=== PATIENT | male | born 1945 | race Caucasian/White ===

== ENCOUNTER → 2016-08-17 | Outpatient (CLI) | payer MEDICARE, OTHER ==
[2016-08-17 09:41] LABS: FREE T3 3.61 pg/mL (2.77-5.27)
[2016-08-17 09:55] LABS: THYROID STIMULATING HORMONE 2.39 uIU/mL (0.47-4.68)
[2016-08-17 10:34] LABS: FOLATE > 20.00 ng/mL (>2.76)
== END ==
LOC: OD 08:04
PROVIDERS: ATTEND Specialist
DX: G31.84 Mild cognitive impairment of uncertain or unknown etiology (principal); G47.33 Obstructive sleep apnea (adult) (pediatric)
CPT/HCPCS: 36415; 82607; 82746; 84439; 84443; 84481

== ENCOUNTER → 2016-12-13 | Outpatient (CLI) | payer MEDICARE, OTHER ==
[2016-12-13 08:12] LABS: ABSOLUTE EOSINOPHILS # (AUTO) 0.2 10^3/uL (0.0-0.6); ABSOLUTE LYMPHOCYTES (AUTO) 1.4 10^3/uL (0.5-4.7); ABSOLUTE MONOCYTES (AUTO) 0.5 10^3/uL (0.1-1.4); ABSOLUTE NEUT (AUTO) 3.9 10^3/uL (1.7-8.2); BASOPHILS % (AUTO) 0.8 % (0-2); EOSINOPHILS % (AUTO) 3.8 % (0-6); HEMATOCRIT 41.6 % (37.9-51.0); HGB HCT DIFFERENCE 0.4; LYMPHOCYTES % (AUTO) 22.5 % (13-45); MEAN CORPUSCULAR HEMOGLOBIN 30.7 pg (27.0-33.4); MEAN CORPUSCULAR HGB CONC 33.6 g/dL (32.0-36.0); MEAN CORPUSCULAR VOLUME 91 fl (80-97); MONOCYTES % (AUTO) 8.5 % (3-13); RED BLOOD COUNT 4.56 10^6/uL (4.35-5.55); SEGMENTED NEUTROPHILS % (AUTO) 64.4 % (42-78); WHITE BLOOD COUNT 6.1 10^3/uL (4.0-10.5)
--- NOTE | 2016-12-13 08:31 | RADIOLOGY REPORT (SQ) ---
EXAM DESCRIPTION: CHEST PA/LATERAL COMPLETED DATE/TIME: 12/13/2016 8:05 am REASON FOR STUDY: PRE-OP COMPARISON: 09/24/2015 EXAM PARAMETERS: NUMBER OF VIEWS: two views TECHNIQUE: Digital Frontal and Lateral radiographic views of the chest acquired. RADIATION DOSE: NA LIMITATIONS: none FINDINGS: LUNGS AND PLEURA: No opacities, masses or pneumothorax. No pleural effusion. MEDIASTINUM AND HILAR STRUCTURES: No masses or contour abnormalities. HEART AND VASCULAR STRUCTURES: Heart normal size. No evidence for failure. BONES: No acute findings. HARDWARE: None in the chest. OTHER: No other significant finding. IMPRESSION: NO SIGNIFICANT RADIOGRAPHIC FINDING IN THE CHEST. TECHNICAL DOCUMENTATION: JOB ID: [id number] [employer]- All Rights Reserved
[2016-12-13 08:32] LABS: APPEARANCE,URINE CLEAR; BILIRUBIN,URINE NEGATIVE (NEGATIVE); GLUCOSE, URINE NEGATIVE (NEGATIVE); KETONES,URINE NEGATIVE (NEGATIVE); LEUKOCYTE ESTERASE,URINE NEGATIVE (NEGATIVE); NITRITE,URINE NEGATIVE (NEGATIVE); PROTEIN,URINE 30 mg/dL (NEGATIVE); URINE SPECIFIC GRAVITY 1.019; UROBILINOGEN,URINE NEGATIVE mg/dL (<2.0)
[2016-12-13 08:42] LABS: ANION GAP 9 (5-19); BLOOD UREA NITROGEN 17 mg/dL (7-20); CALCIUM 9.7 mg/dL (8.4-10.2); CARBON DIOXIDE 29 mmol/L (22-30); CHLORIDE 102 mmol/L (98-107); CREATININE RESULT 0.82 mg/dL (0.52-1.25); GLUCOSE 106 mg/dL (75-110); SODIUM 139.8 mmol/L (137-145)
[2016-12-13 08:43] LABS: C-REACTIVE PROTEIN < 5.0 mg/L (<10.0)
--- NOTE | 2016-12-13 08:45 | EKG REPORT ---
SEVERITY:- ABNORMAL ECG - SINUS RHYTHM WITH BLOCKED APC SUPRAVENTRICULAR BIGEMINY PROBABLE LEFT ATRIAL ABNORMALITY RIGHT BUNDLE BRANCH BLOCK : Confirmed by: Meredith Wallace 13-Dec-2016 08:44:44
[2016-12-13 08:52] LABS: ERYTHROCYTE SEDIMENTATION RATE 35 mm/hr (0-20)
== END ==
LOC: OD 07:17
PROVIDERS: ATTEND Orthopaedic Surgery
DX: Z01.818 Encounter for other preprocedural examination (principal)
CPT/HCPCS: 36415; 71020; 80048; 81001; 83036; 85025; 85652; 86140; 93005; 93010

== ENCOUNTER 2017-01-10 05:20 | Inpatient (IN) | payer MEDICARE, OTHER ==
[~2017-01-10 05:20] MED LIST: BUPIVACAINE INJ/PF LIPOSOME/PF 266 MG/20 ML SDV INJ PRN; CEFAZOLIN INJ 1 GM VIAL IV PRN; IBUPROFEN 800 MG in NORMAL SALINE 250 ML IV PRN; RINGERS SOLUTION,LACTATED 1,000 ML IV PRN
[2017-01-10] MEDS: VANCOMYCIN HCL 1,000 MG in DEXTROSE 5%-WATER 250 ML IV PRN ×2 (06:22→11:16)
[2017-01-10] MEDS: OXYCODONE HCL SR 10 MG TABLET PO PRN ×2 (06:30→11:16)
[2017-01-10] MEDS: LANSOPRAZOLE 15 MG TAB.RAP.DR PO PRN ×2 (06:30→11:16)
[2017-01-10] MEDS ORDERED: THROMBIN (BOVINE) TOPICAL 20000 UNIT VIAL ONE (06:53)
[2017-01-10] MEDS ORDERED: THROMBIN (BOVINE) 5000 UNIT EPITAXIS KIT ONE (06:53)
[2017-01-10] MEDS ORDERED: BUPIVACAINE INJ/PF LIPOSOME/PF 266 MG/20 ML SDV ONE (06:53)
[2017-01-10] MEDS ORDERED: MIDAZOLAM 2 MG/2 ML INJ ONE (07:10)
[2017-01-10] MEDS ORDERED: TRANEXAMIC ACID INJ/PF 1,000 MG/10 ML SDV IV ONE (07:10)
[2017-01-10] MEDS ORDERED: PROPOFOL INJ 200 MG/20 ML VIAL IV ONE (07:10)
[2017-01-10] MEDS ORDERED: FENTANYL CITRATE INJ/PF 100 MCG/2 ML AMPUL ONE (07:10)
[2017-01-10] MEDS ORDERED: EPHEDRINE SULFATE INJ 50 MG/1 ML AMPULE ONE (07:11)
--- NOTE | 2017-01-10 07:14 | EKG REPORT ---
SEVERITY:- ABNORMAL ECG - SINUS RHYTHM SUPRAVENTRICULAR BIGEMINY RIGHT BUNDLE BRANCH BLOCK : Confirmed by: Reji Coelho MD 10-Jan-2017 07:14:02
[2017-01-10] MEDS ORDERED: MEPERIDINE HCL/PF INJ 25 MG/1 ML DISP.SYRIN IV PRN (08:27)
[2017-01-10] MEDS ORDERED: OXYCODONE-ACETAMINOPHEN 5-325 MG TABLET PO PRN ×2 (08:27)
[2017-01-10] MEDS ORDERED: MORPHINE SULFATE 10 MG/ML INJ IV PRN ×4 (08:27→08:49)
[2017-01-10] MEDS ORDERED: PROMETHAZINE HCL INJ 25 MG/1 ML VIAL IV PRN ×2 (08:27)
[2017-01-10] MEDS ORDERED: DIPHENHYDRAMINE HCL 50 MG/ML VIAL IV PRN ×2 (08:27→08:49)
[2017-01-10] MEDS ORDERED: FENTANYL CITRATE INJ/PF 100 MCG/2 ML AMPUL IV PRN ×3 (08:27)
--- NOTE | 2017-01-10 08:35 | Operative Report ---
Operative Report DATE OF SURGERY: 01/10/17 PREOPERATIVE DIAGNOSIS: Mechanical complication left total hip OPERATION: Left hip revision arthroplasty. Sciatic neuro lysis SURGEON: TARAH MOHR 1ST HELPER METAL HANGING: LEN AC ANESTHESIA: Spinal TISSUE REMOVED OR ALTERED: Cultures to microbiology. Implants to central sterile ESTIMATED BLOOD LOSS: 100 PROCEDURE: With the patient in a right lateral decubitus position on the operating table the left lower extremity hunker prepped and draped in sterile fashion. Curvilinear densities made over the greater trochanter in line with previous surgical approach. The sciatic nerve is identified in the sciatic notch and traced distally to the gluteal sling. Is protected throughout its length for the remainder of the case. Upon entering the capsule cultures were taken and sent for culture and sensitivity. The hip is dislocated. The existing ceramic head is disimpacted. Attention is now turned to the acetabulum. Soft tissues cleared off the room and the acetabulum and the existing polyethylene is removed using an osteotome. Subsequently a Biomet 36 mm cross-link polyethylene liner was impacted into position. Trial reductions in outperformed 36 mm heads and increasing neck length extension. We settle on a +6. Subsequent 36 mm chrome cobalt head with a 6 mm neck extension is impacted onto the trunnion. The hip was reduced. The wound is kamini with pulse lavage. The soft tissues closed with interrupted Vicryl and the skin with dionisio. A sterile compressive dressing was applied and the patient returned to PACU satisfactory condition.
[2017-01-10] MEDS ORDERED: MORPHINE SULFATE 10 MG/ML INJ IM PRN (08:49)
[2017-01-10] MEDS ORDERED: OXYCODONE HCL IR 5 MG TABLET PO PRN (08:49)
[2017-01-10] MEDS ORDERED: RINGERS SOLUTION,LACTATED 1,000 ML IV PRN (08:49)
[2017-01-10] MEDS ORDERED: ONDANSETRON 4 MG TAB.RAPDIS PO PRN ×2 (08:49→13:00)
[2017-01-10] MEDS ORDERED: DEXTROSE 40% GEL 15 GM TUBE PO PRN (09:34)
[2017-01-10] MEDS ORDERED: INSULIN LISPRO 100 UNIT/ML 3 ML VIAL SUBCUT PRN (09:34)
[2017-01-10] MEDS ORDERED: DEXTROSE 50%-WATER SYRINGE 12.5 GM/25 ML DOSE IV PRN (09:34)
[2017-01-10] MEDS ORDERED: DEXTROSE 50%-WATER SYRINGE 25 GM/50 ML DOSE IV PRN (09:34)
[2017-01-10] MEDS ORDERED: DEXTROSE 40% GEL 15 GM TUBE X 2 PO PRN (09:34)
[2017-01-10] MEDS ORDERED: GLUCAGON,HUMAN RECOMB 1 MG INJ IM PRN (09:34)
[2017-01-10] MEDS ORDERED: ONDANSETRON HCL INJ/PF 4 MG/2 ML SDV ONE ×2 (09:37→13:15)
[2017-01-10] MEDS ORDERED: [UNRECOGNIZED DRUG - REMARK] PO SCH (10:00)
[2017-01-10] MEDS ORDERED: LISINOPRIL PO SCH (10:00)
[2017-01-10] MEDS ORDERED: (PENDING PHARMACY ID) (Sitagliptin Phos/Metformin Hcl [Janumet 50-1,000 Mg Tablet] 1 TAB) PO SCH (10:00)
[2017-01-10] MEDS ORDERED: THIAMINE HCL PO SCH (10:00)
[2017-01-10] MEDS ORDERED: OXYCODONE HCL SR 10 MG TABLET PO SCH (10:00)
[2017-01-10] MEDS ORDERED: METFORMIN HCL 500 MG TABLET PO SCH (10:00)
--- NOTE | 2017-01-10 10:05 | RADIOLOGY REPORT (SQ) ---
EXAM DESCRIPTION: HIP LEFT AP/LATERAL COMPLETED DATE/TIME: 01/10/2017 9:38 am REASON FOR STUDY: Post Op Long Cassette in PACU T84.031A MECH LOOSENING OF INTERNAL LEFT HIP PROST HETIC JOIN COMPARISON: 08/25/2014 NUMBER OF VIEWS: Two views. TECHNIQUE: AP and frog-leg view of the left hip. LIMITATIONS: None. FINDINGS: MINERALIZATION: There is osteopenia. LEFT HIP: There has been bone resorption around the proximal aspect of the prosthesis. No acute frac ture or dislocation. OPPOSITE HIP: There are degenerative changes in the right hip. SOFT TISSUES: No findings. OTHER: No other significant finding. IMPRESSION: There is been bone resorption along the medial aspect of the femoral shaft when compared to prior study. There has been a slight increase in heterotopic bone superior and laterally. TECHNICAL DOCUMENTATION: JOB ID: [id number] [employer]- All Rights Reserved
[2017-01-10] MEDS ORDERED: TRANEXAMIC ACID INJ/PF 1,000 MG/10 ML SDV IV PRN (10:30)
[2017-01-10] MEDS: PREGABALIN 75 MG CAPSULE PO SCH ×2 (11:44→17:31)
[2017-01-10] MEDS ORDERED: LISINOPRIL 10 MG TABLET PO ONE (12:00)
[2017-01-10] MEDS ORDERED: THIAMINE HCL 100 MG TABLET PO ONE (12:00)
[2017-01-10] MEDS ORDERED: CETIRIZINE 10 MG TABLET PO ONE (12:00)
[2017-01-10] MEDS ORDERED: ACETAMINOPHEN 100 ML IV ONE (14:50)
[2017-01-10] MEDS: IBUPROFEN 800 MG in NORMAL SALINE 250 ML IV SCH (17:31)
[2017-01-10] MEDS: SITAGLIPTIN PHOSPHATE 50 MG TABLET PO SCH (17:31)
[2017-01-10] MEDS: METFORMIN HCL 500 MG TABLET PO SCH (17:31)
[2017-01-10] MEDS ORDERED: VANCOMYCIN HCL 1,000 MG in DEXTROSE 5%-WATER 250 ML IV ONE (21:00)
[2017-01-10] MEDS: OXYCODONE HCL SR 10 MG TABLET PO SCH (22:06)
[2017-01-10] MEDS: CYCLOBENZAPRINE HCL 10 MG TABLET PO SCH (22:07)
[2017-01-10] MEDS: RIVAROXABAN 10 MG TABLET PO SCH (22:08)
[2017-01-11] MEDS: IBUPROFEN 800 MG in NORMAL SALINE 250 ML IV SCH ×3 (02:50→17:22)
[2017-01-11] MEDS: LANSOPRAZOLE 30 MG TAB.RAP.DR PO SCH (05:02)
[2017-01-11 05:29] LABS: ANION GAP 10 (5-19); BLOOD UREA NITROGEN 10 mg/dL (7-20); CALCIUM 8.9 mg/dL (8.4-10.2); CARBON DIOXIDE 29 mmol/L (22-30); CHLORIDE 100 mmol/L (98-107); CREATININE RESULT 0.72 mg/dL (0.52-1.25); GLUCOSE 114 mg/dL (75-110); POTASSIUM 4.4 mmol/L (3.6-5.0); SODIUM 139.1 mmol/L (137-145)
[2017-01-11 05:30] LABS: HEMATOCRIT 35.3 % (37.9-51.0); HEMOGLOBIN 12.1 g/dL (13.5-17.0); MEAN CORPUSCULAR HGB CONC 34.3 g/dL (32.0-36.0); MEAN CORPUSCULAR VOLUME 91 fl (80-97); RED CELL DISTRIBUTION WIDTH 13.9 % (11.5-14.0); WHITE BLOOD COUNT 6.8 10^3/uL (4.0-10.5)
--- NOTE | 2017-01-11 06:47 | PDOC PROGRESS REPORT ---
Subjective Progress Note for:: 01/11/17 Subjective:: Patient complaining about right hip pain Physical Exam Vital Signs: Temp Pulse Resp BP Pulse Ox 36.4 C 80 20 154/79 H 95 01/10/17 23:24 01/11/17 02:00 01/10/17 23:24 01/10/17 23:24 01/10/17 23:24 Intake & Output 01/09/17 01/10/17 01/11/17 06:59 06:59 06:59 Intake Total 4910 Output Total 2375 Balance 2535 General appearance: PRESENT: mild distress Head exam: PRESENT: normocephalic Eye exam: PRESENT: EOMI Respiratory exam: PRESENT: unlabored Cardiovascular exam: PRESENT: RRR Pulses: PRESENT: +1 pedal pulses bilateral Vascular exam: PRESENT: normal capillary refill GI/Abdominal exam: PRESENT: soft Rectal exam: PRESENT: deferred Extremities exam: PRESENT: other - Left hip dressing clean dry and intact. Leg lengths are equal. Distal neurovascular examination is intact. Neurological exam: PRESENT: alert, awake, oriented to person, oriented to place , oriented to time, oriented to situation. ABSENT: motor sensory deficit Psychiatric exam: PRESENT: appropriate affect, normal mood. ABSENT: homicidal ideation, suicidal ideation Skin exam: PRESENT: dry, intact, warm. ABSENT: cyanosis, rash Results Laboratory Results: 01/11/17 05:00 01/11/17 05:00 01/11/17 01/11/17 05:00 05:00 WBC 6.8 RBC 3.90 L Hgb 12.1 L Hct 35.3 L MCV 91 MCH 31.0 MCHC 34.3 RDW 13.9 Plt Count 189 Sodium 139.1 Potassium 4.4 Chloride 100 Carbon Dioxide 29 Anion Gap 10 BUN 10 Creatinine 0.72 Est GFR ( Amer) > 60 Est GFR (Non-Af Amer) > 60 Glucose 114 H Calcium 8.9 Impressions: Hip X-Ray 01/10/17 08:54 IMPRESSION: There is been bone resorption along the medial aspect of the femoral shaft when compared to prior study. There has been a slight increase in heterotopic bone superior and laterally. Status: Imported from PACS Assessment & Plan - Diagnosis (1) Other mechanical complication of internal left hip prosthesis Is this a current diagnosis for this admission?: Yes Plan: 71-year-old white male postop day 1 from left hip revision arthroplasty. Patient is not complaining of left lower extremity pain. Wound is clean dry and intact. He is working with physical therapy and ambulation and was able to ambulate 80 feet yesterday. Hematocrit remains above 35%. Blood glucose was controlled between 132 and 140. Anticipate discharge home tomorrow with home health nursing, home health physical therapy, wheeled walker, bedside commode. - Time Time Spent with patient: 15-24 minutes Anticipated discharge: Home with Homehealth Within: within 24 hours
[2017-01-11] MEDS: PREGABALIN 75 MG CAPSULE PO SCH ×2 (09:31→17:24)
[2017-01-11] MEDS: FOLIC ACID 1 MG TABLET PO SCH (09:32)
[2017-01-11] MEDS: CETIRIZINE 10 MG TABLET PO SCH (09:32)
[2017-01-11] MEDS: METFORMIN HCL 500 MG TABLET PO SCH ×2 (09:32→17:24)
[2017-01-11] MEDS: THIAMINE HCL 100 MG TABLET PO SCH (09:32)
[2017-01-11] MEDS: SITAGLIPTIN PHOSPHATE 50 MG TABLET PO SCH ×2 (09:33→17:24)
[2017-01-11] MEDS: GABAPENTIN 300 MG CAPSULE PO SCH (09:33)
[2017-01-11] MEDS: HYDROCHLOROTHIAZIDE 12.5 MG CAPSULE PO SCH (09:33)
[2017-01-11] MEDS: METOPROLOL SUCCINATE 50 MG TAB.SR.24H PO SCH (09:34)
[2017-01-11] MEDS: OXYCODONE HCL SR 10 MG TABLET PO SCH ×2 (09:34→21:59)
[2017-01-11] MEDS: LISINOPRIL 10 MG TABLET PO SCH (09:35)
[2017-01-11] MEDS ORDERED: LISINOPRIL 10 MG TABLET PO SCH (10:00)
[2017-01-11] MEDS: CYCLOBENZAPRINE HCL 10 MG TABLET PO SCH (21:56)
[2017-01-11] MEDS: ATORVASTATIN CALCIUM 20 MG TABLET PO SCH (21:56)
[2017-01-11] MEDS: RIVAROXABAN 10 MG TABLET PO SCH (21:57)
[2017-01-12] MEDS ORDERED: ACETAMINOPHEN 325 MG TABLET PO PRN (01:03)
[2017-01-12] MEDS: IBUPROFEN 800 MG in NORMAL SALINE 250 ML IV SCH ×2 (01:10→10:54)
[2017-01-12 01:33] LABS: APPEARANCE,URINE SLIGHTLY-CLOUDY; BILIRUBIN,URINE NEGATIVE (NEGATIVE); GLUCOSE, URINE NEGATIVE (NEGATIVE); KETONES,URINE NEGATIVE (NEGATIVE); LEUKOCYTE ESTERASE,URINE NEGATIVE (NEGATIVE); NITRITE,URINE NEGATIVE (NEGATIVE); PROTEIN,URINE NEGATIVE (NEGATIVE); URINE SPECIFIC GRAVITY 1.014; UROBILINOGEN,URINE NEGATIVE mg/dL (<2.0)
[2017-01-12 05:14] LABS: HEMATOCRIT 31.9 % (37.9-51.0); HGB HCT DIFFERENCE 1.1; MEAN CORPUSCULAR HEMOGLOBIN 31.3 pg (27.0-33.4); MEAN CORPUSCULAR HGB CONC 34.4 g/dL (32.0-36.0); MEAN CORPUSCULAR VOLUME 91 fl (80-97); RED BLOOD COUNT 3.51 10^6/uL (4.35-5.55); WHITE BLOOD COUNT 8.7 10^3/uL (4.0-10.5)
[2017-01-12] MEDS: LANSOPRAZOLE 30 MG TAB.RAP.DR PO SCH (05:24)
--- NOTE | 2017-01-12 07:09 | PDOC PROGRESS REPORT ---
Subjective Progress Note for:: 01/12/17 Subjective:: "I have to get up and pee". Patient with mental status changes. Self discontinued both telemetry as well as his IV Physical Exam Vital Signs: Temp Pulse Resp BP Pulse Ox 38.3 C H 77 20 113/50 L 90 L 01/12/17 00:00 01/12/17 02:00 01/12/17 00:00 01/12/17 00:00 01/12/17 00:00 Intake & Output 01/11/17 01/12/17 01/13/17 06:59 06:59 06:59 Intake Total 5210 950 Output Total 3875 1150 Balance 1335 -200 Weight 117.9 kg General appearance: PRESENT: no acute distress Head exam: PRESENT: normocephalic Respiratory exam: PRESENT: unlabored Cardiovascular exam: PRESENT: RRR Pulses: PRESENT: +1 pedal pulses bilateral Vascular exam: PRESENT: normal capillary refill GI/Abdominal exam: PRESENT: soft Rectal exam: PRESENT: deferred Musculoskeletal exam: PRESENT: other - Left hip dressing is clean dry and intact. Leg lengths are equal. Distal neurovascular examination is intact. Neurological exam: PRESENT: alert, awake, oriented to person, oriented to place , other - Patient exhibiting mental status changes Psychiatric exam: PRESENT: agitated Skin exam: PRESENT: dry, intact, warm. ABSENT: cyanosis, rash Results Laboratory Results: 01/12/17 05:04 01/11/17 05:00 01/12/17 01/12/17 00:50 05:04 WBC 8.7 RBC 3.51 L Hgb 11.0 L Hct 31.9 L MCV 91 MCH 31.3 MCHC 34.4 RDW 14.0 Plt Count 174 Urine Color YELLOW Urine Appearance SLIGHTLY-CLOUDY Urine pH 5.0 Ur Specific [place] 1.014 Urine Protein NEGATIVE Urine Glucose (UA) NEGATIVE Urine Ketones NEGATIVE Urine Blood NEGATIVE Urine Nitrite NEGATIVE Ur Leukocyte Esterase NEGATIVE Urine WBC (Auto) 2 Urine RBC (Auto) 1 Impressions: Hip X-Ray 01/10/17 08:54 IMPRESSION: There is been bone resorption along the medial aspect of the femoral shaft when compared to prior study. There has been a slight increase in heterotopic bone superior and laterally. Status: Imported from PACS Assessment & Plan - Diagnosis (1) Other mechanical complication of internal left hip prosthesis Is this a current diagnosis for this admission?: Yes Plan: Patient with excellent progress with physical therapy is to ambulate 200 feet. However the patient was febrile last night to 38.3C. He was pancultured. Results are pending. White count has increased 8.7. He is exhibiting mental status changes and this is likely secondary to pharmacy. OxyContin, oxycodone, and Ambien are discontinued. Patient will continue on with physical therapy stay and observation. Hopefully the mental status changes will reverse and the patient can be discharged home. - Time Time Spent with patient: 15-24 minutes Anticipated discharge: Home with Homehealth Within: within 24 hours
[2017-01-12] MEDS: HYDROCHLOROTHIAZIDE 12.5 MG CAPSULE PO SCH (10:51)
[2017-01-12] MEDS: METOPROLOL SUCCINATE 50 MG TAB.SR.24H PO SCH (10:51)
[2017-01-12] MEDS: THIAMINE HCL 100 MG TABLET PO SCH (10:52)
[2017-01-12] MEDS: LISINOPRIL 10 MG TABLET PO SCH (10:52)
[2017-01-12] MEDS: SITAGLIPTIN PHOSPHATE 50 MG TABLET PO SCH ×2 (10:52→18:24)
[2017-01-12] MEDS: CETIRIZINE 10 MG TABLET PO SCH (10:53)
[2017-01-12] MEDS: GABAPENTIN 300 MG CAPSULE PO SCH (10:53)
[2017-01-12] MEDS: METFORMIN HCL 500 MG TABLET PO SCH ×2 (10:53→18:25)
[2017-01-12] MEDS: PREGABALIN 75 MG CAPSULE PO SCH ×2 (10:53→18:24)
[2017-01-12] MEDS: FOLIC ACID 1 MG TABLET PO SCH (10:54)
[2017-01-12] MEDS: RIVAROXABAN 10 MG TABLET PO SCH (21:56)
[2017-01-12] MEDS: CYCLOBENZAPRINE HCL 10 MG TABLET PO SCH (21:56)
[2017-01-12] MEDS: ATORVASTATIN CALCIUM 20 MG TABLET PO SCH (21:56)
[2017-01-13] MEDS: LANSOPRAZOLE 30 MG TAB.RAP.DR PO SCH (04:28)
[2017-01-13 06:40] LABS: HEMATOCRIT 31.4 % (37.9-51.0); HEMOGLOBIN 10.7 g/dL (13.5-17.0); HGB HCT DIFFERENCE 0.7; MEAN CORPUSCULAR VOLUME 91 fl (80-97); RED BLOOD COUNT 3.46 10^6/uL (4.35-5.55); RED CELL DISTRIBUTION WIDTH 13.9 % (11.5-14.0); WHITE BLOOD COUNT 9.2 10^3/uL (4.0-10.5)
--- NOTE | 2017-01-13 06:56 | PDOC DISCHARGE SUMMARY ---
General - Admit/Disc Date/PCP Admission Date/Primary Care Provider: 01/10/17 05:20 Discharge Date: 01/13/17 - Discharge Diagnosis (1) Other mechanical complication of internal left hip prosthesis Is this a current diagnosis for this admission?: Yes - Additional Information Resuscitation Status: Full Code Discharge Diet: As Tolerated, Regular Discharge Activity: Balance Activity w/Rest, No Driving, No tub bath Home Medications: Aspirin [Ecotrin 81 mg EC Tablet] 81 mg PO DAILY 01/10/17 Atorvastatin Calcium [Lipitor 20 mg Tablet] 20 mg PO QHS 01/10/17 Celecoxib [Celebrex 200 mg Capsule] 200 mg PO DAILY 01/10/17 Cetirizine HCl [Zyrtec 10 mg Chewable Tab] 10 mg PO DAILY 01/10/17 Folic Acid [Folvite 1 mg Tablet] 1 mg PO DAILY 01/10/17 Gabapentin [Neurontin 300 mg Capsule] 300 mg PO Q8 01/10/17 Hydrochlorothiazide [Hydrodiuril 12.5 mg Capsule] 12.5 mg PO DAILY 01/10/17 Lisinopril [Prinivil 40 mg Tablet] 40 mg PO DAILY 01/10/17 Metoprolol Succinate [Toprol Xl 50 mg Tab.sr] 50 mg PO DAILY 01/10/17 Sitagliptin Phos/Metformin HCl [Janumet 50-1,000 mg Tablet] 1 tab PO BID Thiamine HCl [Vitamin B-1] 100 mg PO DAILY 01/10/17 Rivaroxaban [Xarelto 10 mg Tablet] 10 mg PO QHS tablet 01/13/17 History of Present Illness History of Present Illness: DAVID SANTANA is a 71 year old male status post left hip arthroplasty in the distant past with polyethylene wear. Patient is also having progressive ostial lysis along the calcar. Patient is admitted for elective left hip revision arthroplasty. Hospital Course Hospital Course: Patient is admitted through the operating where he undergoes an uncomplicated left hip arthroplasty. Is returned to the floor in satisfactory condition. He makes excellent progress with physical therapy. Initially has some mental status changes then I attribute to medication. Medications stop and his mental status improves. He continues to make excellent progress with physical therapy. Physical Exam Vital Signs: Temp Pulse Resp BP Pulse Ox 36.6 C 87 20 143/61 H 92 01/13/17 03:57 01/13/17 03:57 01/13/17 03:57 01/13/17 03:57 01/13/17 03:57 Intake & Output 01/11/17 01/12/17 01/13/17 06:59 06:59 06:59 Intake Total 5210 1070 1550 Output Total 3875 1370 850 Balance 1335 -300 700 Weight 117.9 kg General appearance: PRESENT: no acute distress Head exam: PRESENT: normocephalic Eye exam: PRESENT: EOMI Respiratory exam: PRESENT: unlabored Cardiovascular exam: PRESENT: RRR Pulses: PRESENT: +1 pedal pulses bilateral Vascular exam: PRESENT: normal capillary refill GI/Abdominal exam: PRESENT: soft Rectal exam: PRESENT: deferred Extremities exam: PRESENT: other - Left hip dressing clean dry and intact. Leg lengths are equal. Distal neurovascular examination is intact. Neurological exam: PRESENT: alert, awake, oriented to person, oriented to place , oriented to time, oriented to situation. ABSENT: motor sensory deficit Psychiatric exam: PRESENT: appropriate affect, normal mood. ABSENT: homicidal ideation, suicidal ideation Skin exam: PRESENT: dry, intact, warm. ABSENT: cyanosis, rash Results Laboratory Results: 01/13/17 06:13 01/11/17 05:00 01/13/17 06:13 WBC 9.2 RBC 3.46 L Hgb 10.7 L Hct 31.4 L MCV 91 MCH 31.0 MCHC 34.0 RDW 13.9 Plt Count 180 Impressions: Hip X-Ray 01/10/17 08:54 IMPRESSION: There is been bone resorption along the medial aspect of the femoral shaft when compared to prior study. There has been a slight increase in heterotopic bone superior and laterally. Status: Imported from PACS Plan Discharge Plan: Patient to be discharged home with home health nursing, home health physical therapy, wheeled walker, bedside commode. Visiting nurse service can change left hip dressing as needed. Follow-up will be with Dr. Ulloa and [facility] for surgery in 2 weeks for staple removal.
[2017-01-13] MEDS: THIAMINE HCL 100 MG TABLET PO SCH (09:55)
[2017-01-13] MEDS: CETIRIZINE 10 MG TABLET PO SCH (09:55)
[2017-01-13] MEDS: HYDROCHLOROTHIAZIDE 12.5 MG CAPSULE PO SCH (09:55)
[2017-01-13] MEDS: GABAPENTIN 300 MG CAPSULE PO SCH (09:56)
[2017-01-13] MEDS: FOLIC ACID 1 MG TABLET PO SCH (09:56)
[2017-01-13] MEDS: METOPROLOL SUCCINATE 50 MG TAB.SR.24H PO SCH (09:56)
[2017-01-13] MEDS: SITAGLIPTIN PHOSPHATE 50 MG TABLET PO SCH (09:56)
[2017-01-13] MEDS: PREGABALIN 75 MG CAPSULE PO SCH (09:56)
[2017-01-13] MEDS: METFORMIN HCL 500 MG TABLET PO SCH (09:57)
[2017-01-13] MEDS: LISINOPRIL 10 MG TABLET PO SCH (09:57)
[2017-01-13 11:36] VITALS: BP 148/64
== END 2017-01-13 12:10 | disposition home health service (06) | DRG 468 ==
LOC: INOR 05:20 → 4S 10:25
PROVIDERS: ADMIT Orthopaedic Surgery; ATTEND Orthopaedic Surgery
PROC: 0SUE09Z Supplement Left Hip Joint, Acetabular Surface with Liner, Open Approach (ICD-10-PCS; 2017-01-10)
PROC: 0SRB02A Replacement of Left Hip Joint with Metal on Polyethylene Synthetic Substitute, Uncemented, Open Approach (ICD-10-PCS; 2017-01-10)
PROC: 0SPB0JZ Removal of Synthetic Substitute from Left Hip Joint, Open Approach (ICD-10-PCS; 2017-01-10)
PROC: 0SPB09Z Removal of Liner from Left Hip Joint, Open Approach (ICD-10-PCS; principal; 2017-01-10 07:30)
DX: T84.031A Mechanical loosening of internal left hip prosthetic joint, initial encounter (principal); M25.552 Pain in left hip; I10 Essential (primary) hypertension; E78.5 Hyperlipidemia, unspecified; E11.9 Type 2 diabetes mellitus without complications; R41.82 Altered mental status, unspecified; T40.2X5A Adverse effect of other opioids, initial encounter; T42.6X5A Adverse effect of other antiepileptic and sedative-hypnotic drugs, initial encounter; Y92.230 Patient room in hospital as the place of occurrence of the external cause; Z96.642 Presence of left artificial hip joint; Z79.82 Long term (current) use of aspirin; Z79.84 Long term (current) use of oral hypoglycemic drugs; Z79.899 Other long term (current) drug therapy
CPT/HCPCS: 01215; 36415; 80048; 81001; 82962; 84132; 85027; 86850; 86900; 86901; 87040; 87070; 87075; 87205; 93005; 93010; 94799; C2620; C9290; G8978-GP; G8979-GP; G8987-GO; G8988-GO; J0131; J0690; J1741; J2250; J2405; J2704; J3010; J3370; J3490; J7050; J7060; S0119

== ENCOUNTER 2017-01-30 12:12 | Emergency (ER) | payer MEDICARE, OTHER ==
[2017-01-30] MEDS ORDERED: HYDROMORPHONE HCL INJ/PF 2 MG/ML AMPULE IV ONE (12:22)
--- NOTE | 2017-01-30 12:51 | RADIOLOGY REPORT (SQ) ---
EXAM DESCRIPTION: HIP LEFT AP/LATERAL COMPLETED DATE/TIME: 01/30/2017 12:43 pm REASON FOR STUDY: bed 17 left hip ?dislocation COMPARISON: None. NUMBER OF VIEWS: Two views. TECHNIQUE: AP pelvis and additional frog-leg view of the left hip. LIMITATIONS: None. FINDINGS: MINERALIZATION: Normal. LEFT HIP: Superior dislocation prosthetic femoral head from prosthetic acetabulum. RIGHT HIP: Osteoarthritis. No fracture or dislocation. No worrisome bone lesions. PUBIS AND ISCHIUM: No fracture. PELVIS: No fracture. SACRUM: No fracture or dislocation. No worrisome bone lesions. LOWER LUMBAR SPINE: No fracture or dislocation. No worrisome bone lesions. No significant disc disea se. SOFT TISSUES: No findings. OTHER: No other significant finding. IMPRESSION: DISLOCATION PROSTHETIC LEFT HIP ABOVE. NO FRACTURE. TECHNICAL DOCUMENTATION: JOB ID: [id number] [employer]- All Rights Reserved
[2017-01-30] MEDS ORDERED: KETAMINE HCL INJ 500 MG/10 ML VIAL IV ONE (12:58)
[2017-01-30] MEDS ORDERED: MIDAZOLAM 2 MG/2 ML INJ IV ONE (12:58)
--- NOTE | 2017-01-30 14:15 | RADIOLOGY REPORT (SQ) ---
EXAM DESCRIPTION: HIP UNILATERAL-1 VIEW COMPLETED DATE/TIME: 01/30/2017 2:04 pm REASON FOR STUDY: Replacement of dislocation COMPARISON: 01/30/2017 NUMBER OF VIEWS: One view. TECHNIQUE: AP view of the left hip. LIMITATIONS: None. FINDINGS: MINERALIZATION: Normal. LEFT HIP: Interval relocation prosthetic left hip. No new abnormality identified. SOFT TISSUES: No findings. OTHER: No other significant finding. IMPRESSION: INTERVAL RELOCATION PROSTHETIC LEFT HIP. TECHNICAL DOCUMENTATION: JOB ID: [id number] [employer]- All Rights Reserved
--- NOTE | 2017-01-30 14:23 | ER Document Report ---
ED General - General Chief Complaint: Hip Injury Stated Complaint: HIP PAIN Time Seen by Provider: 01/30/17 12:22 TRAVEL OUTSIDE OF THE [place] IN LAST 30 DAYS: No - HPI Patient complains to provider of: Hip dislocation Notes: Patient coming in for evaluation of hip pain. Patient has obvious deformity to the left hip. Patient states he was in the shower when he was sitting down in a chair extended his left leg out and he felt the hip dislocated. Patient states last meal was approximately 30 this morning. Patient otherwise denies any other medical issues. Recent revision approximately January 05 by local orthopedic surgeon Dr. Mohr. Patient states no complications states no history of chronic hip dislocation. States past medical history is positive for hypertension and diabetes - Related Data Allergies/Adverse Reactions: No Known Allergies Allergy (Verified 12/29/16 12:36) Past Medical History - Social History Smoking Status: Unknown if Ever Smoked Family History: Other - Patient states he does not know his family history he left home when he was 19 did not know it before then and never went back home now they're both he is an only child.. denies: CAD - Past Medical History Cardiac Medical History: Reports: Hx Hypercholesterolemia, Hx Hypertension Denies: Hx Atrial Fibrillation, Hx Congestive Heart Failure, Hx Coronary Artery Disease, Hx DVT, Hx Heart Attack, Hx Peripheral Vascular Disease, Hx Heart Murmur Endocrine Medical History: Reports: Hx Diabetes Mellitus Type 2. Denies: Hx Graves' Disease, Hx Hyperthyroidism, Hx Hypothyroidism Malignancy Medical History: Denies Hx Leukemia Musculoskeltal Medical History: Reports Hx Arthritis, Denies Hx Fibromyalgia, Denies Hx Muscular Dystrophy Traumatic Medical History: Denies: Hx Fractures Infectious Medical History: Denies: Hx HIV Past Surgical History: Reports: Hx Appendectomy, Hx Orthopedic Surgery - left hip replacement, Hx Tonsillectomy. Denies: Hx Bowel Surgery, Hx Cholecystectomy , Hx Coronary Artery Bypass Graft, Hx Gastric Bypass Surgery, Hx Herniorrhaphy, Hx Pacemaker - Immunizations Hx Diphtheria, Pertussis, Tetanus Vaccination: Yes Hx Pneumococcal Vaccination: 04/25/14 Review of Systems - Review of Systems Constitutional: Other - Hip dislocation EENT: No symptoms reported Cardiovascular: No symptoms reported Respiratory: No symptoms reported Gastrointestinal: No symptoms reported Genitourinary: No symptoms reported Male Genitourinary: No symptoms reported Musculoskeletal: No symptoms reported Skin: No symptoms reported Hematologic/Lymphatic: No symptoms reported Neurological/Psychological: No symptoms reported Physical Exam - Vital signs Vitals: Temp Pulse Resp BP Pulse Ox 97.9 F 77 18 153/100 H 94 01/30/17 12:22 01/30/17 12:22 01/30/17 12:22 01/30/17 12:22 01/30/17 12:22 Interpretation: Normal - General General appearance: Appears well, Alert - HEENT Head: Normocephalic, Atraumatic Eyes: Normal Pupils: PERRL - Respiratory Respiratory status: No respiratory distress Chest status: Nontender Breath sounds: Normal Chest palpation: Normal - Cardiovascular Rhythm: Regular Heart sounds: Normal auscultation Murmur: No - Abdominal Inspection: Normal Distension: No distension Bowel sounds: Normal Tenderness: Nontender Organomegaly: No organomegaly - Back Back: Normal, Nontender - Extremities General upper extremity: Normal inspection, Nontender, Normal color, Normal ROM , Normal temperature General lower extremity: Tender. No: Normal inspection - Obvious deformity to the left hip - Neurological Neuro grossly intact: Yes Cognition: Normal Orientation: AAOx4 [place] Coma Scale Eye Opening: Spontaneous [place] Coma Scale Verbal: Oriented [place] Coma Scale Motor: Obeys Commands [place] Coma Scale Total: 15 Speech: Normal Motor strength normal: LUE, RUE, LLE, RLE Sensory: Normal - Psychological Associated symptoms: Normal affect, Normal mood - Skin Skin Temperature: Warm Skin Moisture: Dry Skin Color: Normal Course - Re-evaluation Re-evalutation: 01/30/17 15:02 Dislocation of the left hip was confirmed on x-ray. Patient underwent conscious sedation without difficulty brief period of apnea was back for approximately 45 seconds with relocation achieved. Discussed with covering orthopedic Dr. Alas agrees with outpatient follow-up use of abductor pillow at home. - Vital Signs Vital signs: Temp Pulse Resp BP Pulse Ox 97.9 F 65 13 173/75 H 95 01/30/17 12:22 01/30/17 14:20 01/30/17 14:20 01/30/17 14:16 01/30/17 14:20 Procedures - Conscious Sedation Conscious sedation Time started: 13:27 Time completed: 13:41 Consent obtained: Yes Indication: Hip dislocation Last meal: 830am Prior complications: Procedural sedation Pt with a mild systemic disease.: P2. - ASA Classification. Airway Evaluation: Normal anatomy Mallampati Classification: Class 2 Used during procedure: Suction available, IV access obtained, Pulse ox on pt., monitor technician on pt. Medications administered: Versed, Ketamine Reversal agents: None I personally performed/intraservice time: Sedation, Procedure, 30 min or less Complications: No Notes: Brief period of apnea patient was bagged for approximately 45 seconds. - Joint Reduction/Fracture Care Left Hip Consent obtained: Yes Conscious sedation: Yes Pre-procedure NV exam: Yes Manipulation comment: Gentle traction Post-reduction x-ray: Joint reduced Reduction attempts: 1 Complications: No Discharge - Discharge Clinical Impression: Hip dislocation, left Qualifiers: Encounter type: initial encounter Qualified Code(s): S73.005A - Unspecified dislocation of left hip, initial encounter Condition: Good Disposition: HOME, SELF-CARE Instructions: Dislocated Artificial Hip ([facility]), Post Sedation Instructions ([facility]) Additional Instructions: Please follow-up with orthopedic doctor within the next 5 days. Please read discharge instructions carefully. Please use the abductor pillow when resting Referrals: RIAZ SIEGEL FNP [Primary Care Provider] - Follow up as needed TARAH MOHR MD [ACTIVE STAFF] - Follow up in 3-5 days
[2017-01-30 16:13] VITALS: BP 176/78
--- NOTE | 2017-01-30 17:02 | EKG REPORT ---
SEVERITY:- ABNORMAL ECG - SINUS RHYTHM RIGHT BUNDLE BRANCH BLOCK : Confirmed by: Cathy Anand MD 30-Jan-2017 17:02:16
--- NOTE | 2017-01-31 06:24 | EKG REPORT ---
SEVERITY:- ABNORMAL ECG - SINUS RHYTHM REPOL ABNRM SUGGESTS ISCHEMIA, LATERAL LEADS : Confirmed by: Cathy Anand MD 31-Jan-2017 06:23:16
== END 2017-01-30 16:55 | disposition home or self-care (01) ==
LOC: ER 12:12
PROC: 0SSBXZZ Reposition Left Hip Joint, External Approach (ICD-10-PCS; principal; 2017-01-30)
DX: T84.021A Dislocation of internal left hip prosthesis, initial encounter (principal); X58.XXXA Exposure to other specified factors, initial encounter; E78.00 Pure hypercholesterolemia, unspecified; I10 Essential (primary) hypertension; E11.9 Type 2 diabetes mellitus without complications; Z96.642 Presence of left artificial hip joint
CPT/HCPCS: 27265; 93005; 99284; 99153; 99152; 96374; 82962; 73501; 73502; 93010; J2250; J3490; J1170

== ENCOUNTER 2017-06-25 08:59 | Emergency (ER) | payer MEDICARE, OTHER ==
[2017-06-25] MEDS ORDERED: PROPOFOL INJ 200 MG/20 ML VIAL IV ONE ×2 (09:39→10:18)
--- NOTE | 2017-06-25 09:39 | ER Document Report ---
ED General - General Chief Complaint: Fall Injury Stated Complaint: HIP INJURY Time Seen by Provider: 06/25/17 09:08 Mode of Arrival: Medic Information source: Patient, Emergency Med Personnel Notes: 71-year-old male history of hip replacement on the left by Dr. Mohr who has had 2 previous dislocations presents with complaints of another dislocation. Patient notes that he was bending over and felt a pop out. He denies any weakness numbness or any other concerns TRAVEL OUTSIDE OF THE [place] IN LAST 30 DAYS: No - HPI Onset: Just prior to arrival Onset/Duration: Sudden Quality of pain: Achy Severity: Mild Pain Level: 1 Associated symptoms: Body/muscle aches Exacerbated by: Movement Relieved by: Denies Similar symptoms previously: Yes Recently seen / treated by doctor: Yes - Related Data Allergies/Adverse Reactions: No Known Allergies Allergy (Verified 06/25/17 09:14) Past Medical History - Social History Smoking Status: Never Smoker Cigarette use (# per day): No Chew tobacco use (# tins/day): No Smoking Education Provided: No Frequency of alcohol use: Social Drug Abuse: None Family History: Other - Patient states he does not know his family history he left home when he was 19 did not know it before then and never went back home now they're both he is an only child.. denies: CAD Patient has suicidal ideation: No Patient has homicidal ideation: No - Past Medical History Cardiac Medical History: Reports: Hx Hypercholesterolemia, Hx Hypertension Denies: Hx Atrial Fibrillation, Hx Congestive Heart Failure, Hx Coronary Artery Disease, Hx DVT, Hx Heart Attack, Hx Peripheral Vascular Disease, Hx Heart Murmur Endocrine Medical History: Reports: Hx Diabetes Mellitus Type 2. Denies: Hx Graves' Disease, Hx Hyperthyroidism, Hx Hypothyroidism Renal/ Medical History: Denies: Hx Peritoneal Dialysis Malignancy Medical History: Denies Hx Leukemia Musculoskeltal Medical History: Reports Hx Arthritis, Denies Hx Fibromyalgia, Denies Hx Muscular Dystrophy Traumatic Medical History: Denies: Hx Fractures Infectious Medical History: Denies: Hx HIV Past Surgical History: Reports: Hx Appendectomy, Hx Orthopedic Surgery - left hip replacement, Hx Tonsillectomy. Denies: Hx Bowel Surgery, Hx Cholecystectomy , Hx Coronary Artery Bypass Graft, Hx Gastric Bypass Surgery, Hx Herniorrhaphy, Hx Pacemaker - Immunizations Hx Diphtheria, Pertussis, Tetanus Vaccination: Yes Hx Pneumococcal Vaccination: 04/25/14 Review of Systems - Review of Systems Notes: REVIEW OF SYSTEMS: CONSTITUTIONAL : Denies fever, chills, or sweats. Denies recent illness. EENT: Denies eye, ear, throat, or mouth pain or symptoms. Denies nasal or sinus congestion or discharge. Denies throat, tongue, or mouth swelling or difficulty swallowing. CARDIOVASCULAR: Denies chest pain. Denies palpitations or racing or irregular heart beat. Denies ankle edema. RESPIRATORY: Denies cough, cold, or chest congestion. Denies shortness of breath, difficulty breathing, or wheezing. GASTROINTESTINAL: Denies abdominal pain or distention. Denies nausea, vomiting , or diarrhea. Denies blood in vomitus, stools, or per rectum. Denies black, tarry stools. Denies constipation. GENITOURINARY: Denies difficulty urinating, painful urination, burning, frequency, blood in urine, or discharge. MUSCULOSKELETAL: Left hip pain SKIN: Denies rash, lesions or sores. HEMATOLOGIC : Denies easy bruising or bleeding. LYMPHATIC: Denies swollen, enlarged glands. NEUROLOGICAL: Denies confusion or altered mental status. Denies passing out or loss of consciousness. Denies dizziness or lightheadedness. Denies headache. Denies weakness or paralysis or loss of use of either side. Denies problems with gait or speech. Denies sensory loss, numbness, or tingling. Denies seizures. PSYCHIATRIC: Denies anxiety or stress. Denies depression, suicidal ideation, or homicidal ideation. ALL OTHER SYSTEMS REVIEWED AND NEGATIVE. Dictation was performed using [employer] voice recognition software PHYSICAL EXAMINATION: GENERAL: Well-appearing, well-nourished and in no acute distress. HEAD: Atraumatic, normocephalic. EYES: Pupils equal round and reactive to light, extraocular movements intact, sclera anicteric, conjunctiva are normal. ENT: Nares patent, oropharynx clear without exudates. Moist mucous membranes. NECK: Normal range of motion, supple without lymphadenopathy LUNGS: Breath sounds clear to auscultation bilaterally and equal. No wheezes rales or rhonchi. HEART: Regular rate and rhythm without murmurs ABDOMEN: Soft, nontender, nondistended abdomen. No guarding, no rebound. No masses appreciated. Musculoskeletal: Left knee is bent laterally rotated NEUROLOGICAL: Cranial nerves grossly intact. Normal speech, normal gait. Normal sensory, motor exams PSYCH: Normal mood, normal affect. SKIN: Warm, Dry, normal turgor, no rashes or lesions noted. Physical Exam - Vital signs Vitals: Temp Pulse Resp BP Pulse Ox 97.4 F 71 18 202/128 H 95 06/25/17 09:00 06/25/17 09:00 06/25/17 09:00 06/25/17 09:00 06/25/17 09:00 Course - Re-evaluation Re-evalutation: 06/25/17 11:40 Patient was noted on upon arrival to have a hip dislocation, he was given propofol and after consent was obtained it was reduced with no difficulty Patient will be given follow-up with his own orthopedic physician After performing a Medical Screening Examination, I estimate there is LOW risk for INTRACRANIAL HEMORRHAGE, UNSTABLE SPINE FRACTURE, CENTRAL CORD SYNDROME, CAUDA EQUINA, THORACIC AORTIC DISSECTION, PNEUMOTHORAX, PERFORATED BOWEL, RUPTURED ABDOMINAL AORTIC ANEURYSM, ACUTE TENDON RUPTURE, COMPARTMENT SYNDROME, or OPEN FRACTURE, thus I consider the discharge disposition reasonable. Also, there is no evidence or peritonitis, sepsis, or toxicity. I have reevaluated this patient multiple times and no significant life threatening changes are noted. The patient and I have discussed the diagnosis and risks, and we agree with discharging home to follow-up with their primary doctor with the understanding that symptoms and presentations can change. We also discussed returning to the Emergency Department immediately if new or worsening symptoms occur. We have discussed the symptoms which are most concerning (e.g., bloody stool, fever, changing or worsening pain, vomiting) that necessitate immediate return. - Vital Signs Vital signs: Temp Pulse Resp BP Pulse Ox 97.4 F 64 15 163/72 H 92 06/25/17 09:00 06/25/17 10:35 06/25/17 10:47 06/25/17 10:47 06/25/17 10:47 - Diagnostic Test Radiology reviewed: Image reviewed, Reports reviewed Procedures - Conscious Sedation Conscious sedation Time started: 10:30 Time completed: 10:45 Consent obtained: Yes Indication: hip dislocation Prior complications: Procedural sedation ASA Classification: Choose one classification Pt with a mild systemic disease.: P2. - ASA Classification. Airway Evaluation: Normal anatomy Mallampati Classification: Class 2 Used during procedure: Suction available, IV access obtained, Pulse ox on pt., phlebotomy technician on pt. Medications administered: Diprivan Reversal agents: None I personally performed/intraservice time: Sedation, Procedure, 30 min or less Complications: No - Joint Reduction/Fracture Care Left Hip Time completed: 10:35 Consent obtained: Yes Conscious sedation: Yes Pre-procedure NV exam: Yes Fracture: Closed Post-procedure NV exam: Yes Post-reduction x-ray: Joint reduced, No fracture seen Reduction attempts: 1 Complications: No Discharge - Discharge Clinical Impression: Hip dislocation, left Qualifiers: Encounter type: initial encounter Qualified Code(s): S73.005A - Unspecified dislocation of left hip, initial encounter Condition: Stable Disposition: HOME, SELF-CARE Instructions: Dislocated Artificial Hip ([facility]) Prescriptions: Cyclobenzaprine HCl [Flexeril 10 mg Tablet] 10 mg PO TIDP PRN #15 tab PRN Reason: Referrals: RIAZ SIEGEL FNP [Primary Care Provider] - Follow up as needed TARAH MOHR MD [ACTIVE STAFF] - Follow up tomorrow
--- NOTE | 2017-06-25 09:40 | RADIOLOGY REPORT (SQ) ---
EXAM DESCRIPTION: HIP LEFT AP/LATERAL COMPLETED DATE/TIME: 06/25/2017 9:22 am REASON FOR STUDY: fall COMPARISON: None. NUMBER OF VIEWS: Two views. TECHNIQUE: AP pelvis and additional frog-leg view of the left hip. LIMITATIONS: Patient motion. FINDINGS: Anterior dislocation of left hip prosthesis. No fractures identified. IMPRESSION: Dislocated left hip prosthesis. TECHNICAL DOCUMENTATION: JOB ID: [id number] [employer]- All Rights Reserved Reading location - IP/workstation name: [email or web address]
--- NOTE | 2017-06-25 11:07 | RADIOLOGY REPORT (SQ) ---
EXAM DESCRIPTION: HIP LEFT AP/LATERAL COMPLETED DATE/TIME: 06/25/2017 10:53 am REASON FOR STUDY: hip dislocation/ er 7 COMPARISON: Earlier the same day. NUMBER OF VIEWS: Two views. TECHNIQUE: AP and frog-leg view of the left hip. LIMITATIONS: None. FINDINGS: Intact left hip arthroplasty. No fracture identified. IMPRESSION: Successful closed reduction. TECHNICAL DOCUMENTATION: JOB ID: [id number] [employer]- All Rights Reserved Reading location - IP/workstation name: [email or web address]
[2017-06-25] MEDS ORDERED: CYCLOBENZAPRINE HCL 10 MG TABLET PO ONE (11:23)
[2017-06-25 11:56] VITALS: BP 197/50
== END 2017-06-25 11:30 | disposition home or self-care (01) ==
LOC: ER 08:59
DX: M24.452 Recurrent dislocation, left hip (principal); Z96.642 Presence of left artificial hip joint; I10 Essential (primary) hypertension; E11.9 Type 2 diabetes mellitus without complications
CPT/HCPCS: 99284; 99152; 73502; 27265; A9270

== ENCOUNTER 2017-07-13 13:53 | Emergency (ER) | payer MEDICARE, OTHER ==
[2017-07-13] MEDS ORDERED: HYDROMORPHONE HCL INJ/PF 2 MG/ML AMPULE IV ONE ×2 (14:24→16:12)
[2017-07-13] MEDS ORDERED: ONDANSETRON HCL INJ/PF 4 MG/2 ML SDV IV ONE (14:24)
--- NOTE | 2017-07-13 14:52 | ER Document Report ---
ED Hip Pain/Injury <JOI PABLO - Last Filed: 07/13/17 21:07> - General Mode of Arrival: Medic Information source: Patient TRAVEL OUTSIDE OF THE [place] IN LAST 30 DAYS: No - HPI Patient complains to provider of: Hip Occurred: Just prior to arrival Where: Home Onset/Duration: Sudden Quality of pain: Dull Severity: Moderate Context: Other - WAS AMBULATING, TURNED & FELT A "POP" AND PAIN BEGAN Skin Color: Normal Skin Temperature: Warm Rotation of extremity: Inward Use of anticoagulant: No: Lovenox, Plavix, Pradexa, Warfarin Associated Symptoms: None <MADONNA BURCH - Last Filed: 07/14/17 00:25> - General Chief Complaint: Hip Pain Stated Complaint: LEFT HIP PAIN Time Seen by Provider: 07/13/17 14:51 - Related Data Allergies/Adverse Reactions: No Known Allergies Allergy (Verified 06/25/17 09:14) Past Medical History - General Information source: Patient - Social History Smoking Status: Unknown if Ever Smoked Cigarette use (# per day): No Chew tobacco use (# tins/day): No Frequency of alcohol use: None Drug Abuse: None Lives with: Alone Family History: None, Other - Patient states he does not know his family history he left home when he was 19 did not know it before then and never went back home now they're both he is an only child.. denies: CAD Patient has suicidal ideation: No Patient has homicidal ideation: No - Past Medical History Cardiac Medical History: Reports: Hx Hypercholesterolemia, Hx Hypertension Denies: Hx Atrial Fibrillation, Hx Congestive Heart Failure, Hx Coronary Artery Disease, Hx DVT, Hx Heart Attack, Hx Peripheral Vascular Disease, Hx Heart Murmur Pulmonary Medical History: Reports: None Neurological Medical History: Reports: None Endocrine Medical History: Reports: Hx Diabetes Mellitus Type 2. Denies: Hx Graves' Disease, Hx Hyperthyroidism, Hx Hypothyroidism Renal/ Medical History: Denies: Hx Peritoneal Dialysis Malignancy Medical History: Denies Hx Leukemia Musculoskeltal Medical History: Reports Hx Arthritis, Denies Hx Fibromyalgia, Denies Hx Muscular Dystrophy Traumatic Medical History: Denies: Hx Fractures Infectious Medical History: Denies: Hx HIV Past Surgical History: Reports: Hx Appendectomy, Hx Orthopedic Surgery - left hip replacement, Hx Tonsillectomy. Denies: Hx Bowel Surgery, Hx Cholecystectomy , Hx Coronary Artery Bypass Graft, Hx Gastric Bypass Surgery, Hx Herniorrhaphy, Hx Pacemaker - Immunizations Hx Diphtheria, Pertussis, Tetanus Vaccination: Yes Hx Pneumococcal Vaccination: 04/25/14 <MADONNA BURCH - Last Filed: 07/14/17 00:25> Review of Systems - Review of Systems Constitutional: No symptoms reported EENT: No symptoms reported Cardiovascular: No symptoms reported Respiratory: No symptoms reported Gastrointestinal: No symptoms reported Genitourinary: No symptoms reported Musculoskeletal: See HPI Skin: No symptoms reported Neurological/Psychological: No symptoms reported <MADONNA BURCH - Last Filed: 07/14/17 00:25> Physical Exam - Vital signs Interpretation: Hypertensive. No: Tachycardic, Tachypneic - General General appearance: Appears well, Alert In distress: None - HEENT Head: Normocephalic Eyes: Normal Conjunctiva: Normal Ears: Normal Nasal: Normal Mouth/Lips: Normal Mucous membranes: Normal - Respiratory Respiratory status: No respiratory distress Breath sounds: Normal - Cardiovascular Rhythm: Regular Heart sounds: Normal auscultation Murmur: No - Abdominal Inspection: Normal Distension: No distension - Extremities General upper extremity: Normal inspection General lower extremity: No: Normal inspection - L. L. E. SHORTENED, INT. ROTATED - Neurological Neuro grossly intact: Yes Cognition: Normal Orientation: AAOx4 - Psychological Associated symptoms: Normal affect, Normal mood - Skin Skin Temperature: Warm Skin Moisture: Dry Skin Color: Normal Skin Turgor: Elastic <MADONNA BURCH - Last Filed: 07/14/17 00:25> - Vital signs Vitals: Temp Pulse Resp BP Pulse Ox 97.7 F 98 20 178/86 H 98 07/13/17 14:05 07/13/17 14:05 07/13/17 14:05 07/13/17 14:05 07/13/17 14:05 - Vital Signs Vital signs: Temp Pulse Resp BP Pulse Ox 97.7 F 93 15 139/83 H 97 07/13/17 14:05 07/13/17 19:20 07/13/17 20:17 07/13/17 20:17 07/13/17 20:17 Procedures - Joint Reduction/Fracture Care Left Hip Time completed: 18:45 Consent obtained: Yes - Dr Burch Conscious sedation: Yes - dr Burch Pre-procedure NV exam: Yes Fracture: Closed Manipulation comment: [facility] Lift maneuver, Skoff maneuver Post-procedure NV exam: No Post-reduction x-ray: Joint reduced Reduction attempts: 2 Complications: No <JOI PABLO - Last Filed: 07/13/17 21:07> - Conscious Sedation Conscious sedation Time started: 18:43 Time completed: 18:55 Consent obtained: Yes Indication: REDUCTION OF DISLOCATED PROSTHETIC L. HIP Last meal: BEFORE NOON Prior complications: Procedural sedation Normal healthy pt.: P1. - ASA Classification Airway Evaluation: Normal anatomy Mallampati Classification: Class 2 Used during procedure: Suction available, IV access obtained, Pulse ox on pt., monitor technician on pt. Medications administered: Ketamine, Diprivan Reversal agents: None I personally performed/intraservice time: Sedation, Procedure, 30 min or less Complications: No <ALVAHUDSONMADONNA - Last Filed: 07/14/17 00:25> Discharge <SAMYJOI - Last Filed: 07/13/17 21:07> <ALVASABINECLAUDIOMADONNA - Last Filed: 07/14/17 00:25> - Discharge Clinical Impression: Dislocated hip Qualifiers: Encounter type: initial encounter Laterality: left Qualified Code(s): S73.005A - Unspecified dislocation of left hip, initial encounter Condition: Stable Disposition: HOME, SELF-CARE Additional Instructions: MINIMIZE MOVEMENT OF LEFT HIP. DO NOT FLEX HIP MORE THAN 90 DEGREES AT ANY TIME. DO NOT CROSS YOUR LEGS. CONTINUE YOUR USUAL MEDICATIONS. FOLLOW UP WITH DR. MOHR SCHEDULED, CALL OFFICE FOR EARLIER APPOINTMENT IF PROBLEMS. Referrals: TARAH MOHR MD [ACTIVE STAFF] - 07/28/17
--- NOTE | 2017-07-13 14:58 | RADIOLOGY REPORT (SQ) ---
EXAM DESCRIPTION: HIP LEFT AP/LATERAL COMPLETED DATE/TIME: 07/13/2017 2:47 pm REASON FOR STUDY: injury COMPARISON: None. NUMBER OF VIEWS: Two views. TECHNIQUE: AP and frog-leg view of the left hip. LIMITATIONS: None. FINDINGS: MINERALIZATION: Normal. LEFT HIP: There is dislocation of the left hip prosthesis. No definite associated fracture is identi fied. OPPOSITE HIP: No fracture or dislocation. No worrisome bone lesions. SOFT TISSUES: No findings. OTHER: No other significant finding. IMPRESSION: Dislocation of the left hip prosthesis. TECHNICAL DOCUMENTATION: JOB ID: [id number] [employer]- All Rights Reserved Reading location - IP/workstation name: [email or web address]
[2017-07-13] MEDS ORDERED: PROPOFOL INJ 200 MG/20 ML VIAL IV ONE (18:30)
[2017-07-13] MEDS ORDERED: KETAMINE HCL INJ 500 MG/10 ML VIAL IV ONE (18:30)
--- NOTE | 2017-07-13 19:48 | RADIOLOGY REPORT (SQ) ---
EXAM DESCRIPTION: PELVIS AP COMPLETED DATE/TIME: 07/13/2017 7:07 pm REASON FOR STUDY: POST-REDUCTION L. HIP COMPARISON: 07/13/2017 NUMBER OF VIEWS: One view TECHNIQUE: AP Pelvis LIMITATIONS: None. FINDINGS: MINERALIZATION: Normal. HIPS: The dislocation of the left prosthesis has been reduced. The alignment appears satisfactory. PELVIS AND SACRUM: No acute fracture or dislocation. No worrisome bone lesions. PUBIS AND ISCHIUM: No acute fracture. LOWER LUMBAR SPINE: No significant findings as visualized. SOFT TISSUES: No findings. OTHER: No other significant finding. IMPRESSION: Successful reduction of the left hip. TECHNICAL DOCUMENTATION: JOB ID: [id number] [employer]- All Rights Reserved Reading location - IP/workstation name: [email or web address]
[2017-07-13 20:46] VITALS: BP 139/83
== END 2017-07-13 20:44 | disposition home or self-care (01) ==
LOC: ER 13:53
DX: T84.021A Dislocation of internal left hip prosthesis, initial encounter (principal); Y79.2 Prosthetic and other implants, materials and accessory orthopedic devices associated with adverse incidents; Y92.009 Unspecified place in unspecified non-institutional (private) residence as the place of occurrence of the external cause; I10 Essential (primary) hypertension; E11.9 Type 2 diabetes mellitus without complications
CPT/HCPCS: 96376; 99284; 99152; 96374; 96375; 73502; 72170; 27265; J3490; J1170; J2405; J2704

== ENCOUNTER → 2017-08-01 | Outpatient (CLI) | payer MEDICARE, OTHER ==
--- NOTE | 2017-08-01 09:28 | RADIOLOGY REPORT (SQ) ---
EXAM DESCRIPTION: CHEST PA/LATERAL COMPLETED DATE/TIME: 08/01/2017 9:16 am REASON FOR STUDY: PRE OP COMPARISON: 12/13/2016, 09/24/2015 chest films EXAM PARAMETERS: NUMBER OF VIEWS: two views TECHNIQUE: Digital Frontal and Lateral radiographic views of the chest acquired. RADIATION DOSE: NA LIMITATIONS: none FINDINGS: LUNGS AND PLEURA: No opacities, masses or pneumothorax. No pleural effusion. MEDIASTINUM AND HILAR STRUCTURES: No masses or contour abnormalities. HEART AND VASCULAR STRUCTURES: Heart normal size. No evidence for failure. BONES: Diffuse thoracic bridging osteophytes. HARDWARE: None in the chest. OTHER: No other significant finding. IMPRESSION: NO SIGNIFICANT RADIOGRAPHIC FINDING IN THE CHEST. TECHNICAL DOCUMENTATION: JOB ID: [id number] [employer]- All Rights Reserved Reading location - IP/workstation name: [email or web address]
[2017-08-01 09:52] LABS: ABSOLUTE BASOPHILS # (AUTO) 0.1 10^3/uL (0.0-0.2); ABSOLUTE EOSINOPHILS # (AUTO) 0.3 10^3/uL (0.0-0.6); ABSOLUTE LYMPHOCYTES (AUTO) 1.2 10^3/uL (0.5-4.7); ABSOLUTE MONOCYTES (AUTO) 0.5 10^3/uL (0.1-1.4); BASOPHILS % (AUTO) 0.9 % (0-2); EOSINOPHILS % (AUTO) 4.3 % (0-6); HEMATOCRIT 42.3 % (37.9-51.0); HEMOGLOBIN 14.2 g/dL (13.5-17.0); LYMPHOCYTES % (AUTO) 20.1 % (13-45); MEAN CORPUSCULAR HEMOGLOBIN 30.2 pg (27.0-33.4); MEAN CORPUSCULAR HGB CONC 33.7 g/dL (32.0-36.0); MEAN CORPUSCULAR VOLUME 90 fl (80-97); MONOCYTES % (AUTO) 8.4 % (3-13); PLATELET COUNT 246 10^3/uL (150-450); RED BLOOD COUNT 4.72 10^6/uL (4.35-5.55); RED CELL DISTRIBUTION WIDTH 15.2 % (11.5-14.0); SEGMENTED NEUTROPHILS % (AUTO) 66.3 % (42-78); TOTAL CELLS COUNTED % (AUTO) 100 %
[2017-08-01 10:12] LABS: ANION GAP 11 (5-19); BLOOD UREA NITROGEN 15 mg/dL (7-20); CARBON DIOXIDE 31 mmol/L (22-30); CHLORIDE 100 mmol/L (98-107); GLUCOSE 117 mg/dL (75-110); SODIUM 142.1 mmol/L (137-145)
[2017-08-01 10:13] LABS: APPEARANCE,URINE SLIGHTLY-CLOUDY; BILIRUBIN,URINE NEGATIVE (NEGATIVE); COLOR,URINE YELLOW; GLUCOSE, URINE NEGATIVE (NEGATIVE); KETONES,URINE NEGATIVE (NEGATIVE); LEUKOCYTE ESTERASE,URINE NEGATIVE (NEGATIVE); NITRITE,URINE NEGATIVE (NEGATIVE); PROTEIN,URINE 30 mg/dL (NEGATIVE); URINE SPECIFIC GRAVITY 1.016; UROBILINOGEN,URINE NEGATIVE mg/dL (<2.0)
--- NOTE | 2017-08-01 13:35 | EKG REPORT ---
SEVERITY:- ABNORMAL ECG - SINUS RHYTHM MULTIPLE PREMATURE COMPLEXES, VENT . RIGHT BUNDLE BRANCH BLOCK : Confirmed by: Reji Coelho MD 01-Aug-2017 13:35:00
== END ==
LOC: OD 08:31
PROVIDERS: ATTEND Orthopaedic Surgery
DX: Z01.810 Encounter for preprocedural cardiovascular examination (principal); Z01.812 Encounter for preprocedural laboratory examination; Z01.818 Encounter for other preprocedural examination
CPT/HCPCS: 36415; 71046; 80048; 81001; 85025; 93005; 93010

== ENCOUNTER 2017-08-29 06:26 | Inpatient (IN) | payer MEDICARE, OTHER ==
[~2017-08-29 06:26] MED LIST changes: +BUPIVACAINE INJ/PF LIPOSOME/PF 266 MG/20 ML SDV IJ PRN; -BUPIVACAINE INJ/PF LIPOSOME/PF 266 MG/20 ML SDV INJ PRN; +DEXAMETHASONE SOD PHOSPHATE INJ 4 MG/1 ML VIAL ONE; +FENTANYL CITRATE INJ/PF 100 MCG/2 ML AMPUL ONE; -IBUPROFEN 800 MG in NORMAL SALINE 250 ML IV PRN; +IBUPROFEN 800 MG/NS 250 ML IV PRN; +LACTATED RINGERS 1000 ML IV PRN; +LANSOPRAZOLE 15 MG TAB.RAP.DR PO PRN; +LIDOCAINE 0.5% INJ-PF (5 MG/ML) 50 ML SDV SUBCUT PRN; +LIDOCAINE 2% INJ-PF (20 MG/ML) 10 ML AMPUL ONE; +MIDAZOLAM 2 MG/2 ML INJ ONE; +ONDANSETRON HCL INJ/PF 4 MG/2 ML SDV ONE; +OXYCODONE HCL SR 10 MG TABLET PO PRN; +PROPOFOL INJ 200 MG/20 ML VIAL IV ONE; -RINGERS SOLUTION,LACTATED 1,000 ML IV PRN; +TETRACAINE HCL/PF 20MG/2ML AMPULE (SPINAL) ONE; +VANCOMYCIN HCL 1,000 MG in DEXTROSE 5%-WATER 250 ML IV PRN
[2017-08-29] MEDS ORDERED: KETAMINE HCL INJ 500 MG/10 ML VIAL ONE (06:36)
[2017-08-29] MEDS ORDERED: LIDOCAINE 2% INJ-PF (20 MG/ML) 10 ML AMPUL ONE (06:44)
[2017-08-29] MEDS ORDERED: METOPROLOL SUCCINATE 50 MG TAB.SR.24H PO PRN ×2 (06:56→07:07)
[2017-08-29] MEDS ORDERED: THROMBIN (BOVINE) TOPICAL 20000 UNIT VIAL ONE (07:13)
[2017-08-29] MEDS ORDERED: BUPIVACAINE INJ/PF LIPOSOME/PF 266 MG/20 ML SDV ONE (07:13)
[2017-08-29] MEDS ORDERED: THROMBIN (BOVINE) 5000 UNIT EPITAXIS KIT ONE (07:13)
[2017-08-29 07:35] LABS: POTASSIUM 4.1 mmol/L (3.6-5.0)
--- NOTE | 2017-08-29 07:37 | EKG REPORT ---
SEVERITY:- ABNORMAL ECG - SINUS RHYTHM PAC, NON-CONDUCTED,THEN ATRIAL ESCAPE BEAT. PROBABLE LEFT ATRIAL ABNORMALITY RIGHT BUNDLE BRANCH BLOCK : Confirmed by: Reji Coelho MD 29-Aug-2017 07:36:34
[2017-08-29] MEDS ORDERED: EPHEDRINE SULFATE INJ 50 MG/1 ML AMPULE ONE (08:29)
[2017-08-29] MEDS ORDERED: MEPERIDINE HCL/PF INJ 25 MG/1 ML DISP.SYRIN IV PRN (09:26)
[2017-08-29] MEDS ORDERED: ONDANSETRON HCL INJ/PF 4 MG/2 ML SDV IV PRN ×3 (09:26→13:30)
[2017-08-29] MEDS ORDERED: DIPHENHYDRAMINE HCL 50 MG/ML VIAL IV PRN ×2 (09:26→09:52)
[2017-08-29] MEDS ORDERED: FENTANYL CITRATE INJ/PF 100 MCG/2 ML AMPUL IV PRN ×3 (09:26)
[2017-08-29] MEDS ORDERED: PROMETHAZINE HCL INJ 25 MG/1 ML VIAL IV PRN ×2 (09:26)
[2017-08-29] MEDS ORDERED: MORPHINE SULFATE 10 MG/ML INJ IV PRN ×4 (09:26→09:52)
[2017-08-29] MEDS ORDERED: MORPHINE SULFATE 10 MG/ML INJ IM PRN (09:52)
[2017-08-29] MEDS ORDERED: MAG HYDROX/AL HYDROX/SIMETH SUSP 30 ML UDCUP PO PRN (09:52)
[2017-08-29] MEDS ORDERED: ONDANSETRON 4 MG TAB.RAPDIS PO PRN ×2 (09:52→13:30)
[2017-08-29] MEDS ORDERED: RINGERS SOLUTION,LACTATED 1,000 ML IV PRN (09:52)
[2017-08-29] MEDS ORDERED: ZOLPIDEM TARTRATE 5 MG TABLET PO PRN (09:52)
[2017-08-29] MEDS ORDERED: (PENDING PHARMACY ID) (Sitagliptin Phos/Metformin Hcl [Janumet 50-1,000 Mg Tablet] 1 TAB) PO SCH (10:00)
[2017-08-29] MEDS ORDERED: CETIRIZINE HCL PO SCH (10:00)
--- NOTE | 2017-08-29 10:01 | Operative Report ---
Operative Report DATE OF SURGERY: 08/29/17 PREOPERATIVE DIAGNOSIS: Unstable left hip arthroplasty OPERATION: Revision left hip arthroplasty. Sciatic neural lysis SURGEON: TARAH MOHR ANESTHESIA: Spinal TISSUE REMOVED OR ALTERED: Cultures 2 to microbiology. Implants to CSS ESTIMATED BLOOD LOSS: 100 PROCEDURE: With the patient in a right lateral decubitus position on the operating table the left lower extremities manipulated to determine the position of instability. I was able to flex the hip to 90 abducted to approximately 45 and internally rotated to 80 and still unable to dislocate the hip. Likewise the lower extremity was flexed externally rotated and abducted and there was no anterior instability. Pictures are taken of the leg in both positions to document stability. The decision was made to proceed with a revision hip arthroplasty presumably for posterior instability. The leg is prepped and draped in a sterile fashion. A curvilinear incision made over the greater trochanter in line with the previous surgical approach. Upon transecting the iliotibial band it is clear that the soft tissue defect around the implant is straight posterior suggesting that that was the direction of instability in the past. Patient has had 3 documented dislocations. Cultures are taken. Sciatic nerve was then identified coming out of the sciatic notch and traced distally to the gluteal sling. Is protected throughout the case. The hip was then dislocated and the femoral head disimpacted. The underlying acetabular liner was removed leaving the locking ring in place. The wound is irrigated. The existing hip replacement is a [employer] product. The plan is to proceed with a head and liner exchange to increase stability both by increasing head size and by increasing offset and by adding a posterior high wall. A 40 mm size 24 with a 3 mm offset and a high wall is impacted with the elevated portion of the rim beginning at approximately 11:00 and extending posteriorly to about 5:00. It is impacted in position and is stable. Subsequently a 40 mm chrome cobalt head +6 neck extension is impacted onto the trunnion and hip is reduced. Stability is in again assessed. Pictures are taken of the leg abducted flexed and internally rotated with no evidence of any instability. The wound is kamini irrigated and closed in layers with interrupted Vicryl followed by dionisio. Sterile compressive dressing and hip abduction pillow were applied and patient's return to the PACU in satisfactory condition.
[2017-08-29] MEDS ORDERED: DEXTROSE 40% GEL 15 GM TUBE PO PRN (10:54)
[2017-08-29] MEDS ORDERED: DEXTROSE 40% GEL 15 GM TUBE X 2 PO PRN (10:54)
[2017-08-29] MEDS ORDERED: DEXTROSE 50%-WATER SYRINGE 25 GM/50 ML DOSE IV PRN (10:54)
[2017-08-29] MEDS ORDERED: DEXTROSE 50%-WATER SYRINGE 12.5 GM/25 ML DOSE IV PRN (10:54)
[2017-08-29] MEDS ORDERED: GLUCAGON,HUMAN RECOMB 1 MG INJ IM PRN (10:54)
[2017-08-29] MEDS ORDERED: INSULIN LISPRO 100 UNIT/ML 3 ML VIAL SUBCUT PRN (10:54)
[2017-08-29] MEDS ORDERED: CETIRIZINE 10 MG TABLET PO ONE (12:00)
[2017-08-29] MEDS ORDERED: TRANEXAMIC ACID INJ/PF 1,000 MG/10 ML SDV IV ONE (12:00)
[2017-08-29] MEDS ORDERED: LISINOPRIL 10 MG TABLET PO ONE (12:00)
[2017-08-29] MEDS: THIAMINE HCL 100 MG TABLET PO SCH (12:35)
[2017-08-29] MEDS: OXYCODONE HCL SR 10 MG TABLET PO SCH ×2 (12:35→22:50)
[2017-08-29] MEDS: METOPROLOL SUCCINATE 50 MG TAB.SR.24H PO SCH (12:36)
[2017-08-29] MEDS: ASPIRIN 81 MG TABLET, ENT COATED PO SCH (12:36)
[2017-08-29] MEDS: SENNOSIDES/DOCUSATE 8.6-50 MG 1 EACH TABLET PO SCH ×2 (12:37→18:06)
[2017-08-29] MEDS: PRENATAL VITAMIN W DHA CAPSULE PO SCH (12:37)
[2017-08-29] MEDS: HYDROCHLOROTHIAZIDE 12.5 MG CAPSULE PO SCH (12:37)
[2017-08-29] MEDS: FOLIC ACID 1 MG TABLET PO SCH (12:37)
[2017-08-29] MEDS ORDERED: PHENYLEPHRINE HCL INJ/PF 10 MG/1 ML SDV ONE (12:37)
[2017-08-29] MEDS: GABAPENTIN 300 MG CAPSULE PO SCH ×2 (14:58→22:50)
[2017-08-29] MEDS: IBUPROFEN 800 MG in NORMAL SALINE 250 ML IV SCH (18:04)
[2017-08-29] MEDS: METFORMIN HCL 500 MG TABLET PO SCH (18:05)
[2017-08-29] MEDS: SITAGLIPTIN PHOSPHATE 50 MG TABLET PO SCH (18:06)
[2017-08-29] MEDS ORDERED: VANCOMYCIN HCL 1,000 MG in DEXTROSE 5%-WATER 250 ML IV ONE (22:00)
[2017-08-29] MEDS: ATORVASTATIN CALCIUM 20 MG TABLET PO SCH (22:50)
[2017-08-30] MEDS: IBUPROFEN 800 MG in NORMAL SALINE 250 ML IV SCH ×3 (01:49→18:23)
[2017-08-30] MEDS: LANSOPRAZOLE 30 MG TAB.RAP.DR PO SCH (06:02)
[2017-08-30] MEDS: GABAPENTIN 300 MG CAPSULE PO SCH ×3 (06:06→22:22)
[2017-08-30 06:21] LABS: HEMATOCRIT 33.9 % (37.9-51.0); HEMOGLOBIN 11.4 g/dL (13.5-17.0); MEAN CORPUSCULAR HEMOGLOBIN 30.1 pg (27.0-33.4); MEAN CORPUSCULAR HGB CONC 33.5 g/dL (32.0-36.0); MEAN CORPUSCULAR VOLUME 90 fl (80-97); PLATELET COUNT 244 10^3/uL (150-450); RED BLOOD COUNT 3.77 10^6/uL (4.35-5.55); WHITE BLOOD COUNT 10.5 10^3/uL (4.0-10.5)
[2017-08-30 06:40] LABS: ANION GAP 10 (5-19); BLOOD UREA NITROGEN 13 mg/dL (7-20); CARBON DIOXIDE 28 mmol/L (22-30); CHLORIDE 101 mmol/L (98-107); GLUCOSE 101 mg/dL (75-110); POTASSIUM 4.2 mmol/L (3.6-5.0)
--- NOTE | 2017-08-30 06:51 | PDOC PROGRESS REPORT ---
Subjective Progress Note for:: 08/30/17 Reason For Visit: UNSTABLE RIGHT HIP ARTHROPLASTY 71-year-old white now with left prosthetic hip instability. Patient admitted for elective revision arthroplasty. Physical Exam Vital Signs: Temp Pulse Resp BP Pulse Ox 36.9 C 71 20 130/69 H 99 08/29/17 23:17 08/29/17 23:17 08/29/17 23:17 08/29/17 23:17 08/30/17 00:18 Intake & Output 08/28/17 08/29/17 08/30/17 06:59 06:59 06:59 Intake Total 3790 Output Total 3740 Balance 50 Weight 113.6 kg General appearance: PRESENT: no acute distress, obese Respiratory exam: PRESENT: unlabored Cardiovascular exam: PRESENT: RRR Pulses: PRESENT: +1 pedal pulses bilateral Vascular exam: PRESENT: normal capillary refill GI/Abdominal exam: PRESENT: soft Rectal exam: PRESENT: deferred Extremities exam: PRESENT: other - Left hip dressing clean dry and intact. Leg lengths are equal. Distal neurovascular examination is intact. Neurological exam: PRESENT: alert, awake, oriented to person, oriented to place , oriented to time, oriented to situation. ABSENT: motor sensory deficit Psychiatric exam: PRESENT: other - Questionable confused Skin exam: PRESENT: dry, intact, warm. ABSENT: cyanosis, rash Results Laboratory Results: 08/30/17 05:17 08/30/17 05:17 08/29/17 08/29/17 08/30/17 07:03 07:03 05:17 WBC 10.5 RBC 3.77 L Hgb 11.4 L Hct 33.9 L MCV 90 MCH 30.1 MCHC 33.5 RDW 14.0 Plt Count 244 Sodium Potassium 4.1 Chloride Carbon Dioxide Anion Gap BUN Creatinine Est GFR ( Amer) Est GFR (Non-Af Amer) Glucose 105 Calcium Blood Type B POSITIVE Antibody Screen NEGATIVE 08/30/17 05:17 WBC RBC Hgb Hct MCV MCH MCHC RDW Plt Count Sodium 139.0 Potassium 4.2 Chloride 101 Carbon Dioxide 28 Anion Gap 10 BUN 13 Creatinine 0.83 Est GFR ( Amer) > 60 Est GFR (Non-Af Amer) > 60 Glucose 101 Calcium 9.0 Blood Type Antibody Screen Status: Imported from PACS Assessment & Plan - Diagnosis (1) Other mechanical complication of internal left hip prosthesis Is this a current diagnosis for this admission?: Yes Plan: 71-year-old status post left hip revision arthroplasty. Plan for mobilization with physical therapy and weightbearing as tolerated basis. Strict posterior hip precautions to be adhered to. - Time Time Spent with patient: 15-24 minutes Anticipated discharge: Home with Homehealth Within: within 24 hours
[2017-08-30] MEDS: METFORMIN HCL 500 MG TABLET PO SCH ×2 (10:18→18:23)
[2017-08-30] MEDS: SITAGLIPTIN PHOSPHATE 50 MG TABLET PO SCH ×2 (10:18→18:23)
[2017-08-30] MEDS: HYDROCHLOROTHIAZIDE 12.5 MG CAPSULE PO SCH (10:19)
[2017-08-30] MEDS: LISINOPRIL 10 MG TABLET PO SCH (10:19)
[2017-08-30] MEDS: SENNOSIDES/DOCUSATE 8.6-50 MG 1 EACH TABLET PO SCH ×2 (10:19→18:23)
[2017-08-30] MEDS: FOLIC ACID 1 MG TABLET PO SCH (10:19)
[2017-08-30] MEDS: PRENATAL VITAMIN W DHA CAPSULE PO SCH (10:19)
[2017-08-30] MEDS: THIAMINE HCL 100 MG TABLET PO SCH (10:19)
[2017-08-30] MEDS: METOPROLOL SUCCINATE 50 MG TAB.SR.24H PO SCH (10:19)
[2017-08-30] MEDS: CETIRIZINE 10 MG TABLET PO SCH (10:19)
[2017-08-30] MEDS: OXYCODONE HCL SR 10 MG TABLET PO SCH ×2 (10:19→22:22)
[2017-08-30] MEDS: ASPIRIN 81 MG TABLET, ENT COATED PO SCH (10:19)
--- NOTE | 2017-08-30 15:21 | RADIOLOGY REPORT (SQ) ---
EXAM DESCRIPTION: PELVIS AP COMPLETED DATE/TIME: 08/29/2017 10:40 am REASON FOR STUDY: Post Op Long Cassette in PACU COMPARISON: None. EXAM PARAMETERS: NUMBER OF VIEWS: One view TECHNIQUE: AP pelvis LIMITATIONS: In FINDINGS: An AP postoperative image shows the pelvis to be intact. There is a left hip arthroplasty in good position. The tip of the femoral component is not included in the [id number]. Skin stap les are present over the hip. IMPRESSION: Postoperative image. TECHNICAL DOCUMENTATION: JOB ID: [id number] [employer]- All Rights Reserved Reading location - IP/workstation name: [email or web address]
[2017-08-30] MEDS: ATORVASTATIN CALCIUM 20 MG TABLET PO SCH (22:22)
[2017-08-31] MEDS: IBUPROFEN 800 MG in NORMAL SALINE 250 ML IV SCH ×2 (01:16→09:51)
[2017-08-31] MEDS: LANSOPRAZOLE 30 MG TAB.RAP.DR PO SCH (06:11)
[2017-08-31] MEDS: GABAPENTIN 300 MG CAPSULE PO SCH ×3 (06:11→21:59)
[2017-08-31 07:04] LABS: HEMATOCRIT 32.8 % (37.9-51.0); MEAN CORPUSCULAR HEMOGLOBIN 30.1 pg (27.0-33.4); MEAN CORPUSCULAR HGB CONC 33.4 g/dL (32.0-36.0); MEAN CORPUSCULAR VOLUME 90 fl (80-97); PLATELET COUNT 237 10^3/uL (150-450); RED BLOOD COUNT 3.65 10^6/uL (4.35-5.55); RED CELL DISTRIBUTION WIDTH 14.1 % (11.5-14.0); WHITE BLOOD COUNT 10.4 10^3/uL (4.0-10.5)
[2017-08-31] MEDS: METFORMIN HCL 500 MG TABLET PO SCH ×2 (08:02→18:06)
[2017-08-31] MEDS: OXYCODONE HCL IR 5 MG TABLET PO PRN ×2 (08:05→21:59)
[2017-08-31] MEDS: SITAGLIPTIN PHOSPHATE 50 MG TABLET PO SCH ×2 (08:05→18:06)
[2017-08-31] MEDS: FOLIC ACID 1 MG TABLET PO SCH (09:49)
[2017-08-31] MEDS: PRENATAL VITAMIN W DHA CAPSULE PO SCH (09:49)
[2017-08-31] MEDS: SENNOSIDES/DOCUSATE 8.6-50 MG 1 EACH TABLET PO SCH ×2 (09:49→18:06)
[2017-08-31] MEDS: ASPIRIN 81 MG TABLET, ENT COATED PO SCH (09:49)
[2017-08-31] MEDS: CETIRIZINE 10 MG TABLET PO SCH (09:50)
[2017-08-31] MEDS: HYDROCHLOROTHIAZIDE 12.5 MG CAPSULE PO SCH (09:50)
[2017-08-31] MEDS: THIAMINE HCL 100 MG TABLET PO SCH (09:50)
[2017-08-31] MEDS: LISINOPRIL 10 MG TABLET PO SCH (09:50)
[2017-08-31] MEDS: METOPROLOL SUCCINATE 50 MG TAB.SR.24H PO SCH (09:50)
[2017-08-31] MEDS: ATORVASTATIN CALCIUM 20 MG TABLET PO SCH (21:59)
[2017-08-31] MEDS: ACETAMINOPHEN 325 MG TABLET PO PRN (23:40)
[2017-09-01] MEDS: GABAPENTIN 300 MG CAPSULE PO SCH ×3 (05:49→21:39)
[2017-09-01] MEDS: LANSOPRAZOLE 30 MG TAB.RAP.DR PO SCH (05:49)
[2017-09-01 06:44] LABS: HEMATOCRIT 34.5 % (37.9-51.0); HEMOGLOBIN 11.3 g/dL (13.5-17.0); MEAN CORPUSCULAR HEMOGLOBIN 29.5 pg (27.0-33.4); MEAN CORPUSCULAR HGB CONC 32.8 g/dL (32.0-36.0); MEAN CORPUSCULAR VOLUME 90 fl (80-97); PLATELET COUNT 235 10^3/uL (150-450); RED BLOOD COUNT 3.84 10^6/uL (4.35-5.55); RED CELL DISTRIBUTION WIDTH 14.2 % (11.5-14.0); WHITE BLOOD COUNT 12.5 10^3/uL (4.0-10.5)
--- NOTE | 2017-09-01 07:20 | PDOC PROGRESS REPORT ---
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 Patient's confusion is limiting his progress with physical therapy. Physical Exam Vital Signs: Temp Pulse Resp BP Pulse Ox 39.1 C H 99 20 159/77 H 93 09/01/17 00:00 09/01/17 00:00 09/01/17 00:00 09/01/17 00:00 09/01/17 00:00 Intake & Output 08/30/17 08/31/17 09/01/17 06:59 06:59 06:59 Intake Total 3790 1680 1187 Output Total 3740 1570 1275 Balance 50 110 -88 Weight 113.6 kg 111.6 kg 109.2 kg General appearance: PRESENT: no acute distress Head exam: PRESENT: normocephalic Respiratory exam: PRESENT: unlabored Cardiovascular exam: PRESENT: RRR Pulses: PRESENT: +1 pedal pulses bilateral Vascular exam: PRESENT: normal capillary refill GI/Abdominal exam: PRESENT: soft Rectal exam: PRESENT: deferred Extremities exam: PRESENT: other - Left hip dressing with a small amount of old drainage. Leg lengths are equal. Distal neurovascular examination is intact. Neurological exam: PRESENT: other - Confusion Skin exam: PRESENT: dry, intact, warm. ABSENT: cyanosis, rash Results Laboratory Results: 08/30/17 05:17 08/31/17 06:25 WBC 10.4 RBC 3.65 L Hgb 11.0 L Hct 32.8 L MCV 90 MCH 30.1 MCHC 33.4 RDW 14.1 H Plt Count 237 Impressions: Pelvis X-Ray 08/29/17 09:54 IMPRESSION: Postoperative image. Status: Imported from PACS Assessment & Plan - Diagnosis (1) Other mechanical complication of internal left hip prosthesis Is this a current diagnosis for this admission?: Yes Plan: Patient making limited progress with physical therapy secondary mental status changes will seem to be at baseline level. This is probably in some way related to his prosthetic instability as well. I think the patient be best served with halfway facility placement. Orders been placed for social work to begin to explore this. - Time Time Spent with patient: 15-24 minutes Anticipated discharge: SNF Within: when bed available
[2017-09-01] MEDS: SITAGLIPTIN PHOSPHATE 50 MG TABLET PO SCH ×2 (08:04→17:42)
[2017-09-01] MEDS: METFORMIN HCL 500 MG TABLET PO SCH ×2 (08:04→17:42)
[2017-09-01] MEDS: METOPROLOL SUCCINATE 50 MG TAB.SR.24H PO SCH (09:19)
[2017-09-01] MEDS: SENNOSIDES/DOCUSATE 8.6-50 MG 1 EACH TABLET PO SCH ×2 (09:19→17:42)
[2017-09-01] MEDS: THIAMINE HCL 100 MG TABLET PO SCH (09:20)
[2017-09-01] MEDS: HYDROCHLOROTHIAZIDE 12.5 MG CAPSULE PO SCH (09:20)
[2017-09-01] MEDS: PRENATAL VITAMIN W DHA CAPSULE PO SCH (09:21)
[2017-09-01] MEDS: ASPIRIN 81 MG TABLET, ENT COATED PO SCH (09:21)
[2017-09-01] MEDS: LISINOPRIL 10 MG TABLET PO SCH (09:21)
[2017-09-01] MEDS: CETIRIZINE 10 MG TABLET PO SCH (09:21)
[2017-09-01] MEDS: FOLIC ACID 1 MG TABLET PO SCH (09:21)
[2017-09-01] MEDS: ACETAMINOPHEN 325 MG TABLET PO PRN (15:26)
[2017-09-01] MEDS: ATORVASTATIN CALCIUM 20 MG TABLET PO SCH (21:39)
[2017-09-02] MEDS: LANSOPRAZOLE 30 MG TAB.RAP.DR PO SCH (06:07)
[2017-09-02] MEDS: GABAPENTIN 300 MG CAPSULE PO SCH ×3 (06:07→22:15)
--- NOTE | 2017-09-02 06:44 | PDOC PROGRESS REPORT ---
Subjective Progress Note for:: 09/02/17 Reason For Visit: UNSTABLE RIGHT HIP ARTHROPLASTY 71-year-old white male postop day 4 from left hip revision arthroplasty. Confusion continues. Limited progress with physical therapy. Physical Exam Vital Signs: Temp Pulse Resp BP Pulse Ox 37.3 C 98 17 167/67 H 95 09/01/17 23:32 09/01/17 23:32 09/01/17 23:32 09/01/17 23:32 09/01/17 23:32 Intake & Output 08/31/17 09/01/17 09/02/17 06:59 06:59 06:59 Intake Total 1680 1187 625 Output Total 1570 1275 1175 Balance 110 -88 -550 Weight 111.6 kg 109.2 kg 107.7 kg General appearance: PRESENT: no acute distress Head exam: PRESENT: normocephalic Respiratory exam: PRESENT: unlabored Cardiovascular exam: PRESENT: RRR Pulses: PRESENT: +1 pedal pulses bilateral Vascular exam: PRESENT: normal capillary refill GI/Abdominal exam: PRESENT: soft Rectal exam: PRESENT: deferred Extremities exam: PRESENT: other - Right hip dressing with a small amount of old drainage. Leg lengths are equal. Distal neurovascular examination is intact. Neurological exam: PRESENT: alert, awake, other - Confused Skin exam: PRESENT: dry, intact, warm. ABSENT: cyanosis, rash Results Laboratory Results: 09/01/17 05:47 08/30/17 05:17 09/01/17 05:47 WBC 12.5 H RBC 3.84 L Hgb 11.3 L Hct 34.5 L MCV 90 MCH 29.5 MCHC 32.8 RDW 14.2 H Plt Count 235 Impressions: Pelvis X-Ray 08/29/17 09:54 IMPRESSION: Postoperative image. Status: Imported from PACS Assessment & Plan - Diagnosis (1) Other mechanical complication of internal left hip prosthesis Is this a current diagnosis for this admission?: Yes Plan: 71-year-old white male status post revision left hip arthroplasty for prosthetic instability. Confusion is now limiting the patient's progress with physical therapy. I have been informed that this is the patient's baseline mental status. shelter facility placement is pending. - Time Time Spent with patient: 15-24 minutes Anticipated discharge: SNF Within: when bed available
[2017-09-02] MEDS: LISINOPRIL 10 MG TABLET PO SCH (09:32)
[2017-09-02] MEDS: THIAMINE HCL 100 MG TABLET PO SCH (09:32)
[2017-09-02] MEDS: PRENATAL VITAMIN W DHA CAPSULE PO SCH (09:33)
[2017-09-02] MEDS: METFORMIN HCL 500 MG TABLET PO SCH ×2 (09:33→17:41)
[2017-09-02] MEDS: FOLIC ACID 1 MG TABLET PO SCH (09:33)
[2017-09-02] MEDS: SITAGLIPTIN PHOSPHATE 50 MG TABLET PO SCH ×2 (09:33→17:41)
[2017-09-02] MEDS: SENNOSIDES/DOCUSATE 8.6-50 MG 1 EACH TABLET PO SCH ×2 (09:33→17:41)
[2017-09-02] MEDS: HYDROCHLOROTHIAZIDE 12.5 MG CAPSULE PO SCH (09:33)
[2017-09-02] MEDS: ASPIRIN 81 MG TABLET, ENT COATED PO SCH (09:33)
[2017-09-02] MEDS: CETIRIZINE 10 MG TABLET PO SCH (09:34)
[2017-09-02] MEDS: METOPROLOL SUCCINATE 50 MG TAB.SR.24H PO SCH (09:34)
[2017-09-02] MEDS ORDERED: RINGERS SOLUTION,LACTATED 1,000 ML IV PRN (14:12)
[2017-09-02 15:03] LABS: HEMOGLOBIN 11.6 g/dL (13.5-17.0); MEAN CORPUSCULAR HEMOGLOBIN 29.9 pg (27.0-33.4); MEAN CORPUSCULAR HGB CONC 34.2 g/dL (32.0-36.0); MEAN CORPUSCULAR VOLUME 87 fl (80-97); PLATELET COUNT 275 10^3/uL (150-450); WHITE BLOOD COUNT 15.4 10^3/uL (4.0-10.5)
[2017-09-02 15:30] LABS: ALANINE AMINOTRANSFERASE 60 U/L (21-72); ALBUMIN 3.3 g/dL (3.5-5.0); ALKALINE PHOSPHATASE 90 U/L (38-126); ANION GAP 12 (5-19); ASPARTATE AMINO TRANSFERASE 89 U/L (17-59); BILIRUBIN,DIRECT 0.5 mg/dL (0.0-0.4); BILIRUBIN,TOTAL 0.8 mg/dL (0.2-1.3); BLOOD UREA NITROGEN 17 mg/dL (7-20); CALCIUM 9.4 mg/dL (8.4-10.2); CARBON DIOXIDE 30 mmol/L (22-30); CHLORIDE 96 mmol/L (98-107); GLUCOSE 137 mg/dL (75-110); SODIUM 138.2 mmol/L (137-145); TOTAL PROTEIN 6.4 g/dL (6.3-8.2)
[2017-09-02 15:49] LABS: ABSOLUTE LYMPHOCYTES# (MANUAL) 0.2 10^3/uL (0.5-4.7); ABSOLUTE MONOCYTES # (MANUAL) 1.4 10^3/uL (0.1-1.4); ABSOLUTE NEUTROPHILS# (MANUAL) 13.9 10^3/uL (1.7-8.2); BASOPHILS % (MANUAL) 0 % (0-2); EOSINOPHILS % (MANUAL) 0 % (0-6); LYMPHOCYTES % (MANUAL) 1 % (13-45); MONOCYTES % (MANUAL) 9 % (3-13); SEGMENTED NEUTROPHILS % (MAN) 90 % (42-78); TOTAL CELLS COUNTED 100
[2017-09-02 15:50] LABS: ANISOCYTOSIS SLIGHT; TOXIC GRANULATION 1+; TOXIC VACUOLATION PRESENT
[2017-09-02 15:51] LABS: PLATELET COMMENT ADEQUATE
[2017-09-02] MEDS ORDERED: CEFTRIAXONE 1 GM/D5W RTU 1 GM/50 ML RTUPB IV SCH (16:00)
[2017-09-02 16:12] LABS: APPEARANCE,URINE SLIGHTLY-CLOUDY; BILIRUBIN,URINE NEGATIVE (NEGATIVE); COLOR,URINE YELLOW; GLUCOSE, URINE NEGATIVE (NEGATIVE); KETONES,URINE TRACE mg/dL (NEGATIVE); LEUKOCYTE ESTERASE,URINE NEGATIVE (NEGATIVE); NITRITE,URINE NEGATIVE (NEGATIVE); PROTEIN,URINE 100 mg/dL (NEGATIVE)
--- NOTE | 2017-09-02 16:12 | PDOC CONSULTATION ---
Consultation Consult Date: 09/02/17 Attending physician:: TARAH MOHR Consult reason:: fever 4 days post op History of Present Illness Admission Date/PCP: 08/29/17 06:26 HUGO MORTON Patient complains of: Fever post op History of Present Illness: DAVID SANTANA is a 71 year old male Patient is status post revision of left hip arthroplasty and sciatic neural lysis done on August 29. Hospitalist consultation saw today as patient was found to be febrile. There has been no nausea vomiting dysuria frequency abdominal pain cough and no evidence of infection from incision site. Patient is confused but this is apparently his baseline and this was confirmed by his spouse. There is no diarrhea or difficulty breathing. His white count was noted to be elevated today in addition to the fever. Past Medical History Cardiac Medical History: Reports: Hyperlipidema, Hypertension Denies: Atrial Fibrillation, Congestive Heart Failure, Coronary Artery Disease, DVT, Myocardial Infarction, Peripheral Vascular Disease, Heart Murmur Endocrine Medical History: Reports: Diabetes Mellitus Type 2 Denies: Hyperthyroidism, Hypothyroidism Malignancy Medical History: Musculoskeltal Medical History: Reports: Arthritis Denies: Fibromyalgia Psychiatric Medical History: Reports: None Traumatic Medical History: Reports: None Hematology: Infectious Medical History: Past Surgical History Past Surgical History: Reports: Appendectomy, Orthopedic Surgery - left hip replacement, Tonsillectomy Denies: Cholecystectomy, Coronary Artery Bypass Graft, Gastric Bypass Surgery , Herniorrhaphy, Pacemaker Social History Smoking Status: Never Smoker Hx Recreational Drug Use: No Hx Prescription Drug Abuse: No - Advance Directive Resuscitation Status: Full Code - She was antagonistic Family History Family History: None, Other - Patient states he does not know his family history he left home when he was 19 did not know it before then and never went back home now they're both he is an only child.. denies: CAD Parental Family History Reviewed: No Children Family History Reviewed: Unknown Sibling(s) Family History Reviewed.: Unknown Medication/Allergy Home Medications: Aspirin [Ecotrin 81 mg EC Tablet] 81 mg PO DAILY 01/10/17 Atorvastatin Calcium [Lipitor 20 mg Tablet] 20 mg PO QHS 01/10/17 Celecoxib [Celebrex 200 mg Capsule] 200 mg PO DAILY 01/10/17 Gabapentin [Neurontin 300 mg Capsule] 300 mg PO Q8 01/10/17 Hydrochlorothiazide [Hydrodiuril 12.5 mg Capsule] 12.5 mg PO DAILY 01/10/17 Lisinopril [Prinivil 40 mg Tablet] 40 mg PO DAILY 01/10/17 Metoprolol Succinate [Toprol Xl 50 mg Tab.sr] 50 mg PO DAILY 01/10/17 Sitagliptin Phos/Metformin HCl [Janumet 50-1,000 mg Tablet] 1 tab PO BID Cetirizine HCl [Zyrtec] 10 mg PO DAILYP PRN 08/22/17 Folic Acid 1 mg PO DAILY 08/22/17 Thiamine HCl 100 mg PO DAILY 08/22/17 Cyclobenzaprine HCl [Flexeril 10 mg Tablet] 10 mg PO Q8HP PRN 08/29/17 Allergies/Adverse Reactions: No Known Allergies Allergy (Verified 08/15/17 11:12) Review of Systems ROS unobtainable: Due to mental status Physical Exam Vital Signs: Temp Pulse Resp BP Pulse Ox 101.7 F H 102 H 16 149/73 H 97 09/02/17 12:25 09/02/17 12:25 09/02/17 12:25 09/02/17 12:25 09/02/17 12:25 Intake & Output 09/01/17 09/02/17 09/03/17 06:59 06:59 06:59 Intake Total 1187 625 Output Total 1275 1175 Balance -88 -550 Weight 109.2 kg 107.7 kg General appearance: PRESENT: no acute distress, obese Head exam: PRESENT: atraumatic Eye exam: PRESENT: conjunctiva pink, EOMI, PERRLA. ABSENT: scleral icterus Mouth exam: PRESENT: moist, tongue midline Neck exam: ABSENT: carotid bruit, JVD, lymphadenopathy, thyromegaly Respiratory exam: PRESENT: clear to auscultation luis. ABSENT: rales, rhonchi, wheezes Cardiovascular exam: PRESENT: RRR. ABSENT: diastolic murmur, rubs, systolic murmur GI/Abdominal exam: PRESENT: normal bowel sounds, soft. ABSENT: distended, guarding, mass, organolmegaly, rebound, tenderness Rectal exam: PRESENT: deferred Extremities exam: PRESENT: full ROM. ABSENT: calf tenderness, clubbing, pedal edema Neurological exam: PRESENT: alert, awake, other - confused Psychiatric exam: PRESENT: appropriate affect Results Laboratory Results: 09/02/17 14:41 09/02/17 14:41 09/02/17 09/02/17 14:41 14:41 WBC 15.4 H RBC 3.90 L Hgb 11.6 L Hct 34.0 L MCV 87 MCH 29.9 MCHC 34.2 RDW 14.0 Plt Count 275 Seg Neutrophils % Not Reportable Lymphocytes % Not Reportable Monocytes % Not Reportable Eosinophils % Not Reportable Basophils % Not Reportable Absolute Neutrophils Not Reportable Absolute Lymphocytes Not Reportable Absolute Monocytes Not Reportable Absolute Eosinophils Not Reportable Absolute Basophils Not Reportable Sodium 138.2 Potassium 4.0 Chloride 96 L Carbon Dioxide 30 Anion Gap 12 BUN 17 Creatinine 0.67 Est GFR ( Amer) > 60 Est GFR (Non-Af Amer) > 60 Glucose 137 H Calcium 9.4 Total Bilirubin 0.8 AST 89 H ALT 60 Alkaline Phosphatase 90 Total Protein 6.4 Albumin 3.3 L 08/29/17 09:16 Hip - Joint Gram Stain - Final 08/29/17 09:16 Hip - Joint Wound Culture - Final NO AEROBIC OR ANAEROBIC ORGANISMS RECOVERED 08/29/17 09:16 Hip - Joint Gram Stain - Final 08/29/17 09:16 Hip - Joint Wound Culture - Final NO AEROBIC OR ANAEROBIC ORGANISMS RECOVERED Impressions: Pelvis X-Ray 08/29/17 09:54 IMPRESSION: Postoperative image. Assessment & Plan - Diagnosis (1) Postoperative fever Is this a current diagnosis for this admission?: Yes Plan: Precise etiology is unclear at this time as patient has a paucity of symptoms. Will obtain a routine chest x-ray as he may just be having atelectasis although he does have a white count. Will place him on empiric antibiotics and follow- up with culture results (2) Other mechanical complication of internal left hip prosthesis Is this a current diagnosis for this admission?: Yes Plan: He is 4 days status post revision (3) Hypertension Qualifiers: Hypertension type: essential hypertension Qualified Code(s): I10 - Essential (primary) hypertension Is this a current diagnosis for this admission?: Yes - Time Time Spent: 30 to 50 Minutes Medications reviewed and adjusted accordingly: Yes Anticipated discharge: Home with Homehealth Within: within 72 hours - Inpatient Certification Based on my medical assessment, after consideration of the patient's comorbidities, presenting symptoms, or acuity I expect that the services needed warrant INPATIENT care.: Yes Medical Necessity: Need for IV Antibiotics
--- NOTE | 2017-09-02 17:46 | RADIOLOGY REPORT (SQ) ---
EXAM DESCRIPTION: CHEST SINGLE VIEW COMPLETED DATE/TIME: 09/02/2017 5:36 pm REASON FOR STUDY: Post op fever COMPARISON: 08/01/2017 EXAM PARAMETERS: NUMBER OF VIEWS: One view. TECHNIQUE: Single frontal radiographic view of the chest acquired. RADIATION DOSE: NA LIMITATIONS: None. FINDINGS: LUNGS AND PLEURA: No opacities, masses or pneumothorax. No pleural effusion. MEDIASTINUM AND HILAR STRUCTURES: No masses. Contour normal. HEART AND VASCULAR STRUCTURES: Heart normal in size. Normal vasculature. BONES: No acute findings. HARDWARE: None in the chest. OTHER: No other significant finding. IMPRESSION: NO ACUTE RADIOGRAPHIC FINDING IN THE CHEST. TECHNICAL DOCUMENTATION: JOB ID: [id number] [employer]- All Rights Reserved Reading location - IP/workstation name: [email or web address]
[2017-09-02] MEDS: CEFTRIAXONE SODIUM 1,000 MG in DEXTROSE 5%-WATER 50 ML IV SCH (18:50)
[2017-09-02] MEDS: ATORVASTATIN CALCIUM 20 MG TABLET PO SCH (22:15)
[2017-09-03] MEDS: GABAPENTIN 300 MG CAPSULE PO SCH ×3 (06:14→21:54)
[2017-09-03] MEDS: LANSOPRAZOLE 30 MG TAB.RAP.DR PO SCH (06:14)
[2017-09-03 06:18] LABS: HEMATOCRIT 32.4 % (37.9-51.0); HEMOGLOBIN 10.7 g/dL (13.5-17.0); MEAN CORPUSCULAR HEMOGLOBIN 29.4 pg (27.0-33.4); MEAN CORPUSCULAR VOLUME 89 fl (80-97); PLATELET COUNT 263 10^3/uL (150-450); RED BLOOD COUNT 3.63 10^6/uL (4.35-5.55); WHITE BLOOD COUNT 13.2 10^3/uL (4.0-10.5)
[2017-09-03] MEDS: SITAGLIPTIN PHOSPHATE 50 MG TABLET PO SCH ×2 (08:24→17:37)
[2017-09-03] MEDS: METFORMIN HCL 500 MG TABLET PO SCH ×2 (08:24→17:36)
[2017-09-03] MEDS: HYDROCHLOROTHIAZIDE 12.5 MG CAPSULE PO SCH (10:38)
[2017-09-03] MEDS: PRENATAL VITAMIN W DHA CAPSULE PO SCH (10:38)
[2017-09-03] MEDS: LISINOPRIL 10 MG TABLET PO SCH (10:39)
[2017-09-03] MEDS: THIAMINE HCL 100 MG TABLET PO SCH (10:39)
[2017-09-03] MEDS: METOPROLOL SUCCINATE 50 MG TAB.SR.24H PO SCH (10:39)
[2017-09-03] MEDS: FOLIC ACID 1 MG TABLET PO SCH (10:39)
[2017-09-03] MEDS: CETIRIZINE 10 MG TABLET PO SCH (10:39)
[2017-09-03] MEDS: ASPIRIN 81 MG TABLET, ENT COATED PO SCH (10:39)
[2017-09-03] MEDS: SENNOSIDES/DOCUSATE 8.6-50 MG 1 EACH TABLET PO SCH ×2 (10:39→17:37)
--- NOTE | 2017-09-03 15:39 | PDOC PROGRESS REPORT ---
Subjective Progress Note for:: 09/03/17 Subjective:: Hospitalist service consulted due to postoperative fever. Patient is confused and really unable to give a concise history but he does seem better today Reason For Visit: UNSTABLE RIGHT HIP ARTHROPLASTY Physical Exam Vital Signs: Temp Pulse Resp BP Pulse Ox 99.1 F 115 H 20 156/73 H 93 09/03/17 11:24 09/03/17 11:24 09/03/17 11:24 09/03/17 11:24 09/03/17 11:24 Intake & Output 09/02/17 09/03/17 09/04/17 06:59 06:59 06:59 Intake Total 625 2037 300 Output Total 1175 1325 400 Balance -550 712 -100 Weight 107.7 kg 108.8 kg General appearance: PRESENT: no acute distress, obese, well-developed, well- nourished Head exam: PRESENT: atraumatic, normocephalic Eye exam: PRESENT: conjunctiva pink, PERRLA. ABSENT: scleral icterus Mouth exam: PRESENT: moist, tongue midline Neck exam: ABSENT: carotid bruit, JVD, lymphadenopathy, thyromegaly Respiratory exam: PRESENT: clear to auscultation luis. ABSENT: rales, rhonchi, wheezes Cardiovascular exam: PRESENT: RRR. ABSENT: diastolic murmur, rubs, systolic murmur Pulses: PRESENT: normal dorsalis pedis pul Vascular exam: PRESENT: normal capillary refill GI/Abdominal exam: PRESENT: normal bowel sounds, soft. ABSENT: distended, guarding, mass, organolmegaly, rebound, tenderness Rectal exam: PRESENT: deferred Extremities exam: PRESENT: other - Left hip incision site intact. ABSENT: calf tenderness, clubbing, pedal edema Neurological exam: PRESENT: alert, awake, other - confused. ABSENT: motor sensory deficit Psychiatric exam: PRESENT: appropriate affect, normal mood. ABSENT: homicidal ideation, suicidal ideation Skin exam: PRESENT: dry, intact, warm. ABSENT: cyanosis, rash Results Laboratory Results: 09/03/17 05:55 09/02/17 14:41 09/02/17 09/03/17 15:05 05:55 WBC 13.2 H RBC 3.63 L Hgb 10.7 L Hct 32.4 L MCV 89 MCH 29.4 MCHC 33.0 RDW 14.0 Plt Count 263 Urine Color YELLOW Urine Appearance SLIGHTLY-CLOUDY Urine pH 5.0 Ur Specific Jones 1.020 Urine Protein 100 H Urine Glucose (UA) NEGATIVE Urine Ketones TRACE H Urine Blood SMALL H Urine Nitrite NEGATIVE Ur Leukocyte Esterase NEGATIVE Urine WBC (Auto) 3 Urine RBC (Auto) 2 Impressions: Pelvis X-Ray 08/29/17 09:54 IMPRESSION: Postoperative image. Chest X-Ray 09/02/17 00:00 IMPRESSION: NO ACUTE RADIOGRAPHIC FINDING IN THE CHEST. Assessment & Plan - Diagnosis (1) Postoperative fever Is this a current diagnosis for this admission?: Yes Plan: Precise etiology still unclear. Alvarado cultures are currently negative and chest x -ray is also negative. We will continue empiric antibiotic and de-escalate as appropriate (2) Other mechanical complication of internal left hip prosthesis Is this a current diagnosis for this admission?: Yes Plan: Further management as per orthopedics (3) Hypertension Qualifiers: Hypertension type: essential hypertension Qualified Code(s): I10 - Essential (primary) hypertension Is this a current diagnosis for this admission?: Yes Plan: Controlled - Time Time Spent with patient: 15-24 minutes Medications reviewed and adjusted accordingly: Yes Anticipated discharge: Acute Rehab - Inpatient Certification Based on my medical assessment, after consideration of the patient's comorbidities, presenting symptoms, or acuity I expect that the services needed warrant INPATIENT care.: Yes Medical Necessity: Need for IV Antibiotics
--- NOTE | 2017-09-03 17:06 | PDOC PROGRESS REPORT ---
Subjective Progress Note for:: 09/03/17 Reason For Visit: UNSTABLE RIGHT HIP ARTHROPLASTY 71-year-old white male status post left hip revision arthroplasty now with confusion, intermittent febrile episodes, and elevated white count. All cultures are negative. Physical Exam Vital Signs: Temp Pulse Resp BP Pulse Ox 37.3 C 104 H 16 166/73 H 94 09/03/17 15:51 09/03/17 15:51 09/03/17 15:51 09/03/17 15:51 09/03/17 15:51 Intake & Output 09/02/17 09/03/17 09/04/17 06:59 06:59 06:59 Intake Total 625 2037 300 Output Total 1175 1325 400 Balance -550 712 -100 Weight 107.7 kg 108.8 kg General appearance: PRESENT: no acute distress Head exam: PRESENT: normocephalic Respiratory exam: PRESENT: unlabored Cardiovascular exam: PRESENT: RRR Pulses: PRESENT: +1 pedal pulses bilateral GI/Abdominal exam: PRESENT: soft Rectal exam: PRESENT: deferred Extremities exam: PRESENT: other - Left hip dressing is clean dry and intact. Leg lengths are equal. Distal neurovascular examination is intact. Neurological exam: PRESENT: alert, other - Confused Skin exam: PRESENT: dry, intact, warm. ABSENT: cyanosis, rash Results Laboratory Results: 09/03/17 05:55 09/02/17 14:41 09/03/17 05:55 WBC 13.2 H RBC 3.63 L Hgb 10.7 L Hct 32.4 L MCV 89 MCH 29.4 MCHC 33.0 RDW 14.0 Plt Count 263 Impressions: Pelvis X-Ray 08/29/17 09:54 IMPRESSION: Postoperative image. Chest X-Ray 09/02/17 00:00 IMPRESSION: NO ACUTE RADIOGRAPHIC FINDING IN THE CHEST. Status: Imported from PACS Assessment & Plan - Diagnosis (1) Other mechanical complication of internal left hip prosthesis Is this a current diagnosis for this admission?: Yes Plan: Patient's can fusion continues. He is now afebrile. Empiric antibiotics started. Chest x-ray negative. UA negative. Wound is clean dry and intact. - Time Time Spent with patient: 15-24 minutes Anticipated discharge: SNF Within: Other
[2017-09-03] MEDS: CEFTRIAXONE SODIUM 1,000 MG in DEXTROSE 5%-WATER 50 ML IV SCH (17:38)
[2017-09-03] MEDS: ATORVASTATIN CALCIUM 20 MG TABLET PO SCH (21:54)
[2017-09-04] MEDS: LANSOPRAZOLE 30 MG TAB.RAP.DR PO SCH (06:37)
[2017-09-04] MEDS: GABAPENTIN 300 MG CAPSULE PO SCH ×3 (06:37→21:34)
--- NOTE | 2017-09-04 06:41 | PDOC PROGRESS REPORT ---
Subjective Progress Note for:: 09/04/17 Reason For Visit: UNSTABLE RIGHT HIP ARTHROPLASTY 72-year-old white male status post left hip revision arthroplasty now with mental confusion which limits progress with physical therapy. Significant events in last 24 hours included T-max of 38.3, heart rate of 111, white blood cell count has decreased to 13.2. Blood glucose is running between 112 and 134 Physical Exam Vital Signs: Temp Pulse Resp BP Pulse Ox 36.9 C 100 20 145/75 H 96 09/03/17 23:21 09/03/17 23:21 09/03/17 23:21 09/03/17 23:21 09/03/17 23:21 Intake & Output 09/02/17 09/03/17 09/04/17 06:59 06:59 06:59 Intake Total 625 2037 1270 Output Total 1175 1325 600 Balance -550 712 670 Weight 107.7 kg 108.8 kg General appearance: PRESENT: no acute distress Head exam: PRESENT: normocephalic Respiratory exam: PRESENT: unlabored Cardiovascular exam: PRESENT: tachycardia Pulses: PRESENT: +1 pedal pulses bilateral GI/Abdominal exam: PRESENT: soft Rectal exam: PRESENT: deferred Extremities exam: PRESENT: other - Right hip dressing clean dry and intact. Leg lengths are equal. Distal neurovascular examination is intact. Results Laboratory Results: 09/03/17 05:55 09/02/17 14:41 Impressions: Pelvis X-Ray 08/29/17 09:54 IMPRESSION: Postoperative image. Chest X-Ray 09/02/17 00:00 IMPRESSION: NO ACUTE RADIOGRAPHIC FINDING IN THE CHEST. Status: Imported from PACS Assessment & Plan - Diagnosis (1) Other mechanical complication of internal left hip prosthesis Is this a current diagnosis for this admission?: Yes Plan: Patient continues to have febrile episodes as well as a mild leukocytosis and tachycardia. Source of potential infection has not been identified. Clinical examination would make wound infection a low probability. Urinalysis and chest x-ray did not point to an obvious source. Patient currently on empiric antibiotics. - Time Time Spent with patient: 15-24 minutes Anticipated discharge: SNF Within: Other
[2017-09-04] MEDS: METFORMIN HCL 500 MG TABLET PO SCH ×2 (08:53→17:51)
[2017-09-04] MEDS: SITAGLIPTIN PHOSPHATE 50 MG TABLET PO SCH ×2 (08:54→17:51)
[2017-09-04] MEDS: LISINOPRIL 10 MG TABLET PO SCH (09:37)
[2017-09-04] MEDS: CETIRIZINE 10 MG TABLET PO SCH (09:37)
[2017-09-04] MEDS: PRENATAL VITAMIN W DHA CAPSULE PO SCH (09:37)
[2017-09-04] MEDS: THIAMINE HCL 100 MG TABLET PO SCH (09:37)
[2017-09-04] MEDS: ASPIRIN 81 MG TABLET, ENT COATED PO SCH (09:37)
[2017-09-04] MEDS: HYDROCHLOROTHIAZIDE 12.5 MG CAPSULE PO SCH (09:37)
[2017-09-04] MEDS: SENNOSIDES/DOCUSATE 8.6-50 MG 1 EACH TABLET PO SCH ×2 (09:37→17:51)
[2017-09-04] MEDS: FOLIC ACID 1 MG TABLET PO SCH (09:37)
[2017-09-04] MEDS: METOPROLOL SUCCINATE 50 MG TAB.SR.24H PO SCH (09:38)
--- NOTE | 2017-09-04 16:23 | PDOC PROGRESS REPORT ---
Subjective Progress Note for:: 09/04/17 Subjective:: Hospitalist service consulted due to postoperative fever. Patient is pleasantly confused and really unable to give a concise history but he does seem better today. He is able to tell me today's his birthday which is correct. He was noted to have a skin tear on his buttocks but this was felt to be due to him laying in bed. It is not infected. The source of his fever still unclear however this could be postop. He has been on empiric antibiotics for the last 3 days and I suggest discontinuing this at discharge if his white count is also improved. Patient has remained afebrile although his white count is still elevated. Reason For Visit: UNSTABLE RIGHT HIP ARTHROPLASTY Physical Exam Vital Signs: Temp Pulse Resp BP Pulse Ox 98.4 F 63 18 151/66 H 97 09/04/17 16:00 09/04/17 16:00 09/04/17 16:00 09/04/17 16:00 09/04/17 16:00 Intake & Output 09/03/17 09/04/17 09/05/17 06:59 06:59 06:59 Intake Total 2037 1390 Output Total 1325 900 Balance 712 490 Weight 108.8 kg 104.8 kg General appearance: PRESENT: no acute distress, well-developed, well-nourished Head exam: PRESENT: atraumatic Eye exam: PRESENT: conjunctiva pink, PERRLA. ABSENT: scleral icterus Mouth exam: PRESENT: moist, tongue midline Neck exam: ABSENT: carotid bruit, JVD, lymphadenopathy, thyromegaly Respiratory exam: PRESENT: clear to auscultation luis. ABSENT: rales, rhonchi, wheezes Cardiovascular exam: PRESENT: RRR. ABSENT: diastolic murmur, rubs, systolic murmur Vascular exam: PRESENT: normal capillary refill GI/Abdominal exam: PRESENT: normal bowel sounds, soft. ABSENT: distended, guarding, mass, organolmegaly, rebound, tenderness Rectal exam: PRESENT: deferred Extremities exam: PRESENT: full ROM. ABSENT: calf tenderness, clubbing, pedal edema Neurological exam: PRESENT: alert, awake, oriented to place, oriented to situation. ABSENT: motor sensory deficit Psychiatric exam: PRESENT: appropriate affect, normal mood. ABSENT: homicidal ideation, suicidal ideation Skin exam: PRESENT: dry, skin tears - Left upper gluteal area Incision on the left thigh is clean, warm. ABSENT: cyanosis, rash Results Laboratory Results: 09/03/17 05:55 09/02/17 14:41 09/02/17 15:05 Clean Catch Midstream Urine Culture - Final NO GROWTH 2 DAYS Impressions: Pelvis X-Ray 08/29/17 09:54 IMPRESSION: Postoperative image. Chest X-Ray 09/02/17 00:00 IMPRESSION: NO ACUTE RADIOGRAPHIC FINDING IN THE CHEST. Assessment & Plan - Diagnosis (1) Postoperative fever Is this a current diagnosis for this admission?: Yes Plan: Precise etiology still unclear. Alvarado cultures are currently negative and chest x -ray is also negative. Continue empiric antibiotic and de-escalate as appropriate (2) Other mechanical complication of internal left hip prosthesis Is this a current diagnosis for this admission?: Yes Plan: Further management as per orthopedics (3) Hypertension Qualifiers: Hypertension type: essential hypertension Qualified Code(s): I10 - Essential (primary) hypertension Is this a current diagnosis for this admission?: Yes Plan: Controlled (4) Dementia Is this a current diagnosis for this admission?: Yes - Time Time Spent with patient: 15-24 minutes Medications reviewed and adjusted accordingly: Yes Anticipated discharge: Acute Rehab Within: within 48 hours - Inpatient Certification Based on my medical assessment, after consideration of the patient's comorbidities, presenting symptoms, or acuity I expect that the services needed warrant INPATIENT care.: Yes Medical Necessity: Need Close Monitoring Due to Risk of Patient Decompensation, Risk of Complication if Not Cared For in Hospital
[2017-09-04] MEDS: CEFTRIAXONE SODIUM 1,000 MG in DEXTROSE 5%-WATER 50 ML IV SCH (17:52)
[2017-09-04] MEDS: ATORVASTATIN CALCIUM 20 MG TABLET PO SCH (21:34)
[2017-09-05] MEDS: LANSOPRAZOLE 30 MG TAB.RAP.DR PO SCH (05:42)
[2017-09-05] MEDS: GABAPENTIN 300 MG CAPSULE PO SCH ×3 (05:42→21:54)
[2017-09-05 07:16] LABS: ABSOLUTE BASOPHILS # (AUTO) 0.1 10^3/uL (0.0-0.2); ABSOLUTE EOSINOPHILS # (AUTO) 0.3 10^3/uL (0.0-0.6); ABSOLUTE LYMPHOCYTES (AUTO) 0.9 10^3/uL (0.5-4.7); ABSOLUTE MONOCYTES (AUTO) 1.3 10^3/uL (0.1-1.4); ABSOLUTE NEUT (AUTO) 10.5 10^3/uL (1.7-8.2); BASOPHILS % (AUTO) 0.4 % (0-2); EOSINOPHILS % (AUTO) 2.6 % (0-6); HEMATOCRIT 32.3 % (37.9-51.0); HEMOGLOBIN 10.7 g/dL (13.5-17.0); LYMPHOCYTES % (AUTO) 7.1 % (13-45); MEAN CORPUSCULAR HEMOGLOBIN 29.6 pg (27.0-33.4); MEAN CORPUSCULAR HGB CONC 33.1 g/dL (32.0-36.0); MEAN CORPUSCULAR VOLUME 90 fl (80-97); PLATELET COUNT 353 10^3/uL (150-450); RED BLOOD COUNT 3.61 10^6/uL (4.35-5.55); RED CELL DISTRIBUTION WIDTH 14.4 % (11.5-14.0); SEGMENTED NEUTROPHILS % (AUTO) 79.9 % (42-78); TOTAL CELLS COUNTED % (AUTO) 100 %; WHITE BLOOD COUNT 13.1 10^3/uL (4.0-10.5)
[2017-09-05 07:26] LABS: ANION GAP 13 (5-19); BLOOD UREA NITROGEN 15 mg/dL (7-20); CARBON DIOXIDE 32 mmol/L (22-30); CHLORIDE 96 mmol/L (98-107); GLUCOSE 131 mg/dL (75-110); POTASSIUM 3.8 mmol/L (3.6-5.0)
[2017-09-05] MEDS: SITAGLIPTIN PHOSPHATE 50 MG TABLET PO SCH ×2 (09:01→17:30)
[2017-09-05] MEDS: METFORMIN HCL 500 MG TABLET PO SCH ×2 (09:01→17:31)
[2017-09-05] MEDS: ASPIRIN 81 MG TABLET, ENT COATED PO SCH (09:01)
[2017-09-05] MEDS: CETIRIZINE 10 MG TABLET PO SCH (09:02)
[2017-09-05] MEDS: HYDROCHLOROTHIAZIDE 12.5 MG CAPSULE PO SCH (09:02)
[2017-09-05] MEDS: FOLIC ACID 1 MG TABLET PO SCH (09:02)
[2017-09-05] MEDS: LISINOPRIL 10 MG TABLET PO SCH (09:03)
[2017-09-05] MEDS: PRENATAL VITAMIN W DHA CAPSULE PO SCH (09:03)
[2017-09-05] MEDS: METOPROLOL SUCCINATE 50 MG TAB.SR.24H PO SCH (09:03)
[2017-09-05] MEDS: SENNOSIDES/DOCUSATE 8.6-50 MG 1 EACH TABLET PO SCH ×2 (09:03→17:31)
[2017-09-05] MEDS: THIAMINE HCL 100 MG TABLET PO SCH (09:04)
[2017-09-05] MEDS: ACETAMINOPHEN 325 MG TABLET PO PRN (09:04)
--- NOTE | 2017-09-05 15:31 | PDOC PROGRESS REPORT ---
Subjective Progress Note for:: 09/05/17 Subjective:: Patient seen resting in bed. He denies any chest pain, shortness of breath or dyspnea at rest. He denies any cough. He is disoriented to time and place. He denies any nausea, vomiting or abdominal pain. He is having passed some mild pain in left hip relieved with analgesics. Remaining review of systems are negative. Reason For Visit: UNSTABLE RIGHT HIP ARTHROPLASTY Physical Exam Vital Signs: Temp Pulse Resp BP Pulse Ox 98.3 F 51 L 16 116/54 L 93 09/05/17 11:08 09/05/17 11:08 09/05/17 11:08 09/05/17 11:08 09/05/17 11:08 Intake & Output 09/04/17 09/05/17 09/06/17 06:59 06:59 06:59 Intake Total 1390 1550 Output Total 900 Balance 490 1550 Weight 104.8 kg 115.6 kg General appearance: PRESENT: no acute distress, well-developed, well-nourished Head exam: PRESENT: atraumatic, normocephalic Eye exam: PRESENT: conjunctiva pink, EOMI, PERRLA. ABSENT: scleral icterus Ear exam: PRESENT: normal external ear exam Mouth exam: PRESENT: moist, tongue midline Neck exam: ABSENT: carotid bruit, JVD, lymphadenopathy, thyromegaly Respiratory exam: PRESENT: clear to auscultation luis, symmetrical, unlabored. ABSENT: rales, rhonchi, wheezes Cardiovascular exam: PRESENT: RRR. ABSENT: diastolic murmur, rubs, systolic murmur Pulses: PRESENT: normal dorsalis pedis pul Vascular exam: PRESENT: normal capillary refill GI/Abdominal exam: PRESENT: normal bowel sounds, soft. ABSENT: distended, guarding, mass, organolmegaly, rebound, tenderness Rectal exam: PRESENT: deferred Extremities exam: PRESENT: full ROM. ABSENT: calf tenderness, clubbing, pedal edema Musculoskeletal exam: PRESENT: ambulatory, tenderness, other - left lower extremity Neurological exam: PRESENT: alert, awake, oriented to person, CN II-XII grossly intact. ABSENT: motor sensory deficit Psychiatric exam: PRESENT: appropriate affect, normal mood. ABSENT: homicidal ideation, suicidal ideation Skin exam: PRESENT: dry, intact, warm. ABSENT: cyanosis, rash Results Laboratory Results: 09/05/17 06:40 09/05/17 06:40 09/05/17 09/05/17 06:40 06:40 WBC 13.1 H RBC 3.61 L Hgb 10.7 L Hct 32.3 L MCV 90 MCH 29.6 MCHC 33.1 RDW 14.4 H Plt Count 353 Seg Neutrophils % 79.9 H Lymphocytes % 7.1 L Monocytes % 10.0 Eosinophils % 2.6 Basophils % 0.4 Absolute Neutrophils 10.5 H Absolute Lymphocytes 0.9 Absolute Monocytes 1.3 Absolute Eosinophils 0.3 Absolute Basophils 0.1 Sodium 141.0 Potassium 3.8 Chloride 96 L Carbon Dioxide 32 H Anion Gap 13 BUN 15 Creatinine 0.80 Est GFR ( Amer) > 60 Est GFR (Non-Af Amer) > 60 Glucose 131 H Calcium 9.0 Impressions: Pelvis X-Ray 08/29/17 09:54 IMPRESSION: Postoperative image. Chest X-Ray 09/02/17 00:00 IMPRESSION: NO ACUTE RADIOGRAPHIC FINDING IN THE CHEST. Assessment & Plan - Diagnosis (1) Postoperative fever Is this a current diagnosis for this admission?: Yes Plan: Most likely secondary to atelectasis. There is no signs of acute infection. Chest x-ray shows no pneumonia. Leukocytosis improving (2) Hypertension Qualifiers: Hypertension type: essential hypertension Qualified Code(s): I10 - Essential (primary) hypertension Is this a current diagnosis for this admission?: Yes Plan: Continue current medications he is normotensive (3) Other mechanical complication of internal left hip prosthesis Is this a current diagnosis for this admission?: Yes Plan: Management per orthopedic surgery (4) Dementia Qualifiers: Dementia type: vascular dementia Dementia behavioral disturbance: without behavioral disturbance Qualified Code(s): F01.50 - Vascular dementia without behavioral disturbance Is this a current diagnosis for this admission?: Yes - Time Time Spent with patient: 25-34 minutes Total Critical Time (Minutes): 15 Medications reviewed and adjusted accordingly: Yes Anticipated discharge: Home - Her
[2017-09-05] MEDS: CEFTRIAXONE SODIUM 1,000 MG in DEXTROSE 5%-WATER 50 ML IV SCH (17:31)
--- NOTE | 2017-09-05 20:08 | RADIOLOGY REPORT (SQ) ---
EXAM DESCRIPTION: ELBOW RIGHT AP/LAT COMPLETED DATE/TIME: 09/05/2017 7:33 pm REASON FOR STUDY: pain. redness, swelling right elbow Z96.642 PRESENCE OF LEFT ARTIFICIAL HIP JOINT COMPARISON: None. NUMBER OF VIEWS: Two views. TECHNIQUE: AP and lateral radiographic images acquired of the right elbow. LIMITATIONS: Nonstandard radiographic positioning on frontal film, patient unable to completely stra ighten the elbow. FINDINGS: MINERALIZATION: Normal. BONES: No acute fracture JOINT: No effusion. SOFT TISSUES: There is diffuse soft tissue swelling over the dorsal aspect of the upper arm, dorsal a spect of the elbow at the olecranon, and dorsal aspect of the proximal forearm. Findings are worriso me for diffuse cellulitis. No air bubbles or radiopaque foreign body. OTHER: No other significant finding. IMPRESSION: Diffuse right dorsal arm soft tissue swelling and subcutaneous edema. No underlying fra cture. No definite joint effusion TECHNICAL DOCUMENTATION: JOB ID: [id number] [employer]- All Rights Reserved Reading location - IP/workstation name: [facility]
[2017-09-05] MEDS: ATORVASTATIN CALCIUM 20 MG TABLET PO SCH (21:54)
[2017-09-06] MEDS: LANSOPRAZOLE 30 MG TAB.RAP.DR PO SCH (05:26)
[2017-09-06] MEDS: GABAPENTIN 300 MG CAPSULE PO SCH ×2 (05:26→16:41)
--- NOTE | 2017-09-06 07:19 | PDOC PROGRESS REPORT ---
Subjective Progress Note for:: 09/06/17 Reason For Visit: UNSTABLE RIGHT HIP ARTHROPLASTY 72-year-old white male status post revision left hip arthroplasty for instability with persistent postoperative confusion. Limited progress with physical therapy. Physical Exam Vital Signs: Temp Pulse Resp BP Pulse Ox 37.6 C 93 18 155/65 H 93 09/05/17 23:23 09/05/17 23:23 09/05/17 23:23 09/05/17 23:23 09/05/17 23:23 Intake & Output 09/05/17 09/06/17 09/07/17 06:59 06:59 06:59 Intake Total 1550 307 Output Total 725 Balance 1550 -418 Weight 115.6 kg 116 kg General appearance: PRESENT: no acute distress Head exam: PRESENT: normocephalic Respiratory exam: PRESENT: unlabored Cardiovascular exam: PRESENT: RRR Pulses: PRESENT: +1 pedal pulses bilateral Vascular exam: PRESENT: normal capillary refill GI/Abdominal exam: PRESENT: soft Rectal exam: PRESENT: deferred Extremities exam: PRESENT: other - Left hip dressing clean dry and intact. Leg lengths are equal. Neurological exam: PRESENT: alert Psychiatric exam: PRESENT: other - Confused Results Laboratory Results: 09/05/17 06:40 09/05/17 06:40 09/05/17 09/05/17 06:40 06:40 WBC 13.1 H RBC 3.61 L Hgb 10.7 L Hct 32.3 L MCV 90 MCH 29.6 MCHC 33.1 RDW 14.4 H Plt Count 353 Seg Neutrophils % 79.9 H Lymphocytes % 7.1 L Monocytes % 10.0 Eosinophils % 2.6 Basophils % 0.4 Absolute Neutrophils 10.5 H Absolute Lymphocytes 0.9 Absolute Monocytes 1.3 Absolute Eosinophils 0.3 Absolute Basophils 0.1 Sodium 141.0 Potassium 3.8 Chloride 96 L Carbon Dioxide 32 H Anion Gap 13 BUN 15 Creatinine 0.80 Est GFR ( Amer) > 60 Est GFR (Non-Af Amer) > 60 Glucose 131 H Calcium 9.0 Impressions: Pelvis X-Ray 08/29/17 09:54 IMPRESSION: Postoperative image. Chest X-Ray 09/02/17 00:00 IMPRESSION: NO ACUTE RADIOGRAPHIC FINDING IN THE CHEST. Elbow X-Ray 09/05/17 00:00 IMPRESSION: Diffuse right dorsal arm soft tissue swelling and subcutaneous edema. No underlying fracture. No definite joint effusion Status: Imported from PACS Assessment & Plan - Diagnosis (1) Other mechanical complication of internal left hip prosthesis Is this a current diagnosis for this admission?: Yes Plan: Wound healing uneventfully. Limited progress with physical therapy presumably at least in part to the patient's mental status. Anticipate transfer to detention facility once a bed is available. - Time Time Spent with patient: 15-24 minutes Anticipated discharge: SNF Within: when bed available
[2017-09-06] MEDS: SITAGLIPTIN PHOSPHATE 50 MG TABLET PO SCH ×2 (09:34→16:41)
[2017-09-06] MEDS: FOLIC ACID 1 MG TABLET PO SCH (09:36)
[2017-09-06] MEDS: HYDROCHLOROTHIAZIDE 12.5 MG CAPSULE PO SCH (09:36)
[2017-09-06] MEDS: CETIRIZINE 10 MG TABLET PO SCH (09:36)
[2017-09-06] MEDS: ASPIRIN 81 MG TABLET, ENT COATED PO SCH (09:36)
[2017-09-06] MEDS: LISINOPRIL 10 MG TABLET PO SCH (09:36)
[2017-09-06] MEDS: METFORMIN HCL 500 MG TABLET PO SCH ×2 (09:36→16:41)
[2017-09-06] MEDS: ACETAMINOPHEN 325 MG TABLET PO PRN (09:37)
[2017-09-06] MEDS: PRENATAL VITAMIN W DHA CAPSULE PO SCH (09:37)
[2017-09-06] MEDS: THIAMINE HCL 100 MG TABLET PO SCH (09:37)
[2017-09-06] MEDS: SENNOSIDES/DOCUSATE 8.6-50 MG 1 EACH TABLET PO SCH (09:37)
[2017-09-06] MEDS: METOPROLOL SUCCINATE 50 MG TAB.SR.24H PO SCH (09:37)
--- NOTE | 2017-09-06 12:14 | PDOC PROGRESS REPORT ---
Subjective Progress Note for:: 09/06/17 Subjective:: Patient seen resting in bed. He denies any chest pain, shortness of breath or dyspnea at rest. He denies any cough. He is disoriented to time and place. He denies any nausea, vomiting or abdominal pain. He is having passed some mild pain in left hip relieved with analgesics. Remaining review of systems are negative. Reason For Visit: UNSTABLE RIGHT HIP ARTHROPLASTY Physical Exam Vital Signs: Temp Pulse Resp BP Pulse Ox 98.1 F 109 H 20 140/60 H 94 09/06/17 07:29 09/06/17 07:29 09/06/17 07:29 09/06/17 07:29 09/06/17 07:29 Intake & Output 09/05/17 09/06/17 09/07/17 06:59 06:59 06:59 Intake Total 1550 307 Output Total 725 Balance 1550 -418 Weight 115.6 kg 116 kg General appearance: PRESENT: no acute distress, well-developed, well-nourished Head exam: PRESENT: atraumatic, normocephalic Eye exam: PRESENT: conjunctiva pink, EOMI, PERRLA. ABSENT: scleral icterus Ear exam: PRESENT: normal external ear exam Mouth exam: PRESENT: moist, tongue midline Neck exam: ABSENT: carotid bruit, JVD, lymphadenopathy, thyromegaly Respiratory exam: PRESENT: clear to auscultation luis. ABSENT: rales, rhonchi, wheezes Cardiovascular exam: PRESENT: RRR. ABSENT: diastolic murmur, rubs, systolic murmur Pulses: PRESENT: normal dorsalis pedis pul Vascular exam: PRESENT: normal capillary refill GI/Abdominal exam: PRESENT: normal bowel sounds, soft. ABSENT: distended, guarding, mass, organolmegaly, rebound, tenderness Rectal exam: PRESENT: deferred Extremities exam: PRESENT: tenderness, +1 edema Musculoskeletal exam: PRESENT: normal inspection, tenderness Neurological exam: PRESENT: alert, altered, awake, oriented to person, CN II- XII grossly intact Psychiatric exam: PRESENT: flat affect Skin exam: PRESENT: dry, intact, warm. ABSENT: cyanosis, rash Results Laboratory Results: 09/05/17 06:40 09/05/17 06:40 Impressions: Pelvis X-Ray 08/29/17 09:54 IMPRESSION: Postoperative image. Chest X-Ray 09/02/17 00:00 IMPRESSION: NO ACUTE RADIOGRAPHIC FINDING IN THE CHEST. Elbow X-Ray 09/05/17 00:00 IMPRESSION: Diffuse right dorsal arm soft tissue swelling and subcutaneous edema. No underlying fracture. No definite joint effusion Assessment & Plan - Diagnosis (1) Postoperative fever Is this a current diagnosis for this admission?: Yes Plan: Most likely secondary to atelectasis. There is no signs of acute infection. Chest x-ray shows no pneumonia. Leukocytosis improving. D/c antibiotics (2) Hypertension Qualifiers: Hypertension type: essential hypertension Qualified Code(s): I10 - Essential (primary) hypertension Is this a current diagnosis for this admission?: Yes Plan: Continue current medications he is normotensive (3) Other mechanical complication of internal left hip prosthesis Is this a current diagnosis for this admission?: Yes Plan: Management per orthopedic surgery (4) Dementia Qualifiers: Dementia type: vascular dementia Dementia behavioral disturbance: without behavioral disturbance Qualified Code(s): F01.50 - Vascular dementia without behavioral disturbance Is this a current diagnosis for this admission?: Yes - Time Time Spent with patient: 25-34 minutes Total Critical Time (Minutes): 15 Medications reviewed and adjusted accordingly: Yes Anticipated discharge: SNF, Acute Rehab Within: when bed available
--- NOTE | 2017-09-06 12:28 | PDOC TRANSFER SUMMARY ---
General - Admit/Disc Date/PCP Admission Date/Primary Care Provider: 08/29/17 06:26 HUGO MORTON Discharge Date: 09/06/17 - Discharge Diagnosis (1) Other mechanical complication of internal left hip prosthesis Is this a current diagnosis for this admission?: Yes - Additional Information Resuscitation Status: Full Code - She was antagonistic Discharge Diet: As Tolerated, Regular Discharge Activity: Balance Activity w/Rest, No Driving, No tub bath Home Medications: Aspirin [Ecotrin 81 mg EC Tablet] 81 mg PO DAILY 01/10/17 Atorvastatin Calcium [Lipitor 20 mg Tablet] 20 mg PO QHS 01/10/17 Celecoxib [Celebrex 200 mg Capsule] 200 mg PO DAILY 01/10/17 Gabapentin [Neurontin 300 mg Capsule] 300 mg PO Q8 01/10/17 Hydrochlorothiazide [Hydrodiuril 12.5 mg Capsule] 12.5 mg PO DAILY 01/10/17 Lisinopril [Prinivil 40 mg Tablet] 40 mg PO DAILY 01/10/17 Metoprolol Succinate [Toprol Xl 50 mg Tab.sr] 50 mg PO DAILY 01/10/17 Sitagliptin Phos/Metformin HCl [Janumet 50-1,000 mg Tablet] 1 tab PO BID Cetirizine HCl [Zyrtec] 10 mg PO DAILYP PRN 08/22/17 Folic Acid 1 mg PO DAILY 08/22/17 Thiamine HCl 100 mg PO DAILY 08/22/17 Cyclobenzaprine HCl [Flexeril 10 mg Tablet] 10 mg PO Q8HP PRN 08/29/17 History of Present Illness Admission Date/PCP: 08/29/17 06:26 HUGO MORTON History of Present Illness: DAVID SANTANA is a 72 year old male Patient is a 72-year-old white male status post left hip revision arthroplasty with subsequent prosthetic instability. Patient is admitted for an elective revision arthroplasty. Hospital Course Hospital Course: Patient is admitted through the operating where he undergoes uncomplicated left hip revision arthroplasty. Is returned to floor in satisfactory condition. He has considerable mental status changes that are attributable to progressive dementia. He also has intermittent febrile episodes for which the hospitalist service is consulted and the patient started on empiric antibiotics. Source of the febrile episodes has not been identified. Urine is clean, chest x-rays clear, wound is clean. Hospitalist recommendation is to wean off the antibiotics at the time of discharge. The patient's made limited progress with physical therapy largely because of his mental status changes. Physical Exam Vital Signs: Temp Pulse Resp BP Pulse Ox 36.7 C 55 L 20 110/48 L 93 09/06/17 11:33 09/06/17 11:33 09/06/17 11:33 09/06/17 11:33 09/06/17 11:33 Intake & Output 09/05/17 09/06/17 09/07/17 06:59 06:59 06:59 Intake Total 1550 307 Output Total 725 Balance 1550 -418 Weight 115.6 kg 116 kg General appearance: PRESENT: no acute distress Head exam: PRESENT: normocephalic Respiratory exam: PRESENT: unlabored Cardiovascular exam: PRESENT: RRR Pulses: PRESENT: +1 pedal pulses bilateral Vascular exam: PRESENT: normal capillary refill GI/Abdominal exam: PRESENT: soft Rectal exam: PRESENT: deferred Musculoskeletal exam: PRESENT: other - Left hip wound clean dry and intact. Leg lengths are equal. Distal neurovascular examination is intact. Neurological exam: PRESENT: other - Confused Skin exam: PRESENT: dry, intact, warm. ABSENT: cyanosis, rash Results Laboratory Results: 09/05/17 06:40 09/05/17 06:40 Impressions: Pelvis X-Ray 08/29/17 09:54 IMPRESSION: Postoperative image. Chest X-Ray 09/02/17 00:00 IMPRESSION: NO ACUTE RADIOGRAPHIC FINDING IN THE CHEST. Elbow X-Ray 09/05/17 00:00 IMPRESSION: Diffuse right dorsal arm soft tissue swelling and subcutaneous edema. No underlying fracture. No definite joint effusion Status: Imported from PACS Transfer Plan - Disposition Transfer Plan: Patient be transferred to a nursing home facility. Patient will benefit from physical therapy for weightbearing as tolerated ambulation. Qualifiers - * PATIENT BEING DISCHARGED WITH ANY OF THE FOLLOWING DIAGNOSIS: No VTE patient discharged on overlapping Therapy?: Yes Plan Discharge Plan: Follow-up with Dr. Ulloa and [facility] for surgery in 2 weeks for staple removal.
[2017-09-06 16:08] VITALS: BP 152/74
[2017-09-06] MEDS ORDERED: SODIUM BICARBONATE 8.4% INJ 50 MEQ/50 ML DISP.SYRIN ONE (17:56)
--- NOTE | 2017-09-12 06:28 | PDOC H&P ---
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 Past Medical History Cardiac Medical History: Reports: Hyperlipidema, Hypertension Denies: Atrial Fibrillation, Congestive Heart Failure, Coronary Artery Disease, DVT, Myocardial Infarction, Peripheral Vascular Disease, Heart Murmur Endocrine Medical History: Reports: Diabetes Mellitus Type 2 Denies: Hyperthyroidism, Hypothyroidism Malignancy Medical History: Musculoskeltal Medical History: Reports: Arthritis Denies: Fibromyalgia Psychiatric Medical History: Reports: None Traumatic Medical History: Reports: None Hematology: Infectious Medical History: Past Surgical History Past Surgical History: Reports: Appendectomy, Orthopedic Surgery - left hip replacement, Tonsillectomy Denies: Cholecystectomy, Coronary Artery Bypass Graft, Gastric Bypass Surgery , Herniorrhaphy, Pacemaker Social History Information Source: Patient, Relative, DrValencia Golden, [facility] Records Lives with: Spouse/Significant other Smoking Status: Never Smoker Hx Recreational Drug Use: No Hx Prescription Drug Abuse: No - Advance Directive Resuscitation Status: Full Code - She was antagonistic Family History Family History: None, Other - Patient states he does not know his family history he left home when he was 19 did not know it before then and never went back home now they're both he is an only child.. denies: CAD Parental Family History Reviewed: No Children Family History Reviewed: No Sibling(s) Family History Reviewed.: No Medication/Allergy Home Medications: Aspirin [Ecotrin 81 mg EC Tablet] 81 mg PO DAILY 01/10/17 Atorvastatin Calcium [Lipitor 20 mg Tablet] 20 mg PO QHS 01/10/17 Celecoxib [Celebrex 200 mg Capsule] 200 mg PO DAILY 01/10/17 Gabapentin [Neurontin 300 mg Capsule] 300 mg PO Q8 01/10/17 Hydrochlorothiazide [Hydrodiuril 12.5 mg Capsule] 12.5 mg PO DAILY 01/10/17 Lisinopril [Prinivil 40 mg Tablet] 40 mg PO DAILY 01/10/17 Metoprolol Succinate [Toprol Xl 50 mg Tab.sr] 50 mg PO DAILY 01/10/17 Sitagliptin Phos/Metformin HCl [Janumet 50-1,000 mg Tablet] 1 tab PO BID Cetirizine HCl [Zyrtec] 10 mg PO DAILYP PRN 08/22/17 Folic Acid 1 mg PO DAILY 08/22/17 Thiamine HCl 100 mg PO DAILY 08/22/17 Cyclobenzaprine HCl [Flexeril 10 mg Tablet] 10 mg PO Q8HP PRN 08/29/17 Allergies/Adverse Reactions: No Known Allergies Allergy (Verified 08/15/17 11:12) Review of Systems All systems: as per PMH Physical Exam Vital Signs: Temp Pulse Resp BP Pulse Ox 36.4 C 106 H 16 152/74 H 98 09/06/17 16:04 09/06/17 16:04 09/06/17 16:04 09/06/17 16:04 09/06/17 16:04 General appearance: PRESENT: no acute distress Head exam: PRESENT: normocephalic Respiratory exam: PRESENT: unlabored Cardiovascular exam: PRESENT: irregular rhythm Pulses: PRESENT: +1 pedal pulses bilateral Vascular exam: PRESENT: normal capillary refill GI/Abdominal exam: PRESENT: soft Rectal exam: PRESENT: deferred Musculoskeletal exam: PRESENT: other - Leg lengths equal distal neurovascular examination is intact Neurological exam: PRESENT: alert Skin exam: PRESENT: dry, intact, warm. ABSENT: cyanosis, rash Results Laboratory Results: 09/05/17 06:40 09/05/17 06:40 Impressions: Pelvis X-Ray 08/29/17 09:54 IMPRESSION: Postoperative image. Chest X-Ray 09/02/17 00:00 IMPRESSION: NO ACUTE RADIOGRAPHIC FINDING IN THE CHEST. Elbow X-Ray 09/05/17 00:00 IMPRESSION: Diffuse right dorsal arm soft tissue swelling and subcutaneous edema. No underlying fracture. No definite joint effusion Status: Imported from PACS Assessment & Plan - Diagnosis (1) Other mechanical complication of internal left hip prosthesis Is this a current diagnosis for this admission?: Yes Plan: 72-year-old white male with left prosthetic hip instability admitted now for elective left hip revision arthroplasty - Time Time Spent: 50 to 70 Minutes Anticipated discharge: SNF Within: Other
== END 2017-09-06 17:20 | DRG 468 ==
LOC: INOR 06:26 → 4S 11:24
PROVIDERS: ADMIT Orthopaedic Surgery; ATTEND Orthopaedic Surgery
PROC: 0SUE09Z Supplement Left Hip Joint, Acetabular Surface with Liner, Open Approach (ICD-10-PCS; 2017-08-29)
PROC: 01NF0ZZ Release Sciatic Nerve, Open Approach (ICD-10-PCS; 2017-08-29)
PROC: 0SPB09Z Removal of Liner from Left Hip Joint, Open Approach (ICD-10-PCS; principal; 2017-08-29 08:45)
DX: T84.021A Dislocation of internal left hip prosthesis, initial encounter (principal); Z96.642 Presence of left artificial hip joint; M25.352 Other instability, left hip; R50.82 Postprocedural fever; I10 Essential (primary) hypertension; F01.50 Vascular dementia, unspecified severity, without behavioral disturbance, psychotic disturbance, mood disturbance, and anxiety; E78.00 Pure hypercholesterolemia, unspecified; E11.9 Type 2 diabetes mellitus without complications; M19.90 Unspecified osteoarthritis, unspecified site; Z79.82 Long term (current) use of aspirin; Z79.899 Other long term (current) drug therapy
CPT/HCPCS: 01215; 36415; 71045; 72170; 80048; 80053; 81001; 82947; 82962; 84132; 85025; 85027; 86850; 86900; 86901; 87070; 87075; 87086; 87205; 93005; 93010; 94799; C9290; G8978-GP; G8979-GP; G8987-GO; G8988-GO; J0690; J0696; J1100; J1741; J2250; J2370; J2405; J2704; J3010; J3370; J3490; J7050; J7060; J7120

== ENCOUNTER 2018-05-09 10:24 | Emergency (ER) | payer MEDICARE ==
[2018-05-09 11:14] LABS: ABSOLUTE BASOPHILS # (AUTO) 0.1 10^3/uL (0.0-0.2); ABSOLUTE EOSINOPHILS # (AUTO) 0.2 10^3/uL (0.0-0.6); ABSOLUTE LYMPHOCYTES (AUTO) 1.1 10^3/uL (0.5-4.7); ABSOLUTE MONOCYTES (AUTO) 0.5 10^3/uL (0.1-1.4); ABSOLUTE NEUT (AUTO) 4.9 10^3/uL (1.7-8.2); BASOPHILS % (AUTO) 0.9 % (0-2); EOSINOPHILS % (AUTO) 2.9 % (0-6); HEMATOCRIT 40.1 % (37.9-51.0); HEMOGLOBIN 13.6 g/dL (13.5-17.0); LYMPHOCYTES % (AUTO) 15.7 % (13-45); MEAN CORPUSCULAR HEMOGLOBIN 29.5 pg (27.0-33.4); MEAN CORPUSCULAR HGB CONC 33.8 g/dL (32.0-36.0); MEAN CORPUSCULAR VOLUME 87 fl (80-97); MONOCYTES % (AUTO) 6.9 % (3-13); PLATELET COUNT 324 10^3/uL (150-450); RED BLOOD COUNT 4.59 10^6/uL (4.35-5.55); RED CELL DISTRIBUTION WIDTH 14.6 % (11.5-14.0); SEGMENTED NEUTROPHILS % (AUTO) 73.6 % (42-78); TOTAL CELLS COUNTED % (AUTO) 100 %; WHITE BLOOD COUNT 6.7 10^3/uL (4.0-10.5)
[2018-05-09 11:26] LABS: INTERNATIONAL RATION (INR) 0.88; PROTHROMBIN TIME 12.4 SEC (11.4-15.4)
[2018-05-09 11:36] LABS: ALANINE AMINOTRANSFERASE 33 U/L (21-72); ALBUMIN 4.4 g/dL (3.5-5.0); ALKALINE PHOSPHATASE 77 U/L (38-126); ANION GAP 9 (5-19); ASPARTATE AMINO TRANSFERASE 27 U/L (17-59); BILIRUBIN,DIRECT 0.2 mg/dL (0.0-0.4); BILIRUBIN,TOTAL 0.4 mg/dL (0.2-1.3); BLOOD UREA NITROGEN 14 mg/dL (7-20); CARBON DIOXIDE 32 mmol/L (22-30); CHLORIDE 100 mmol/L (98-107); GLUCOSE 101 mg/dL (75-110); POTASSIUM 4.5 mmol/L (3.6-5.0); SODIUM 140.9 mmol/L (137-145); TOTAL PROTEIN 7.4 g/dL (6.3-8.2)
[2018-05-09 11:48] LABS: CREATINE KINASE MB 1.43 ng/mL (<4.55)
[2018-05-09 11:49] LABS: TROPONIN I < 0.012 ng/mL
--- NOTE | 2018-05-09 11:53 | RADIOLOGY REPORT (SQ) ---
EXAM DESCRIPTION: CHEST 2 VIEWS COMPLETED DATE/TIME: 05/09/2018 11:43 am REASON FOR STUDY: Left lateral chest pain COMPARISON: None. EXAM PARAMETERS: NUMBER OF VIEWS: two views TECHNIQUE: Digital Frontal and Lateral radiographic views of the chest acquired. RADIATION DOSE: NA LIMITATIONS: none FINDINGS: LUNGS AND PLEURA: No opacities, masses or pneumothorax. No pleural effusion. MEDIASTINUM AND HILAR STRUCTURES: No masses or contour abnormalities. HEART AND VASCULAR STRUCTURES: Heart normal size. No evidence for failure. BONES: No acute findings. HARDWARE: None in the chest. OTHER: No other significant finding. IMPRESSION: NO ACUTE RADIOGRAPHIC FINDING IN THE CHEST. TECHNICAL DOCUMENTATION: JOB ID: [id number] [employer]- All Rights Reserved Reading location - IP/workstation name: [email or web address]
[2018-05-09 12:50] LABS: APPEARANCE,URINE CLEAR; BILIRUBIN,URINE NEGATIVE (NEGATIVE); COLOR,URINE YELLOW; GLUCOSE, URINE NEGATIVE (NEGATIVE); KETONES,URINE NEGATIVE (NEGATIVE); LEUKOCYTE ESTERASE,URINE NEGATIVE (NEGATIVE); NITRITE,URINE NEGATIVE (NEGATIVE); PROTEIN,URINE NEGATIVE (NEGATIVE); URINE SPECIFIC GRAVITY 1.009; UROBILINOGEN,URINE NEGATIVE mg/dL (<2.0)
--- NOTE | 2018-05-09 14:02 | ER Document Report ---
ED General - General Chief Complaint: Chest Pain Stated Complaint: FLANK PAIN Time Seen by Provider: 05/09/18 10:53 Notes: Patient is a resident of the [facility], a local dementia/Alzheimer's living facility. Very limited information is available, but EMS was called to transport the patient here to our emergency department for chest pain. Supposedly, the pain is worsened when the patient takes a deep breath or coughs. He has had some cough in the last couple of days. Patient points specifically to the lower left lateral rib region which is very tender to touch or press. Patient is a terrible historian and very difficult to get any helpful information. He is listed as having dementia. Patient is a DNR patient and has the yellow/orange form in his paperwork. TRAVEL OUTSIDE OF THE [place] IN LAST 30 DAYS: No - Related Data Allergies/Adverse Reactions: No Known Allergies Allergy (Verified 08/15/17 11:12) Past Medical History - Social History Smoking Status: Unknown if Ever Smoked Family History: None, Reviewed & Not Pertinent, Other - Patient states he does not know his family history he left home when he was 19 did not know it before then and never went back home now they're both he is an only child.. denies: CAD Patient has suicidal ideation: No Patient has homicidal ideation: No - Past Medical History Cardiac Medical History: Reports: Hx Hypercholesterolemia, Hx Hypertension Endocrine Medical History: Reports: Hx Diabetes Mellitus Type 2 Malignancy Medical History: Musculoskeletal Medical History: Reports Hx Arthritis Infectious Medical History: Past Surgical History: Reports: Hx Appendectomy, Hx Orthopedic Surgery - left hip replacement, Hx Tonsillectomy - Immunizations Hx Diphtheria, Pertussis, Tetanus Vaccination: Yes Hx Pneumococcal Vaccination: 04/25/14 Review of Systems - Review of Systems -: Yes ROS unobtainable due to patient's medical condition - Dementia and difficulty speaking. Physical Exam - Vital signs Vitals: Temp 97.4 F 05/09/18 10:34 Interpretation: Normal. No: Tachycardic - Heart rate 76., Hypoxic - O2 sat 98%. Notes: PHYSICAL EXAMINATION: GENERAL: Well-appearing, in no acute distress. Vital signs are all normal. HEAD: Atraumatic, normocephalic. EYES: Pupils equal round and reactive to light, extraocular movements intact. ENT: oropharynx clear without exudates. Moist mucous membranes. NECK: Normal range of motion, supple. LUNGS: Breath sounds clear and equal bilaterally. Patient has a spot in the lower left anterior axillary line about the level of the nipple where he is exqu isitely tender to press with 1 or 2 fingers. When I do so, the patient winces and withdraws. No pleural rubs heard. HEART: Regular rate and rhythm without murmurs. No pericardial rubs heard. ABDOMEN: Soft, nontender. No guarding or rebound. No masses. BACK: No tenderness throughout entire back. EXTREMITIES: Normal range of motion without pain. No swelling. Negative Homans bilaterally. NEUROLOGICAL: Dementia without much memory of distant past or even recent past. Very poor historian. Speaks very slowly and deliberately and is hard to understand. PSYCH: unable to assess because of patient's dementia. SKIN: Warm, dry, no rashes. Course - Vital Signs Vital signs: Temp Pulse Resp BP Pulse Ox 97.4 F 15 170/79 H 96 05/09/18 10:34 05/09/18 14:00 05/09/18 11:01 05/09/18 14:00 - Laboratory Result Diagrams: 05/09/18 11:00 05/09/18 11:00 Laboratory results interpreted by me: 05/09/18 05/09/18 11:00 11:00 RDW 14.6 H Carbon Dioxide 32 H - Diagnostic Test Radiology results interpreted by ga: 05/09/18 14:17 Chest x-ray is normal. - EKG Interpretation by Co EKG shows normal: Sinus rhythm Rate: Normal Rhythm: NSR [place]/QRS: RBBB Additional EKG results interpreted by ga: 05/09/18 14:17 EKG is normal. Discharge - Discharge Clinical Impression: Dementia, Chest wall pain Condition: Stable Disposition: HOME, SELF-CARE Additional Instructions: CHEST PAIN OF UNCLEAR CAUSE: The exact cause of your chest pain isn't clear. Fortunately, there is no evidence of a dangerous medical condition. Further testing may be required to find the source of the pain. Most often, we find that this pain is coming from the chest wall -- the muscles or rib joints in the chest. But chest pain can come from the lung and lung lining, the esophagus, the heart valves or heart lining, and even the stomach or gallbladder. Rest. Eat lightly until the pain is gone. We may prescribe medicine for pain and inflammation. You should call the physician immediately if the pain radiates to the shoulder, jaw or arms; if you start to run a fever or develop a cough; or if you develop shortness of breath, or other new or alarming symptoms. NORMAL EXAM AND WORKUP: At this time, your examination and workup show no significant abnormality. No significant abnormal physical findings were noted. All laboratory, EKG, and imaging (x-ray, CT scans, ultrasound) studies that were ordered show no significant abnormality. Although your examination and all studies that were ordered showed no significant abnormal finding, there are no examinations and no studies that are 100% accurate. There is always the possibility that some abnormality could exist and not be detected with physical examination or within the limits and capabilities of laboratory and other studies. You should return or follow up as you were instructed on your visit today for further evaluation if your symptoms do not resolve. CHEST WALL PAIN: Your chest pain may be coming from the chest wall. This is often caused by straining the muscles or joints in the chest during physical activity, direct trauma, coughing, or vigorous vomiting. Persons with arthritis are especially prone to this type of pain, due to inflammation of the cartilage joints near the breast bone. Occasionally, no cause can be found. Rest from strenuous physical activity. This kind of chest pain is usually made worse by movement of the chest. Depending on the symptoms, we may prescribe medicine for pain, muscle relaxation, and antiinflammatory effects. If the pain is new, and seems to be due to muscle strain, cold packs can help. Otherwise, apply gentle warmth to the painful area for 15 minutes every hour or two. You should call contact the doctor immediately if things change. Further evaluation is needed if you develop a fever or cough, if the nature of the pain changes, or if you become short of breath. FOLLOW-UP CARE: If you have been referred to a physician for follow-up care, call the physicians office for an appointment as you were instructed or within the next two days. If you experience worsening or a significant change in your symptoms, notify the physician immediately or return to the Emergency Department at any time for re-evaluation.
[2018-05-09] MEDS ORDERED: ACETAMINOPHEN 325 MG TABLET PO ONE (14:13)
[2018-05-09 14:57] VITALS: BP 144/84
--- NOTE | 2018-05-10 17:57 | EKG REPORT ---
SEVERITY:- ABNORMAL ECG - SINUS RHYTHM ATRIAL PREMATURE COMPLEX RIGHT BUNDLE BRANCH BLOCK : Confirmed by: Meredith Wallace 10-May-2018 17:57:26
== END 2018-05-09 15:25 | disposition home or self-care (01) ==
LOC: ER 10:24
DX: R07.89 Other chest pain (principal); F03.90 Unspecified dementia, unspecified severity, without behavioral disturbance, psychotic disturbance, mood disturbance, and anxiety; R05 Cough; I10 Essential (primary) hypertension; E11.9 Type 2 diabetes mellitus without complications; I45.10 Unspecified right bundle-branch block; Z66 Do not resuscitate
CPT/HCPCS: 93005; 99284; 36415; 87040; 82553; 85025; 85610; 80053; 81001; 84484; 71046; 93010; A9270

== ENCOUNTER 2018-09-17 22:42 | Emergency (ER) | payer MEDICARE, OTHER ==
--- NOTE | 2018-09-17 23:02 | ER Document Report ---
ED General - General Stated Complaint: WEAKNESS Time Seen by Provider: 09/17/18 22:54 Notes: Patient is a pleasant 73-year-old male presents with complaint of numbness. He states at the memory care unit at [facility]. He has severe dementia. His baseline per nursing report is that he mumbles his speech and will sometimes walk but is staggered with his gait. This is actually very similar to his presentation is right now. Per nursing report the retirement is concerned that the symptoms have worsened over the last few days. No fevers. Patient self denies any pain. He does admit that he does feel some weakness. He says is more global. He denies a headache. He denies chest pain. No shortness of breath. Denies vomiting. Patient is DNR. He has no other complaints at this time. TRAVEL OUTSIDE OF THE [place] IN LAST 30 DAYS: No - Related Data Allergies/Adverse Reactions: No Known Allergies Allergy (Verified 09/17/18 23:25) Past Medical History - Social History Smoking Status: Never Smoker Frequency of alcohol use: None Drug Abuse: None Family History: None, Reviewed & Not Pertinent, Other - Patient states he does not know his family history he left home when he was 19 did not know it before then and never went back home now they're both he is an only child.. denies: CAD - Past Medical History Cardiac Medical History: Reports: Hx Hypercholesterolemia, Hx Hypertension Denies: Hx Atrial Fibrillation, Hx Congestive Heart Failure, Hx Heart Attack Endocrine Medical History: Reports: Hx Diabetes Mellitus Type 2 Renal/ Medical History: Denies: Hx Peritoneal Dialysis Malignancy Medical History: Musculoskeletal Medical History: Reports Hx Arthritis, Denies Hx Systemic Lupus Erythematosus Infectious Medical History: Past Surgical History: Reports: Hx Appendectomy, Hx Orthopedic Surgery - left hip replacement, Hx Tonsillectomy. Denies: Hx Cholecystectomy - Immunizations Hx Diphtheria, Pertussis, Tetanus Vaccination: Yes Hx Pneumococcal Vaccination: 04/25/14 Review of Systems - Review of Systems Notes: My Normal Review Basic REVIEW OF SYSTEMS: CONSTITUTIONAL : Patient says he feels globally weak. EENT: Denies eye, ear, throat, or mouth pain or symptoms. Denies nasal or sinus congestion. CARDIOVASCULAR: Denies chest pain. RESPIRATORY: Denies cough, cold, or chest congestion. Denies shortness of breath, difficulty breathing, or wheezing. GASTROINTESTINAL: Denies abdominal pain. Denies nausea, vomiting, or diarrhea GENITOURINARY: Denies difficulty urinating, painful urination, burning, frequency, or blood in urine. MUSCULOSKELETAL: Denies neck or back pain or joint pain or swelling. SKIN: Denies rash or skin lesions. NEUROLOGICAL: Denies altered mental status or loss of consciousness. Denies headache. Denies weakness or paralysis or loss of use of either side. Denies problems with gait or speech. Denies sensory or motor loss. ALL OTHER SYSTEMS REVIEWED AND NEGATIVE. Physical Exam - Vital signs Vitals: Temp Resp Pulse Ox 97.9 F 17 94 09/17/18 22:47 09/17/18 22:47 09/17/18 22:47 - Notes Notes: General Appearance: Well nourished, alert, cooperative, no acute distress, no obvious discomfort. She does weak appearing. He does open his eyes and answers questions appropriately. His speech is a little bit mumbled at times which sounds to be consistent with his baseline per the nursing report. Vitals: reviewed, See vital signs table. Head: no swelling or tenderness to the head Eyes: PERRL, EOMI, Conjuctiva clear Mouth: No decreasd moisture Lungs: No wheezing, No rales, No rhonci, No accessory muscle use, good air exchange bilaterally. Heart: Normal rate, Regular rythm, No murmur, no rub Abdomen: Normal BS, soft, No rigidity, No abdominal tenderness, No guarding, no rebound, no abdominal masses, no organomegaly Extremities: strength 4/5 in all extremities, good pulses in all extremities, no swelling or tenderness in the extremities, no edema. Skin: warm, dry, appropriate color, no rash Neuro: speech slightly mumbled at times, oriented x 2, normal affect, responds appropriately to questions. Cranial nerves II through XII are intact. Distal sensation intact. Course - Re-evaluation Re-evalutation: 09/18/18 01:18 I do not see any concerning findings on patient's laboratory evaluation. He does not have any chest pain. His EKG and troponin are negative. CT scan of his head is negative. He is not hypercarbic or acidotic. He has no signs of infection. I do not see any concerning signs of an underlying illness and will require admission. At this time I will discharge patient back to the retirement with instructions to return to ER if he has fevers, any pain, or worsening of his symptoms. Dictation of this chart was performed using voice recognition software; therefore, there may be some unintended grammatical errors. - Vital Signs Vital signs: Temp Pulse Resp BP Pulse Ox 97.9 F 15 150/75 H 100 09/17/18 22:47 09/18/18 00:01 09/18/18 00:01 09/18/18 00:01 - Laboratory Result Diagrams: 09/17/18 23:39 09/17/18 23:39 Laboratory results interpreted by me: 09/17/18 09/17/18 09/18/18 23:39 23:39 00:14 RBC 4.28 L Hgb 12.4 L BUN 24 H Urine Protein 30 H Urine Ascorbic Acid 20 H - EKG Interpretation by Me Additional EKG results interpreted by me: 09/17/18 22:59 EKG is reviewed and interpreted by me. EKG shows sinus rhythm with a rate of [address] segment elevation or depression. Patient does have a right bundle branch block. NC interval slightly prolonged. QRS duration is prolonged. QTc interval is within normal range. NC interval, QRS is prolonged. QTc interval is within normal range. Discharge - Discharge Clinical Impression: Weakness Dementia Qualifiers: Dementia type: unspecified type Dementia behavioral disturbance: without behavioral disturbance Qualified Code(s): F03.90 - Unspecified dementia without behavioral disturbance Condition: Good Disposition: HOME, SELF-CARE Additional Instructions: Mr Gilmore's work-up did not show any concerning findings tonight. There is CT scan of his head which was normal. There are no signs of infection on his blood work or urine. His labs are all normal. There are no signs of heart attack on his work-up either. Please continue his medications as prescribed. Please have him follow-up with his doctor on Tuesday for reevaluation. Please send him back to the ER if he has worsening of his symptoms, fevers, or appears unwell.
--- NOTE | 2018-09-17 23:52 | RADIOLOGY REPORT (SQ) ---
EXAM DESCRIPTION: XR CHEST 1 VIEW COMPLETED DATE/TME: 09/17/2018 23:00 CLINICAL HISTORY: 73 years, Male, altered mental status COMPARISON: Multiple priors, most recent from 05/09/2018 NUMBER OF VIEWS: One TECHNIQUE: Single frontal view of the chest was obtained portably. LIMITATIONS: None. FINDINGS: Cardiac and mediastinal contours are normal in appearance. Lungs are clear. No pleural effusion or pneumothorax. IMPRESSION: No acute disease. copyright 2010 [employer]- All Rights Reserved
[2018-09-17 23:56] LABS: ABSOLUTE BASOPHILS # (AUTO) 0.1 10^3/uL (0.0-0.2); ABSOLUTE EOSINOPHILS # (AUTO) 0.4 10^3/uL (0.0-0.6); ABSOLUTE LYMPHOCYTES (AUTO) 1.9 10^3/uL (0.5-4.7); ABSOLUTE MONOCYTES (AUTO) 0.7 10^3/uL (0.1-1.4); ABSOLUTE NEUT (AUTO) 4.5 10^3/uL (1.7-8.2); BASOPHILS % (AUTO) 0.9 % (0-2); EOSINOPHILS % (AUTO) 4.8 % (0-6); HEMATOCRIT 37.9 % (37.9-51.0); HEMOGLOBIN 12.4 g/dL (13.5-17.0); LYMPHOCYTES % (AUTO) 25.3 % (13-45); MEAN CORPUSCULAR HEMOGLOBIN 28.9 pg (27.0-33.4); MEAN CORPUSCULAR HGB CONC 32.7 g/dL (32.0-36.0); MEAN CORPUSCULAR VOLUME 89 fl (80-97); MONOCYTES % (AUTO) 8.8 % (3-13); PLATELET COUNT 224 10^3/uL (150-450); RED BLOOD COUNT 4.28 10^6/uL (4.35-5.55); SEGMENTED NEUTROPHILS % (AUTO) 60.2 % (42-78); TOTAL CELLS COUNTED % (AUTO) 100 %; WHITE BLOOD COUNT 7.5 10^3/uL (4.0-10.5)
[2018-09-17 23:59] LABS: VENOUS BLOOD BASE EXCESS 2.7 mmol/L; VENOUS BLOOD HCO3 29.2 mmol/L (20-32); VENOUS BLOOD PCO2 52.7 mmHg (35-63); VENOUS BLOOD PH 7.36 (7.30-7.42)
--- NOTE | 2018-09-17 23:59 | RADIOLOGY REPORT (SQ) ---
EXAM DESCRIPTION: CT HEAD WITHOUT IV CONTRAST COMPLETED DATE/TME: 09/17/2018 23:00 CLINICAL HISTORY: 73 years Male, altered mental status COMPARISON: None. TECHNIQUE: No contrast. Coronal and sagittal reformat. This exam was performed according to our departmental dose-optimization program, which includes automated exposure control, adjustment of the mA and/or kV according to patient size and/or use of iterative reconstruction technique. FINDINGS: No hemorrhage or infarct. No mass, mass effect, or midline shift. White matter microangiopathy, parenchymal volume loss, and atherosclerosis. Brain and extra-axial structures appear otherwise intact. IMPRESSION: No acute findings.
[2018-09-18 00:17] LABS: ALANINE AMINOTRANSFERASE 28 U/L (21-72); ALBUMIN 3.8 g/dL (3.5-5.0); ALKALINE PHOSPHATASE 84 U/L (38-126); ANION GAP 11 (5-19); ASPARTATE AMINO TRANSFERASE 22 U/L (17-59); BILIRUBIN,DIRECT 0.2 mg/dL (0.0-0.4); BILIRUBIN,TOTAL 0.3 mg/dL (0.2-1.3); BLOOD UREA NITROGEN 24 mg/dL (7-20); CALCIUM 9.4 mg/dL (8.4-10.2); CARBON DIOXIDE 29 mmol/L (22-30); CHLORIDE 101 mmol/L (98-107); GLUCOSE 86 mg/dL (75-110); POTASSIUM 4.3 mmol/L (3.6-5.0); SODIUM 140.5 mmol/L (137-145); TOTAL PROTEIN 6.8 g/dL (6.3-8.2)
[2018-09-18 00:20] VITALS: BP 150/75
[2018-09-18 00:32] LABS: APPEARANCE,URINE CLEAR; BILIRUBIN,URINE NEGATIVE (NEGATIVE); COLOR,URINE YELLOW; GLUCOSE, URINE NEGATIVE (NEGATIVE); KETONES,URINE NEGATIVE (NEGATIVE); LEUKOCYTE ESTERASE,URINE NEGATIVE (NEGATIVE); NITRITE,URINE NEGATIVE (NEGATIVE); PROTEIN,URINE 30 mg/dL (NEGATIVE); URINE SPECIFIC GRAVITY 1.027; UROBILINOGEN,URINE NEGATIVE mg/dL (<2.0)
--- NOTE | 2018-09-18 14:06 | EKG REPORT ---
SEVERITY:- ABNORMAL ECG - SINUS RHYTHM ATRIAL PREMATURE COMPLEX RIGHT BUNDLE BRANCH BLOCK : Confirmed by: Cathy Anand MD 18-Sep-2018 14:06:10
== END 2018-09-18 02:35 | disposition home or self-care (01) ==
LOC: ER 22:42
DX: R53.1 Weakness (principal); F03.90 Unspecified dementia, unspecified severity, without behavioral disturbance, psychotic disturbance, mood disturbance, and anxiety; E78.00 Pure hypercholesterolemia, unspecified; I10 Essential (primary) hypertension; E11.9 Type 2 diabetes mellitus without complications; Z96.642 Presence of left artificial hip joint
CPT/HCPCS: 36415; 51701; 70450; 71045; 80053; 81001; 82803; 84484; 85025; 93005; 93010; 99285

== ENCOUNTER 2018-12-12 11:00 | Emergency (ER) | payer MEDICARE ==
--- NOTE | 2018-12-12 11:23 | ER Document Report ---
ED General - General Chief Complaint: Fall Stated Complaint: WEAKNESS Time Seen by Provider: 12/12/18 11:15 TRAVEL OUTSIDE OF THE [place] IN LAST 30 DAYS: No - HPI Notes: Patient is a 73-year-old male from the [facility], sent in for evaluation after a fall. Evidently he was sitting in the shower chair and slipped to the ground. The fall was unwitnessed. The patient really cannot offer me any history. He had complained of hip pain at one point, but denies that now. He is unsure as to whether or not he hit his head. He was conscious when he was found by staff. He is only on baby aspirin daily, no other blood thinners. - Related Data Allergies/Adverse Reactions: No Known Allergies Allergy (Verified 09/17/18 23:25) Home Medications: Acetaminophen, aspirin, Celebrex, clotrimazole, Flexeril, Neurontin, hydrochlorothiazide, Janumet, lisinopril, metoprolol, nystatin, Zoloft, prednisone, vitamin B, vitamin C, zinc Past Medical History - General Information source: Outside Facility Records - Social History Smoking Status: Never Smoker Chew tobacco use (# tins/day): No Frequency of alcohol use: None Drug Abuse: None Family History: None, Reviewed & Not Pertinent, Other - Patient states he does not know his family history he left home when he was 19 did not know it before then and never went back home now they're both he is an only child.. denies: CAD Patient has suicidal ideation: No Patient has homicidal ideation: No - Past Medical History Cardiac Medical History: Reports: Hx Hypercholesterolemia, Hx Hypertension Denies: Hx Atrial Fibrillation, Hx Congestive Heart Failure, Hx Heart Attack Endocrine Medical History: Reports: Hx Diabetes Mellitus Type 2 Renal/ Medical History: Denies: Hx Peritoneal Dialysis Malignancy Medical History: Musculoskeletal Medical History: Reports Hx Arthritis, Denies Hx Systemic Lupus Erythematosus Psychiatric Medical History: Reports: Hx Dementia Infectious Medical History: Past Surgical History: Reports: Hx Appendectomy, Hx Orthopedic Surgery - left hip replacement, Hx Tonsillectomy. Denies: Hx Cholecystectomy - Immunizations Hx Diphtheria, Pertussis, Tetanus Vaccination: Yes Hx Pneumococcal Vaccination: 04/25/14 Review of Systems - Review of Systems -: Yes ROS unobtainable due to patient's medical condition - Obtainable secondary to patient's dementia Physical Exam - Vital signs Vitals: Temp Pulse Resp BP Pulse Ox 98.1 F 72 14 164/70 H 93 12/12/18 11:08 12/12/18 11:08 12/12/18 11:08 12/12/18 11:08 12/12/18 11:08 - Notes Notes: This is a 73-year-old male who appears his stated age, no acute distress. He is lying in the bed with c-collar in place. Head is normocephalic and appears atraumatic, although the patient seems to be globally tender throughout the scalp. Pupils are equal round, reactive to light. Oral mucosa is moist. Nares are patent without septal hematoma. No facial bone tenderness. Heart is regular rate and rhythm, lungs are clear to oscillation bilaterally. Chest wall is nontender. Abdomen soft, nontender, normoactive bowel sounds. Patient is tender over bilateral greater trochanters. He does not seem to have any significant tenderness with range of motion of the hip. Neurovascularly intact to bilateral lower extremities distally. Patient is awake and alert. He is oriented to person, disoriented to place and time. He has no gross facial asymmetry. Moves all 4 extremities spontaneously. Course - Re-evaluation Re-evalutation: 12/12/18 11:23 Patient presents to the emergency department for evaluation. Because of his dementia he is not offering any meaningful history. We will go ahead and image the patient's head, neck, bilateral hips. We will continue to monitor. 12/12/18 12:32 Patient's films failed to reveal any signs of acute fracture or intracranial hemorrhage. I went and tolerated cervical spine, was able to be cleared. C- collar removed. We will send patient back to [facility]. He is to return to the ED if worsening or new concerning symptoms, follow-up with primary care this week. - Vital Signs Vital signs: Temp Pulse Resp BP Pulse Ox 98.1 F 73 14 164/70 H 93 12/12/18 11:08 12/12/18 11:08 12/12/18 11:08 12/12/18 11:08 12/12/18 11:08 Discharge - Discharge Clinical Impression: Fall Qualifiers: Encounter type: initial encounter Qualified Code(s): W19.XXXA - Unspecified fall, initial encounter Condition: Stable Disposition: OTHER Instructions: Contusion ([facility]) Additional Instructions: No significant injury was found on evaluation today. Follow-up with your primary care provider this week. Return the emergency department with worsening or new concerning symptoms of any sort.
--- NOTE | 2018-12-12 11:41 | RADIOLOGY REPORT (SQ) ---
EXAM DESCRIPTION: CT HEAD WITHOUT COMPLETED DATE/TIME: 12/12/2018 11:33 am REASON FOR STUDY: fall COMPARISON: 09/17/2018 TECHNIQUE: Axial images acquired through the brain without intravenous contrast. Images reviewed wi th bone, brain and subdural windows. Additional sagittal and coronal reconstructions were generated. Images stored on PACS. All CT scanners at this facility use dose modulation, iterative reconstruction, and/or weight based d osing when appropriate to reduce radiation dose to as low as reasonably achievable (ALARA). [facility]: Dose Right [facility]: CareDose [facility]: Dose Right [facility]: Teradose 4D [facility]: [employer] RADIATION DOSE: CT Rad equipment meets quality standard of care and radiation dose reduction techniq ues were employed. CTDIvol: 48.6 mGy. DLP: 905 mGy-cm. mGy. LIMITATIONS: None. FINDINGS: VENTRICLES: Normal size and contour. CEREBRUM: No masses. No hemorrhage. No midline shift. No evidence for acute infarction. Few scatte red areas of low density in the white matter most likely chronic small vessel ischemic changes. CEREBELLUM: No masses. No hemorrhage. No alteration of density. No evidence for acute infarction. EXTRAAXIAL SPACES: No fluid collections. No masses. ORBITS AND GLOBE: No intra- or extraconal masses. Normal contour of globe without masses. CALVARIUM: No fracture. PARANASAL SINUSES: No fluid or mucosal thickening. SOFT TISSUES: No mass or hematoma. OTHER: No other significant finding. IMPRESSION: No acute intracranial pathology. Small vessel white matter disease. EVIDENCE OF ACUTE STROKE: NO. COMMENT: Quality ID # [id number]: Final reports with documentation of one or more dose reduction techniques (e.g., Automated exposure control, adjustment of the mA and/or kV according to patient size, use of iterative reconstruction technique) TECHNICAL DOCUMENTATION: JOB ID: [id number] [employer]- All Rights Reserved Reading location - IP/workstation name: [email or web address]
--- NOTE | 2018-12-12 11:42 | RADIOLOGY REPORT (SQ) ---
EXAM DESCRIPTION: CT CERVICAL SPINE WITHOUT COMPLETED DATE/TIME: 12/12/2018 11:33 am REASON FOR STUDY: fall COMPARISON: None. TECHNIQUE: Axial images acquired through the cervical spine without intravenous contrast. Images re viewed with lung, soft tissue and bone windows. Reconstructed coronal and sagittal MPR images review ed. Images stored on PACS. All CT scanners at this facility use dose modulation, iterative reconstruction, and/or weight based d osing when appropriate to reduce radiation dose to as low as reasonably achievable (ALARA). [facility]: Dose Right [facility]: CareDose [facility]: Dose Right [facility]: Teradose 4D [facility]: [employer] RADIATION DOSE: CT Rad equipment meets quality standard of care and radiation dose reduction techniq ues were employed. CTDIvol: 25.6 mGy. DLP: 580 mGy-cm. mGy. LIMITATIONS: None. FINDINGS: ALIGNMENT: Anatomic. MINERALIZATION: Normal. VERTEBRAL BODIES: No fractures or dislocation. DISCS: Moderate multilevel disc degenerative disease and osteophytosis. FACETS, LATERAL MASSES, POSTERIOR ELEMENTS: No fractures. No dislocation. No acute findings. HARDWARE: None in the spine. VISUALIZED RIBS: No fractures. LUNG APICES AND SOFT TISSUES: No significant or acute findings. OTHER: No other significant finding. IMPRESSION: No fracture or static subluxation of the cervical spine. TECHNICAL DOCUMENTATION: JOB ID: [id number] Quality ID # [id number]: Final reports with documentation of one or more dose reduction techniques (e.g., Au tomated exposure control, adjustment of the mA and/or kV according to patient size, use of iterative reconstruction technique) 2010 [employer]- All Rights Reserved Reading location - IP/workstation name: [email or web address]
--- NOTE | 2018-12-12 11:54 | RADIOLOGY REPORT (SQ) ---
EXAM DESCRIPTION: HIP BILATERAL COMPLETED DATE/TIME: 12/12/2018 11:46 am REASON FOR STUDY: fall COMPARISON: 08/25/2014 NUMBER OF VIEWS: Two views TECHNIQUE: AP pelvis and additional frog-leg view of both hips. LIMITATIONS: None. FINDINGS: MINERALIZATION: Normal. HIPS: There is been a total left hip replacement. There are degenerative changes on the right with j oint space narrowing. There is no acute fracture or dislocation. PELVIS AND SACRUM: No acute fracture or dislocation. No worrisome bone lesions. PUBIS AND ISCHIUM: No acute fracture. LOWER LUMBAR SPINE: No significant findings as visualized. SOFT TISSUES: No findings. OTHER: No other significant finding. IMPRESSION: Postsurgical changes in the left hip as described. No acute fracture or dislocation. TECHNICAL DOCUMENTATION: JOB ID: [id number] [employer]- All Rights Reserved Reading location - IP/workstation name: [email or web address]
[2018-12-12 13:01] VITALS: BP 160/70
== END 2018-12-12 13:07 | disposition home health service (06) ==
LOC: ER 11:00
DX: M25.559 Pain in unspecified hip (principal); W07.XXXA Fall from chair, initial encounter; Y92.192 Bathroom in other specified residential institution as the place of occurrence of the external cause; I10 Essential (primary) hypertension; E11.9 Type 2 diabetes mellitus without complications; F03.90 Unspecified dementia, unspecified severity, without behavioral disturbance, psychotic disturbance, mood disturbance, and anxiety; Z79.82 Long term (current) use of aspirin; Z79.899 Other long term (current) drug therapy; Z79.84 Long term (current) use of oral hypoglycemic drugs; Z79.52 Long term (current) use of systemic steroids; Z79.1 Long term (current) use of non-steroidal anti-inflammatories (NSAID); Z96.642 Presence of left artificial hip joint
CPT/HCPCS: 70450; 72125; 73522; 99285

== ENCOUNTER 2019-08-11 01:13 | Emergency (ER) | payer MEDICARE ==
[2019-08-11] MEDS ORDERED: CEPHALEXIN 500 MG CAPSULE PO ONE (01:35)
[2019-08-11] MEDS ORDERED: BACITRACIN ZINC OINTMENT 15 GM TP ONE (01:37)
--- NOTE | 2019-08-11 01:58 | ER Document Report ---
Entered by FRANCES BULLARD SCRIBE 08/11/19 0124 Acting as scribe for:JOI TORRES IV, MD ED Extremity Problem, Lower - General Chief Complaint: Foot Pain Stated Complaint: BLISTERS ON FOOT Time Seen by Provider: 08/11/19 01:22 Mode of Arrival: Medic Information source: Emergency Med Personnel Notes: This 73 year old male patient with a history of type 2 diabetes and Alzheimer's brought in by EMS from [facility] presents to the ED today with complaints of left foot pain due to blisters on top of the left foot for the past x1 week. According to ED nurse, the facility staff reports that the the blister on the patient's left foot ruptured yesterday and there was green/yellow discharge. The patient's foot was also warm to the touch and edematous, so he was sent here for evaluation. The blisters were cleaned and dressed for the past x1 week. ED nurse reports that the patient is mostly nonverbal which is his baseline. Patient is on a beta yared. TRAVEL OUTSIDE OF THE [place] IN LAST 30 DAYS: No - Related Data Allergies/Adverse Reactions: No Known Allergies Allergy (Verified 09/17/18 23:25) Past Medical History - General Information source: [facility] Records - Social History Smoking Status: Unknown if Ever Smoked Cigarette use (# per day): No Chew tobacco use (# tins/day): No Smoking Education Provided: No Lives with: Custodial Family History: Reviewed & Not Pertinent, Other - Patient states he does not know his family history he left home when he was 19 did not know it before then and never went back home now they're both he is an only child. Patient has suicidal ideation: No Patient has homicidal ideation: No - Past Medical History Cardiac Medical History: Reports: Hx Hypercholesterolemia, Hx Hypertension Endocrine Medical History: Reports: Hx Diabetes Mellitus Type 2 Malignancy Medical History: Musculoskeletal Medical History: Reports Hx Arthritis Psychiatric Medical History: Reports: Hx Dementia Infectious Medical History: Past Surgical History: Reports: Hx Appendectomy, Hx Orthopedic Surgery - left hip replacement, Hx Tonsillectomy - Immunizations Hx Diphtheria, Pertussis, Tetanus Vaccination: Yes Hx Pneumococcal Vaccination: 04/25/14 Review of Systems - Review of Systems Constitutional: No symptoms reported EENT: No symptoms reported Cardiovascular: No symptoms reported Respiratory: No symptoms reported Gastrointestinal: No symptoms reported Genitourinary: No symptoms reported Male Genitourinary: No symptoms reported Musculoskeletal: See HPI, Leg swelling, Other - Foot pain Skin: See HPI, Other - Blisters Hematologic/Lymphatic: No symptoms reported Neurological/Psychological: No symptoms reported -: Yes All other systems reviewed and negative Physical Exam - Vital signs Vitals: Temp Pulse Resp BP Pulse Ox 98.0 F 61 16 151/73 H 99 08/11/19 01:29 08/11/19 01:08/11/19 01:08/11/19 01:08/11/19 01:29 - General General appearance: Alert In distress: None - HEENT Head: Normocephalic, Atraumatic Eyes: Normal Pupils: PERRL - Respiratory Respiratory status: No respiratory distress Chest status: Nontender Breath sounds: Normal Chest palpation: Normal - Cardiovascular Rhythm: Regular Heart sounds: Normal auscultation Murmur: No Friction rub: No Gallop: None auscultated - Abdominal Inspection: Normal Distension: No distension Bowel sounds: Normal Tenderness: Nontender - Abdomen soft Organomegaly: No organomegaly - Back Back: Normal, Nontender - Extremities General upper extremity: Normal inspection Foot: Other - Lesion on top of left foot - Neurological Neuro grossly intact: Yes - Psychological Associated symptoms: Normal affect, Normal mood - Skin Skin Temperature: Warm Skin Moisture: Dry Skin Color: Normal Skin irregularity: Lesion - Macular, erythematous circular lesion noted to be 2 cm in diameter located to the top of the left foot. No exudate. No surrounding erythema Course - Vital Signs Vital signs: Temp Pulse Resp BP Pulse Ox 97.4 F 57 L 16 161/73 H 96 08/11/19 03:42 08/11/19 03:42 08/11/19 03:42 08/11/19 03:42 08/11/19 03:42 Discharge - Discharge Clinical Impression: Blister (nonthermal), left foot, initial encounter Condition: Good Disposition: HOME, SELF-CARE Additional Instructions: Return to the Emergency Department without delay if any worse. HOME CARE INSTRUCTIONS & INFORMATION: Thank you for choosing us for your medical needs. We hope you're satisfied with the care you received. After you leave, you must properly care for your problem and, at the same time, observe its progress. Any condition can change. Some illnesses can change rapidly over hours or days. If your condition worsens, return to the Emergency Department or see your physician promptly. ABOUT YOUR X-RAYS AND EKG'S: If you had an EKG or X-rays taken, they have been read by the Emergency Physician. The X-rays and EKG's will also be read by a Radiologist or [facility] within 24 hours. If discrepancies are noted, you will be notified by telephone. Please be certain the ED has a correct telephone number & address where you can be reached. Also, realize that some fractures or abnormalities do not show up on initial X-rays. If your symptoms continue, see your physician. ABOUT YOUR LABORATORY TEST: If you had laboratory tests, the results have been reviewed by the Emergency Physician. Some test results (for example cultures) may not be available for several days. You will be contacted if any test result shows you need additional treatment. Please be certain the ED has a correct telephone number and address where you can be reached. ABOUT YOUR MEDICATIONS: You will receive instructions on how to take your medicine on the prescription label you receive. Additional information may be provided by the Pharmacy. If you have questions afterwards, call the ED for clarification or further instructions. Some prescribed medications may cause drowsiness. Do not perform tasks such as driving a car or operating machinery without consulting your Pharmacist. If you feel you need a refill of pain medication, your condition will need re-evaluation. Please do not call for a refill of any medication. ABOUT YOUR SIGNATURE: Signature of this document acknowledges to followin. Understanding that you received emergency treatment and that you may be released before al medical problems are known or treated. Please be certain the ED has a correct phone number & address where you can be reached. 2. Acknowledgement that you will arrange for follow-up care as recommended. 3. Authorization for the Emergency Physician to provide information to your follow-up Physician in order to maximize your care. AT ANY TIME, IF YOUR SYMPTOMS CHANGE SIGNIFICANTLY OR WORSEN OR YOU DEVELOP NEW SYMPTOMS, RETURN TO THE EMERGENCY DEPARTMENT IMMEDIATELY FOR RE-EVALUATION. OUR GOAL IS TO PROVIDE EXCELLENT MEDICAL CARE! WE HOPE THAT WE HAVE MET YOUR EXPECTATIONS DURING YOUR EMERGENCY DEPARTMENT VISIT AND THAT YOU FEEL YOU HAVE RECEIVED EXCELLENT CARE! Prescriptions: Cephalexin Monohydrate [Keflex 500 mg Capsule] 500 mg PO Q6H 7 Days #28 capsule I personally performed the services described in the documentation, reviewed and edited the documentation which was dictated to the scribe in my presence, and it accurately records my words and actions.
[2019-08-11 03:43] VITALS: BP 161/73
== END 2019-08-11 03:43 | disposition home or self-care (01) ==
LOC: ER 01:13
DX: S90.822A Blister (nonthermal), left foot, initial encounter (principal); X58.XXXA Exposure to other specified factors, initial encounter; E11.9 Type 2 diabetes mellitus without complications; I10 Essential (primary) hypertension; Z79.899 Other long term (current) drug therapy
CPT/HCPCS: 99283; 87070; 87205; 87077; 87186; A9270; J3490

== ENCOUNTER 2019-12-31 14:43 | Emergency (ER) | payer MEDICARE ==
[2019-12-31 15:35] LABS: ABSOLUTE BASOPHILS # (AUTO) 0.1 10^3/uL (0.0-0.2); ABSOLUTE EOSINOPHILS # (AUTO) 0.2 10^3/uL (0.0-0.6); ABSOLUTE LYMPHOCYTES (AUTO) 1.4 10^3/uL (0.5-4.7); ABSOLUTE MONOCYTES (AUTO) 0.6 10^3/uL (0.1-1.4); ABSOLUTE NEUT (AUTO) 3.7 10^3/uL (1.7-8.2); BASOPHILS % (AUTO) 0.9 % (0-2); EOSINOPHILS % (AUTO) 2.6 % (0-6); HEMATOCRIT 37.1 % (37.9-51.0); HEMOGLOBIN 12.8 g/dL (13.5-17.0); LYMPHOCYTES % (AUTO) 23.6 % (13-45); MEAN CORPUSCULAR HEMOGLOBIN 31.2 pg (27.0-33.4); MEAN CORPUSCULAR HGB CONC 34.5 g/dL (32.0-36.0); MEAN CORPUSCULAR VOLUME 90 fl (80-97); MONOCYTES % (AUTO) 10.5 % (3-13); PLATELET COUNT 241 10^3/uL (150-450); RED CELL DISTRIBUTION WIDTH 13.7 % (11.5-14.0); SEGMENTED NEUTROPHILS % (AUTO) 62.4 % (42-78); TOTAL CELLS COUNTED % (AUTO) 100 %
[2019-12-31 15:59] LABS: ALKALINE PHOSPHATASE 90 U/L (38-126); ANION GAP 12 (5-19); ASPARTATE AMINO TRANSFERASE 28 U/L (17-59); BILIRUBIN,DIRECT 0.3 mg/dL (0.0-0.4); BILIRUBIN,TOTAL 0.6 mg/dL (0.2-1.3); BLOOD UREA NITROGEN 21 mg/dL (7-20); CALCIUM 9.5 mg/dL (8.4-10.2); CARBON DIOXIDE 28 mmol/L (22-30); CHLORIDE 101 mmol/L (98-107); GLUCOSE 103 mg/dL (75-110); POTASSIUM 3.9 mmol/L (3.6-5.0)
[2019-12-31 16:00] LABS: ALCOHOL < 10 mg/dL (NONE DETECTED)
--- NOTE | 2019-12-31 16:27 | ER Document Report ---
ED General - General Stated Complaint: ALTERED MENTAL STATUS Time Seen by Provider: 12/31/19 15:58 Mode of Arrival: Medic Information source: Transfer Record, Emergency Med Personnel Notes: 12/31/19 15:24 - ED Nursing Note by WALT REGAN Num: [id number] : 1945 Patient Age: 74 patient arrives via ems with a complaint of altered mental status. ems states the patient is a resident of [facility]. ems states staff at [facility] states the patient was altered, and had a change in his gait. ems also states that the patient has wounds to his ankles that there may be concerns for infection. patient has a hx alzheimers with aggression. on arrival, patient is cooperative. patient placed on cardiac monitors. 18g iv placed to the left ac. cultures and labs obtained. patient noted to have multiple blisters on both ankles, some fluid filled. dressings removed from blisters to inspect. call placed to [facility] for further information. this RN spoke to the patients [employer], who states she is who initiated the transfer of the patient to the er. med tech states she was not his nurse this past weekend returned today and noticed a change from his baseline. med tech states the patient is usually ambulatory without assistance, but today he has been having to hold on to chairs when walking and "looked lightheaded" med tech states the patient had several near falls. med tech states the patient started having a shuffling gait and had a "blank look" med tech states the blisters on the patients ankles "just appeared" med tech states the patient has difficulty going from a sitting to a standing position. patient breaths e/u. patient follows commands but is unable to answer questions appropriately. patient states "hurt" but cannot verbalize where his pain is located. MY NOTES 74-year-old male history of Alzheimer's disease arrives because of aggressive behavior. He has not exhibited any aggressive behavior here neither to myself nor to nursing staff. He has multiple maculopapular lesions over his arms and legs which are being treated with ivermectin. He also has been treated with bacitracin for right forearm skin lesion covered with a Band-Aid and left foot skin blebs x2 approximately 3 cm diameter. 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 He mumbles few words but stares from myself to the nurse and surrounding area. TRAVEL OUTSIDE OF THE [place] IN LAST 30 DAYS: No - Related Data Allergies/Adverse Reactions: No Known Allergies Allergy (Verified 09/17/18 23:25) Past Medical History - General Information source: Patient - Social History Smoking Status: Unknown if Ever Smoked Cigarette use (# per day): No Chew tobacco use (# tins/day): No Smoking Education Provided: No Frequency of alcohol use: None Drug Abuse: None Lives with: Family Family History: Reviewed & Not Pertinent, Other - Patient states he does not know his family history he left home when he was 19 did not know it before then and never went back home now they're both he is an only child. - Past Medical History Cardiac Medical History: Reports: Hx Hypercholesterolemia, Hx Hypertension Denies: Hx Atrial Fibrillation, Hx Congestive Heart Failure, Hx Heart Attack Endocrine Medical History: Reports: Hx Diabetes Mellitus Type 2 Renal/ Medical History: Denies: Hx Peritoneal Dialysis Malignancy Medical History: Musculoskeletal Medical History: Reports Hx Arthritis, Denies Hx Systemic Lupus Erythematosus Psychiatric Medical History: Reports: Hx Dementia Infectious Medical History: Past Surgical History: Reports: Hx Appendectomy, Hx Orthopedic Surgery - left hip replacement, Hx Tonsillectomy. Denies: Hx Cholecystectomy - Immunizations Hx Diphtheria, Pertussis, Tetanus Vaccination: Yes Hx Pneumococcal Vaccination: 04/25/14 Review of Systems - Review of Systems Constitutional: No symptoms reported EENT: No symptoms reported Cardiovascular: No symptoms reported Respiratory: No symptoms reported Gastrointestinal: No symptoms reported Genitourinary: No symptoms reported Male Genitourinary: No symptoms reported Musculoskeletal: No symptoms reported Skin: No symptoms reported Hematologic/Lymphatic: No symptoms reported Neurological/Psychological: No symptoms reported Physical Exam - Vital signs Vitals: Temp Pulse Ox 98.5 F 98 12/31/19 15:18 12/31/19 15:18 - HEENT Head: Normocephalic, Atraumatic Eyes: Normal Pupils: PERRL - Respiratory Respiratory status: No respiratory distress - Cardiovascular Rhythm: Regular Heart sounds: Normal auscultation Murmur: No - Abdominal Inspection: Normal - Rectal Tenderness: No - Genitourinary Tenderness: Nontender Scrotum: Normal - Back Back: Normal - Extremities General upper extremity: Normal inspection, Other - Except for skin lesions General lower extremity: Normal inspection, Other - Except for skin lesions - Neurological Cognition: Confused [place] Coma Scale Eye Opening: To Voice [place] Coma Scale Verbal: Confused Motor strength normal: LUE, RUE, LLE, RLE - Psychological Associated symptoms: Confused - Skin Character of irregularity: Maculopapular - Diffuse maculopapular rash over forearms and legs these appear to be folliculitis. I suspect this is why he is on ivermectin. He also has a right forearm furuncle and skin bulla on the left lateral malleolus. Course - Vital Signs Vital signs: Temp Pulse Resp BP Pulse Ox 98.5 F 98 12/31/19 15:18 12/31/19 15:18 - Laboratory Result Diagrams: 12/31/19 15:02 12/31/19 15:02 Laboratory results interpreted by me: 12/31/19 12/31/19 15:02 15:02 RBC 4.10 L Hgb 12.8 L Hct 37.1 L BUN 21 H - Diagnostic Test Radiology reviewed: Reports reviewed Discharge - Discharge Clinical Impression: Pyogenic skin abscess due to bacteria Dementia Qualifiers: Dementia type: Alzheimer's disease Alzheimer's disease onset: unspecified onset Dementia behavioral disturbance: with behavioral disturbance Qualified Code(s): G30.9 - Alzheimer's disease, unspecified; F02.81 - Dementia in other diseases classified elsewhere with behavioral disturbance Condition: Fair Disposition: HOME, SELF-CARE Instructions: Trimethoprim-Sulfa ([facility]) Additional Instructions: Keep skin clean and dry. Wash skin daily with Hibiclens soap and pat dry. Apply Bactroban to affected skin lesions. May also use ivermectin as directed. Continue with antibiotics as directed. Prescriptions: Sulfamethoxazole/Trimethoprim [Bactrim Ds Tablet] 1 tab PO BID #20 tablet Cephalexin Monohydrate [Keflex 500 mg Capsule] 500 mg PO BID 5 Days #20 capsule
--- NOTE | 2019-12-31 16:30 | RADIOLOGY REPORT (SQ) ---
EXAM DESCRIPTION: CHEST SINGLE VIEW IMAGES COMPLETED DATE/TIME: 12/31/2019 4:17 pm REASON FOR STUDY: loc COMPARISON: 09/17/2018. FINDINGS: One-view chest AP portable upright. Normal study with clear lungs and normal cardiomediastinal silhouette. No pneumothorax. Bones intac t. TECHNICAL DOCUMENTATION: JOB ID: [id number] Reading location - IP/workstation name: [email or web address]
--- NOTE | 2019-12-31 17:06 | RADIOLOGY REPORT (SQ) ---
EXAM DESCRIPTION: CT HEAD WITHOUT IMAGES COMPLETED DATE/TIME: 12/31/2019 4:53 pm REASON FOR STUDY: loc COMPARISON: 12/12/2018 TECHNIQUE: Axial images acquired through the brain without intravenous contrast. Images reviewed wi th bone, brain and subdural windows. Additional sagittal and coronal reconstructions were generated. Images stored on PACS. All CT scanners at this facility use dose modulation, iterative reconstruction, and/or weight based d osing when appropriate to reduce radiation dose to as low as reasonably achievable (ALARA). [facility]: Dose Right [facility]: CareDose [facility]: Dose Right [facility]: Teradose 4D [facility]: Smart Technologies RADIATION DOSE: CT Rad equipment meets quality standard of care and radiation dose reduction techniq ues were employed. CTDIvol: 55.2 mGy. DLP: 1112 mGy-cm. mGy. LIMITATIONS: None. FINDINGS: VENTRICLES: Normal size and contour. CEREBRUM: Mild cortical atrophy. No masses. No hemorrhage. No midline shift. No evidence for acut e infarction. Few scattered areas of low density in the white matter most likely chronic small vessel ischemic changes. CEREBELLUM: No masses. No hemorrhage. No alteration of density. No evidence for acute infarction. EXTRAAXIAL SPACES: No fluid collections. No masses. ORBITS AND GLOBE: No intra- or extraconal masses. Normal contour of globe without masses. CALVARIUM: No fracture. PARANASAL SINUSES: No fluid or mucosal thickening. SOFT TISSUES: No mass or hematoma. OTHER: No other significant finding. IMPRESSION: Mild involutional changes and chronic microvascular ischemia. No acute intracranial magy ging findings. EVIDENCE OF ACUTE STROKE: NO. COMMENT: Quality ID # [id number]: Final reports with documentation of one or more dose reduction techniques (e.g., Automated exposure control, adjustment of the mA and/or kV according to patient size, use of iterative reconstruction technique) TECHNICAL DOCUMENTATION: JOB ID: [id number] 2010 [employer]- All Rights Reserved Reading location - IP/workstation name: [email or web address]
[2019-12-31] MEDS ORDERED: CEPHALEXIN 500 MG CAPSULE PO ONE (19:10)
[2019-12-31] MEDS ORDERED: SULFAMETHOXAZOLE/TRIMETHOPRIM 800-160 MG TABLET PO ONE (19:10)
[2019-12-31 19:36] VITALS: BP 175/82
--- NOTE | 2020-01-01 08:49 | EKG REPORT ---
SEVERITY:- ABNORMAL ECG - SINUS RHYTHM ATRIAL PREMATURE COMPLEX SINUS PAUSE/ARREST WITH ATRIAL ESCAPE RIGHT BUNDLE BRANCH BLOCK : Confirmed by: Remington Muir MD 01-Jan-2020 08:48:47
== END 2019-12-31 19:30 | disposition home or self-care (01) ==
LOC: ER 14:43
DX: L73.9 Follicular disorder, unspecified (principal); G30.9 Alzheimer's disease, unspecified; F02.81 Dementia in other diseases classified elsewhere, unspecified severity, with behavioral disturbance; L02.416 Cutaneous abscess of left lower limb; E78.00 Pure hypercholesterolemia, unspecified; I10 Essential (primary) hypertension; E11.9 Type 2 diabetes mellitus without complications; Z96.642 Presence of left artificial hip joint
CPT/HCPCS: 93005; 99285; 36415; 87070; 87205; 80307; 82550; 83735; 85025; 87077; 80053; 84484; 71045; 70450; 93010; A9270 ×2; 87186

== ENCOUNTER 2020-02-02 14:43 | Inpatient (IN) | payer MEDICARE ==
--- NOTE | 2020-02-02 15:20 | RADIOLOGY REPORT (SQ) ---
EXAM DESCRIPTION: CHEST SINGLE VIEW IMAGES COMPLETED DATE/TIME: 02/02/2020 3:06 pm REASON FOR STUDY: chest pain COMPARISON: 12/31/2019 TECHNIQUE: Single frontal radiographic view of the chest acquired. NUMBER OF VIEWS: One view. LIMITATIONS: None. FINDINGS: LUNGS AND PLEURA: No pneumothorax. Left medial basilar patchy airspace opacities. No sig nificant Pleural effusion. MEDIASTINUM AND HILAR STRUCTURES: Stable. HEART AND VASCULAR STRUCTURES: Stable. BONES: No acute findings. HARDWARE: None in the chest. OTHER: No other significant finding. IMPRESSION: Left medial basilar patchy airspace opacities. TECHNICAL DOCUMENTATION: JOB ID: [id number] [id number] 2010 [employer]- All Rights Reserved Reading location - IP/workstation name: [email or web address]
[2020-02-02 15:26] LABS: ABSOLUTE EOSINOPHILS # (AUTO) 0.1 10^3/uL (0.0-0.6); ABSOLUTE MONOCYTES (AUTO) 0.5 10^3/uL (0.1-1.4); ABSOLUTE NEUT (AUTO) 7.1 10^3/uL (1.7-8.2); BASOPHILS % (AUTO) 0.5 % (0-2); EOSINOPHILS % (AUTO) 0.9 % (0-6); HEMATOCRIT 34.1 % (37.9-51.0); HEMOGLOBIN 11.7 g/dL (13.5-17.0); LYMPHOCYTES % (AUTO) 11.6 % (13-45); MEAN CORPUSCULAR HGB CONC 34.4 g/dL (32.0-36.0); MEAN CORPUSCULAR VOLUME 90 fl (80-97); PLATELET COUNT 182 10^3/uL (150-450); RED BLOOD COUNT 3.79 10^6/uL (4.35-5.55); RED CELL DISTRIBUTION WIDTH 14.1 % (11.5-14.0); TOTAL CELLS COUNTED % (AUTO) 100 %; WHITE BLOOD COUNT 8.7 10^3/uL (4.0-10.5)
[2020-02-02] MEDS ORDERED: NORMAL SALINE 1000 ML 1,000 ML IV ONE ×3 (15:31→17:00)
--- NOTE | 2020-02-02 15:31 | ER Document Report ---
ED General - General Stated Complaint: BLOOD PRESSURE PROBLEMS Time Seen by Provider: 02/02/20 15:06 TRAVEL OUTSIDE OF THE [place] IN LAST 30 DAYS: No - HPI Notes: Patient is brought to the emergency department for evaluation from [place]. Entire history is obtained from EMS and outside records. Evidently per medics the patient was found "slumped over." They checked his blood pressure and found it to be low. Upon EMS arrival original left arm pressure was 44/20, right arm 60/20. Heart rate in the 50s and 40s. They did try a 500 cc normal saline bolus with little in the way of improvement, so Levophed drip was initiated at 4 mcg/min. No other additional history regarding present illness was communicated to medic, nursing, or myself. - Related Data Allergies/Adverse Reactions: No Known Allergies Allergy (Verified 09/17/18 23:25) Home Medications: Acetaminophen 650 mg twice daily, 81 mg aspirin daily, Ativan 0.5 mg as needed, Celebrex 200 mg daily, Flexeril 5 mg twice a day, Depakote extended release 125 mg at bedtime, Neurontin 300 mg 3 times daily, Humalog per sliding scale, lisinopril 40 mg daily, metoprolol ER 50 mg daily, hydr ochlorothiazide 12 and half milligrams daily, Risperdal 0.5 mg daily, Zoloft 25 mg daily, zinc, vitamin B1, vitamin C Past Medical History - General Information source: Emergency Med Personnel, Outside Facility Records - Social History Smoking Status: Unknown if Ever Smoked Family History: Reviewed & Not Pertinent, Other - Patient states he does not know his family history he left home when he was 19 did not know it before then and never went back home now they're both he is an only child. - Past Medical History Cardiac Medical History: Reports: Hx Hypercholesterolemia, Hx Hypertension Denies: Hx Atrial Fibrillation, Hx Congestive Heart Failure, Hx Heart Attack Endocrine Medical History: Reports: Hx Diabetes Mellitus Type 2 Renal/ Medical History: Denies: Hx Peritoneal Dialysis Malignancy Medical History: Musculoskeletal Medical History: Reports Hx Arthritis, Denies Hx Systemic Lupus Erythematosus Psychiatric Medical History: Reports: Hx Dementia - Alzheimer's Infectious Medical History: Past Surgical History: Reports: Hx Appendectomy, Hx Orthopedic Surgery - left hip replacement, Hx Tonsillectomy. Denies: Hx Cholecystectomy - Immunizations Hx Diphtheria, Pertussis, Tetanus Vaccination: Yes Hx Pneumococcal Vaccination: 04/25/14 Review of Systems - Review of Systems -: Yes ROS unobtainable due to patient's medical condition - Patient with limit ed communicative ability at baseline Physical Exam - Vital signs Vitals: Pulse Ox 92 02/02/20 15:59 - Notes Notes: This is a 74-year-old male who appears stated age, no acute distress. He is lying in a semi-lo's position, placed on the monitor. He has frequent PVCs noted. Head is normocephalic and appears atraumatic, pupils are equal and round, reactive to light. Oral mucosa is moist. Neck is supple without meningismus. Heart is regular rate and rhythm, lungs are clear to auscultation bilaterally. Examination of the chest wall yields some abrasions to the left of the midclavicular line approximately ribs 3 through 7, that extend to the anterior axillary line. No associated crepitance, chest wall excursion is equal bilaterally, but there does appear to be some tenderness. Abdomen is soft, nontender, normoactive bowel sounds. Extremities without cyanosis, clubbing. He does have 1+ pretibial pitting edema. Peripheral pulses are equal. Skin is warm and dry. Patient is awake and alert. He will intermittently follow directions. He moves all 4 extremities spontaneously. No gross facial asymmetry. Course - Re-evaluation Re-evalutation: 02/02/20 15:30 Patient presents to the emergency department for evaluation via EMS. He is on a Levophed drip upon arrival. He does seem to have some increased cardiac irritability secondary to this medication, and his blood pressures currently 132 systolic. Orders given to try to titrate off of this medication as tolerated. Otherwise laboratory investigations, including septic work-up, are initiated. Will administer more fluids, will review chart history to see if any significant congestive heart failure history exists. Patient is currently stable, we will continue to monitor. 02/02/20 17:21 Patient's blood pressure has stabilized. He has been given IV fluids at a sepsis bolus rate. His chest x-ray shows a left medial/basilar opacity consistent with pneumonia. Given his borderline oxygen I do believe this to clinically correlate. Patient was treated with Rocephin and Zithromax. I spoke with Dr. Jean Paul. She has had a COVID test be performed and this order was placed. The patient will be admitted to [facility] [place] further care. - Vital Signs Vital signs: Temp Pulse Resp BP Pulse Ox 92 02/02/20 15:59 - Laboratory Result Diagrams: 02/02/20 15:10 02/02/20 15:10 Laboratory results interpreted by me: 02/02/20 02/02/20 02/02/20 15:10 15:10 16:40 RBC 3.79 L Hgb 11.7 L Hct 34.1 L RDW 14.1 H Lymph % (Auto) 11.6 L Seg Neutrophils % 81.0 H Sodium 135.4 L Glucose 198 H Urine Protein 100 H Urine Urobilinogen 4.0 H Urine Ascorbic Acid 40 H - Diagnostic Test Radiology reviewed: Reports reviewed Radiology results interpreted by me: 02/02/20 17:22 Chest X-Ray 02/02/20 14:50 IMPRESSION: Left medial basilar patchy airspace opacities. - EKG Interpretation by Me Additional EKG results interpreted by me: 02/02/20 15:34 Sinus tachycardia with a rate of 101 bpm, frequent multifocal PVCs noted. Mild right axis, right bundle branch block. Other than frequent PVCs, largely unchanged from prior study of 12/31/2019 Discharge - Discharge Clinical Impression: Pneumonia Qualifiers: Pneumonia type: due to unspecified organism Laterality: left Lung location: lower lobe of lung Qualified Code(s): J18.9 - Pneumonia, unspecified organism Condition: Stable Disposition: ADMITTED INPATIENT Admitting Provider: Jean Paul (Hospitalist) Unit Admitted: [facility]
[2020-02-02 15:43] LABS: ALBUMIN 3.6 g/dL (3.5-5.0); ALKALINE PHOSPHATASE 90 U/L (38-126); ANION GAP 9 (5-19); ASPARTATE AMINO TRANSFERASE 54 U/L (17-59); BILIRUBIN,DIRECT 0.4 mg/dL (0.0-0.4); BILIRUBIN,TOTAL 0.7 mg/dL (0.2-1.3); BLOOD UREA NITROGEN 18 mg/dL (7-20); CALCIUM 8.8 mg/dL (8.4-10.2); CARBON DIOXIDE 27 mmol/L (22-30); CHLORIDE 99 mmol/L (98-107); CREATINE KINASE 59 U/L (55-170); GLUCOSE 198 mg/dL (75-110); TOTAL PROTEIN 6.4 g/dL (6.3-8.2)
[2020-02-02 15:54] LABS: CREATINE KINASE MB 1.48 ng/mL (<4.55)
[2020-02-02 15:55] LABS: TROPONIN I < 0.012 ng/mL
[2020-02-02 17:08] LABS: APPEARANCE,URINE SLIGHTLY-CLOUDY; BILIRUBIN,URINE NEGATIVE (NEGATIVE); COLOR,URINE AMBER; GLUCOSE, URINE NEGATIVE (NEGATIVE); KETONES,URINE NEGATIVE (NEGATIVE); LEUKOCYTE ESTERASE,URINE NEGATIVE (NEGATIVE); NITRITE,URINE NEGATIVE (NEGATIVE); PROTEIN,URINE 100 mg/dL (NEGATIVE); URINE SPECIFIC GRAVITY 1.017
[2020-02-02] MEDS ORDERED: CEFTRIAXONE 1 GM/D5W RTU 1 GM/50 ML RTUPB IV ONE (17:12)
[2020-02-02] MEDS ORDERED: AZITHROMYCIN INJ 500 MG VIAL IV ONE (17:12)
[2020-02-02] MEDS ORDERED: DEXTROSE 5%-WATER 250 ML with NOREPINEPHRINE BITARTRATE 4 MG IV PRN ×2 (17:49)
[2020-02-02] MEDS ORDERED: ONDANSETRON HCL INJ/PF 4 MG/2 ML SDV IV PRN (18:15)
[2020-02-02] MEDS ORDERED: LEVALBUTEROL HCL NEB 0.63 MG/3 ML AMPUL NEB PRN (18:15)
--- NOTE | 2020-02-02 18:48 | PDOC H&P ---
History of Present Illness Admission Date/PCP: 02/02/2020 Patient complains of: AMS History of Present Illness: Mr. DAVID SANTANA is a 74 year old [place] with PMH of dementia with behavioral disturbance, HTN, DM2, osteoarthritis who presented from [facility] with AMS. History gathered from staff at his [facility] and his daughter/POA, Angela. He appeared to be in his usual state of health today. Right after lunch, he took a nap. After his nap, he walked out and sat in the common area, where he "suddenly slumped over" and became less responsive than usual. He did not have LOC. He became pale and clammy, and EMS was called. EMS found him to be hypotensive and brought him to the ED. At baseline, he doesn't "speak" per se, but he does mumble, although sometimes incoherently. He is disoriented and frequently does not recognize family. He walks independently and is physically quite strong. He does have recent onset of decreased appetite and oral intake, and has lost 10 pounds in the last 4-6 weeks. He has had no sick contacts. No recent travel. No known fevers, cough, SOB, CP, or abdominal pain. He has a tendency to "pick at his skin" and gets bacitracin to multiple superficial skin lesions as well as a foot blister, but none of them have looked infected recently. No recent antibiotic usage. He is not tested regularly at his facility, but they also do not allow visitors there. Upon initial presentation to the ED, BP was 60/40 and he was initiated on Levophed. His BP improved dramatically after several IVF boluses and Levophed was discontinued. Past Medical History Cardiac Medical History: Reports: Hyperlipidema, Hypertension Denies: Atrial Fibrillation, Congestive Heart Failure, Myocardial Infarction Neurological Medical History: Reports: Other - dementia Endocrine Medical History: Reports: Diabetes Mellitus Type 2 Malignancy Medical History: Musculoskeltal Medical History: Reports: Arthritis Skin Medical History: Reports: Other - blister on foot Psychiatric Medical History: Reports: Dementia - Alzheimer's Hematology: Infectious Medical History: Past Surgical History Past Surgical History: Reports: Appendectomy, Orthopedic Surgery - left hip replacement, Tonsillectomy Denies: Cholecystectomy Social History Information Source: Relative Lives with: Other - [facility] Smoking Status: Unknown if Ever Smoked Frequency of Alcohol Use: None Hx Recreational Drug Use: No Hx Prescription Drug Abuse: No - Advance Directive Resuscitation Status: Do Not Resuscitate Surrogate healthcare decision maker:: Angela Justice (daughter) Family History Family History: Reviewed & Not Pertinent, Other - Patient states he does not know his family history he left home when he was 19 did not know it before then and never went back home now they're both he is an only child. Parental Family History Reviewed: Yes Children Family History Reviewed: Yes Sibling(s) Family History Reviewed.: Yes Medication/Allergy Home Medications: Aspirin [Ecotrin 81 mg EC Tablet] 81 mg PO DAILY 01/10/17 Atorvastatin Calcium [Lipitor 20 mg Tablet] 20 mg PO QHS 01/10/17 Celecoxib [Celebrex 200 mg Capsule] 200 mg PO DAILY 01/10/17 Gabapentin [Neurontin 300 mg Capsule] 300 mg PO Q8 01/10/17 Hydrochlorothiazide [Hydrodiuril 12.5 mg Tablet] 12.5 mg PO DAILY 01/10/17 Lisinopril [Prinivil 40 mg Tablet] 40 mg PO DAILY 01/10/17 Metoprolol Succinate [Toprol Xl 50 mg Tab.sr] 50 mg PO DAILY 01/10/17 Sitagliptin Phos/Metformin HCl [Janumet 50-1,000 mg Tablet] 1 tab PO BID 01/10/17 Cetirizine HCl [Zyrtec] 10 mg PO DAILYP PRN 08/22/17 Folic Acid 1 mg PO DAILY 08/22/17 Thiamine HCl 100 mg PO DAILY 08/22/17 Cyclobenzaprine HCl [Flexeril 10 mg Tablet] 10 mg PO Q8HP PRN 08/29/17 Cephalexin Monohydrate [Keflex 500 mg Capsule] 500 mg PO Q6H 7 Days #28 capsule 08/11/19 Cephalexin Monohydrate [Keflex 500 mg Capsule] 500 mg PO BID 5 Days #20 capsule 12/31/19 Sulfamethoxazole/Trimethoprim [Bactrim Ds Tablet] 1 tab PO BID #20 tablet 0 12/31/19 Allergies/Adverse Reactions: No Known Allergies Allergy (Verified 09/17/18 23:25) Review of Systems ROS unobtainable: Due to mental status Physical Exam Vital Signs: Temp Pulse Resp BP Pulse Ox 92 02/02/20 15:59 Intake & Output 02/01/20 02/02/20 02/03/20 06:59 06:59 06:59 Weight 86.9 kg General appearance: PRESENT: no acute distress Head exam: PRESENT: atraumatic Eye exam: ABSENT: conjunctiva pale, scleral icterus Mouth exam: PRESENT: dry mucosa Throat exam: ABSENT: post pharyngeal erythema Neck exam: ABSENT: JVD Respiratory exam: PRESENT: clear to auscultation luis, unlabored. ABSENT: crackles, rhonchi, wheezes Cardiovascular exam: PRESENT: RRR GI/Abdominal exam: PRESENT: normal bowel sounds, soft. ABSENT: distended, firm, guarding, rebound, rigid, tenderness Rectal exam: PRESENT: deferred Extremities exam: ABSENT: joint swelling, pedal edema Neurological exam: PRESENT: altered Psychiatric exam: PRESENT: flat affect Skin exam: PRESENT: other - L foot blister w/o surrounding erythema/induration and w/o pus Results Laboratory Results: 02/02/20 15:10 02/02/20 15:10 02/02/20 02/02/20 02/02/20 15:10 15:10 16:40 WBC 8.7 RBC 3.79 L Hgb 11.7 L Hct 34.1 L MCV 90 MCH 31.0 MCHC 34.4 RDW 14.1 H Plt Count 182 Seg Neutrophils % 81.0 H Sodium 135.4 L Potassium 4.0 Chloride 99 Carbon Dioxide 27 Anion Gap 9 BUN 18 Creatinine 0.93 Est GFR ( Amer) > 60 Glucose 198 H Lactic Acid 1.3 Calcium 8.8 Total Bilirubin 0.7 AST 54 Alkaline Phosphatase 90 Total Protein 6.4 Albumin 3.6 Urine Color Urine Appearance Urine pH Ur Specific [place] Urine Protein Urine Glucose (UA) Urine Ketones Urine Blood Urine Nitrite Ur Leukocyte Esterase Urine WBC (Auto) Urine RBC (Auto) 02/02/20 16:40 WBC RBC Hgb Hct MCV MCH MCHC RDW Plt Count Seg Neutrophils % Sodium Potassium Chloride Carbon Dioxide Anion Gap BUN Creatinine Est GFR ( Amer) Glucose Lactic Acid Calcium Total Bilirubin AST Alkaline Phosphatase Total Protein Albumin Urine Color RC Urine Appearance SLIGHTLY-CLOUDY Urine pH 6.0 Ur Specific [place] 1.017 Urine Protein 100 H Urine Glucose (UA) NEGATIVE Urine Ketones NEGATIVE Urine Blood NEGATIVE Urine Nitrite NEGATIVE Ur Leukocyte Esterase NEGATIVE Urine WBC (Auto) 1 Urine RBC (Auto) 4 02/02/20 02/02/20 15:10 15:10 Creatine Kinase 59 CK-MB (CK-2) 1.48 Troponin I < 0.012 Impressions: Chest X-Ray 02/02/20 14:50 IMPRESSION: Left medial basilar patchy airspace opacities. Assessment and Plan - Diagnosis (1) Acute metabolic encephalopathy Is this a current diagnosis for this admission?: Yes (2) Hypotension due to hypovolemia Is this a current diagnosis for this admission?: Yes (3) Dehydration Is this a current diagnosis for this admission?: Yes (4) Dementia with behavioral disturbance Qualifiers: Dementia type: Alzheimer's disease Alzheimer's disease onset: unspecified onset Qualified Code(s): G30.9 - Alzheimer's disease, unspecified; F02.81 - Dementia in other diseases classified elsewhere with behavioral disturbance Is this a current diagnosis for this admission?: Yes (5) DM2 (diabetes mellitus, type 2) Qualifiers: Diabetes mellitus long term care social worker insulin use: with fpc use Diabetes mellitus complication status: with neurologic complications Diabetes mellitus complication detail: with polyneuropathy Qualified Code(s): E11.42 - Type 2 diabetes mellitus with diabetic polyneuropathy; Z79.4 - watermaster (current) use of insulin Is this a current diagnosis for this admission?: Yes (6) Orthostatic syncope Is this a current diagnosis for this admission?: Yes (7) Hypertension Qualifiers: Hypertension type: essential hypertension Qualified Code(s): I10 - Essential (primary) hypertension Is this a current diagnosis for this admission?: Yes (8) Advance care planning Is this a current diagnosis for this admission?: Yes - Plan Summary Summary: Mr. DAVID SANTANA is a 74 year old [place] with PMH of dementia with behavioral disturbance, HTN, DM2, osteoarthritis who presented from [facility] with AMS. He appeared to be in his usual state of health today. Right after lunch, he took a nap. After his nap, he walked out and sat in the common area, where he "suddenly slumped over" and became less responsive than usual. He did not have LOC. He became pale and clammy, and EMS was called. EMS found him to be hypotensive and brought him to the ED. Upon initial presentation to the ED, BP was 60/40 and he was initiated on Levophed. His BP improved dramatically after several IVF boluses and Levophed was discontinued. At baseline, he doesn't "speak" per se, but he does mumble, although sometimes incoherently. He is disoriented and frequently does not recognize family. He walks independently and is physically quite strong. He does have recent onset of decreased appetite and oral intake, and has lost 10 pounds in the last 4-6 weeks. Per the staff at his [facility] and his family, it sounds like he has been having progression of his underlying dementia over the last few months, and his appetite and oral intake have decreased as a result. He has not only been losing weight, but appears quite dehydrated on exam still after having received several IVF boluses. I suspect his presentation was due to orthostatic pre-syncope in the s/o hypovolemia. We will rule out infection of course, but his CXR is not impressive. He will need COVID testing given that he lives in a facility and AMS is sometimes the only presenting sign of COVID-19 in elderly, demented patients, although my concern for this is lower. I had an extensive and lengthy discussion with his daughter, Angela Justice, about his health and the progressive nature of dementia. She would like to make sure that any easily reversible illness is found and treated, but do not want him to be hospitalized for an extended period of time, or to undergo uncomfortable/confusing procedures and tests. Angela notes that his code status is DNR/DNI. She is interested in pursuing Hospice services at his [facility] to [facility] visits if possible. CM/SW consulted to pursue referral to hospice. With regards to his hypertension, we will hold his BP medications, which are likely contributing. We will need to discontinue his HCTZ given recent onset of decreased oral intake. Diuretics put him at increased risk for future similar episodes due to dehydration. He has a diagnosis of DM2 for which he gets insulin. Will check HbA1c. Hold off on insulin for now given our goals of care discussion above. If glucose is dramatically elevated, can start SSI. Patient's only complaint at this time is his bilateral hip pain, which he has at baseline. Restart home pain medications. Fall precautions. - Time Time Spent with patient: 35 or more minutes Anticipated Discharge Disposition: Assisted Living with Home Health Services Anticipated Discharge Timeframe: within 48 hours
--- NOTE | 2020-02-02 18:49 | ADVANCED CARE ---
- Diagnosis (1) Acute metabolic encephalopathy Diagnosis Current: Yes (2) Hypotension due to hypovolemia Diagnosis Current: Yes (3) Dehydration Diagnosis Current: Yes (4) Dementia with behavioral disturbance Diagnosis Current: Yes (5) DM2 (diabetes mellitus, type 2) Diagnosis Current: Yes (6) Orthostatic syncope Diagnosis Current: Yes (7) Hypertension Diagnosis Current: Yes (8) Advance care planning Diagnosis Current: Yes Resuscitation Status: Do Not Resuscitate Discussion: I had an extensive and lengthy discussion with his daughter, Angela Justice, about his overall health, recent hospitalizations, and the progressive nature of dementia. She would like to make sure that any easily reversible illness is found and treated, but does not want him to be hospitalized for an extended period of time, or to undergo uncomfortable/confusing procedures and tests. Angela notes that his code status is DNR/DNI. She is interested in pursuing Hospice services at his [facility] to minimize hospital visits if possible. CM/SW consulted to pursue referral to hospice. Time Spent: >30 minutes
[2020-02-02] MEDS ORDERED: CELECOXIB 200 MG CAPSULE PO ONE (19:00)
[2020-02-02] MEDS: NORMAL SALINE 1000 ML 1,000 ML IV PRN (19:15)
[2020-02-02] MEDS ORDERED: ASPIRIN 81 MG TABLET, CHEWABLE PO ONE (19:32)
[2020-02-02] MEDS: ACETAMINOPHEN 325 MG TABLET PO PRN (20:42)
[2020-02-02] MEDS: ENOXAPARIN SODIUM INJ 100 MG/1 ML DISP.SYRIN SUBCUT ONE ×2 (20:42→22:00)
[2020-02-02] MEDS: GABAPENTIN 300 MG CAPSULE PO SCH (20:43)
[2020-02-02] MEDS: CYCLOBENZAPRINE HCL 10 MG TABLET PO SCH (21:01)
[2020-02-02] MEDS: DIVALPROEX SODIUM 125 MG CAP.SPRINK PO SCH (21:02)
--- NOTE | 2020-02-02 21:56 | EKG REPORT ---
SEVERITY:- ABNORMAL ECG - SINUS RHYTHM RIGHT BUNDLE BRANCH BLOCK : Confirmed by: Cathy Anand MD 02-Feb-2020 21:55:36
--- NOTE | 2020-02-02 22:05 | EKG REPORT ---
SEVERITY:- ABNORMAL ECG - SINUS TACHYCARDIA PAIRED VENTRICULAR PREMATURE COMPLEXES RIGHT BUNDLE BRANCH BLOCK : Confirmed by: Cathy Anand MD 02-Feb-2020 22:04:33
[2020-02-03] MEDS: ENOXAPARIN SODIUM INJ 100 MG/1 ML DISP.SYRIN SUBCUT SCH ×2 (05:23→17:15)
[2020-02-03] MEDS: NORMAL SALINE 1000 ML 1,000 ML IV PRN ×2 (06:09→09:21)
[2020-02-03] MEDS: CELECOXIB 200 MG CAPSULE PO SCH (09:17)
[2020-02-03] MEDS: RISPERIDONE 0.25 MG TABLET PO SCH (09:17)
[2020-02-03] MEDS: ASPIRIN 81 MG TABLET, CHEWABLE PO SCH (09:17)
[2020-02-03] MEDS: SERTRALINE HCL 50 MG TABLET PO SCH (09:17)
[2020-02-03] MEDS: CYCLOBENZAPRINE HCL 10 MG TABLET PO SCH ×2 (09:17→21:25)
[2020-02-03] MEDS: ACETAMINOPHEN 325 MG TABLET PO SCH ×3 (09:17→17:10)
[2020-02-03] MEDS: GABAPENTIN 300 MG CAPSULE PO SCH ×3 (09:18→17:10)
[2020-02-03] MEDS ORDERED: ENOXAPARIN SODIUM INJ 40 MG/0.4 ML DISP.SYRIN SUBCUT SCH (10:00)
[2020-02-03 11:58] LABS: HEMOGLOBIN 11.5 g/dL (13.5-17.0); MEAN CORPUSCULAR HEMOGLOBIN 30.4 pg (27.0-33.4); MEAN CORPUSCULAR HGB CONC 33.7 g/dL (32.0-36.0); MEAN CORPUSCULAR VOLUME 90 fl (80-97); PLATELET COUNT 161 10^3/uL (150-450); RED BLOOD COUNT 3.77 10^6/uL (4.35-5.55); RED CELL DISTRIBUTION WIDTH 14.2 % (11.5-14.0); WHITE BLOOD COUNT 5.8 10^3/uL (4.0-10.5)
[2020-02-03] MEDS ORDERED: LORAZEPAM INJ 2 MG/1 ML VIAL IV PRN (12:01)
[2020-02-03 12:14] LABS: ANION GAP 7 (5-19); BLOOD UREA NITROGEN 11 mg/dL (7-20); CALCIUM 8.3 mg/dL (8.4-10.2); CARBON DIOXIDE 26 mmol/L (22-30); CHLORIDE 106 mmol/L (98-107); CHOLESTEROL 139.25 mg/dL (0-200); GLUCOSE 82 mg/dL (75-110); POTASSIUM 3.8 mmol/L (3.6-5.0); TRIGLYCERIDES 86 mg/dL (<150)
[2020-02-03 12:24] LABS: DIRECT LDL 85 mg/dL (<100)
[2020-02-03] MEDS ORDERED: CYCLOBENZAPRINE HCL 10 MG TABLET PO PRN (13:50)
--- NOTE | 2020-02-03 14:04 | PDOC PROGRESS REPORT ---
Subjective Progress Note for:: 02/03/20 Subjective:: NAEO. This morning, he is desaturating with minimal exertion. At rest, he is saturating 100% on 3L via NC. Reason For Visit: HYPOTENSION,ACUTE METABOLIC ENCEPHALOPATHY, Physical Exam Vital Signs: Temp Pulse Resp BP Pulse Ox 97.7 F 50 L 13 152/56 H 100 02/03/20 11:04 02/03/20 11:04 02/03/20 11:04 02/03/20 11:04 02/03/20 11:04 Intake & Output 02/02/20 02/03/20 02/04/20 06:59 06:59 06:59 Intake Total 3247 888 Output Total 550 Balance 2697 888 Weight 75.6 kg General appearance: PRESENT: no acute distress Eye exam: ABSENT: scleral icterus Mouth exam: PRESENT: moist Throat exam: ABSENT: post pharyngeal erythema Neck exam: ABSENT: JVD Respiratory exam: PRESENT: clear to auscultation luis, unlabored. ABSENT: accessory muscle use, crackles, retraction, rhonchi, stridor, tachypnea, wheezes Cardiovascular exam: PRESENT: RRR GI/Abdominal exam: PRESENT: normal bowel sounds, soft. ABSENT: tenderness Gentrourinary exam: ABSENT: indwelling catheter Extremities exam: ABSENT: pedal edema Neurological exam: PRESENT: altered, awake Psychiatric exam: PRESENT: flat affect Skin exam: ABSENT: rash Results Laboratory Results: 02/03/20 10:30 02/03/20 10:30 02/02/20 02/02/20 02/02/20 15:10 15:10 16:40 WBC 8.7 RBC 3.79 L Hgb 11.7 L Hct 34.1 L MCV 90 MCH 31.0 MCHC 34.4 RDW 14.1 H Plt Count 182 Seg Neutrophils % 81.0 H Sodium 135.4 L Potassium 4.0 Chloride 99 Carbon Dioxide 27 Anion Gap 9 BUN 18 Creatinine 0.93 Est GFR ( Amer) > 60 Glucose 198 H Lactic Acid 1.3 Calcium 8.8 Magnesium Total Bilirubin 0.7 AST 54 Alkaline Phosphatase 90 Total Protein 6.4 Albumin 3.6 Triglycerides Cholesterol LDL Cholesterol Direct VLDL Cholesterol HDL Cholesterol TSH Urine Color Urine Appearance Urine pH Ur Specific [place] Urine Protein Urine Glucose (UA) Urine Ketones Urine Blood Urine Nitrite Ur Leukocyte Esterase Urine WBC (Auto) Urine RBC (Auto) 02/02/20 02/03/20 02/03/20 16:40 10:30 10:30 WBC 5.8 RBC 3.77 L Hgb 11.5 L Hct 34.0 L MCV 90 MCH 30.4 MCHC 33.7 RDW 14.2 H Plt Count 161 Seg Neutrophils % Sodium 138.6 Potassium 3.8 Chloride 106 Carbon Dioxide 26 Anion Gap 7 BUN 11 Creatinine 0.52 Est GFR ( Amer) > 60 Glucose 82 Lactic Acid Calcium 8.3 L Magnesium 1.8 Total Bilirubin AST Alkaline Phosphatase Total Protein Albumin Triglycerides 86 Cholesterol 139.25 LDL Cholesterol Direct 85 VLDL Cholesterol 17.0 HDL Cholesterol 35 L TSH Urine Color RC Urine Appearance SLIGHTLY-CLOUDY Urine pH 6.0 Ur Specific [place] 1.017 Urine Protein 100 H Urine Glucose (UA) NEGATIVE Urine Ketones NEGATIVE Urine Blood NEGATIVE Urine Nitrite NEGATIVE Ur Leukocyte Esterase NEGATIVE Urine WBC (Auto) 1 Urine RBC (Auto) 4 02/03/20 02/03/20 10:30 10:30 WBC Cancelled RBC Cancelled Hgb Cancelled Hct Cancelled MCV Cancelled MCH Cancelled MCHC Cancelled RDW Cancelled Plt Count Cancelled Seg Neutrophils % Sodium Potassium Chloride Carbon Dioxide Anion Gap BUN Creatinine Est GFR ( Amer) Glucose Lactic Acid Calcium Magnesium Total Bilirubin AST Alkaline Phosphatase Total Protein Albumin Triglycerides Cholesterol LDL Cholesterol Direct VLDL Cholesterol HDL Cholesterol TSH 0.36 L Urine Color Urine Appearance Urine pH Ur Specific [place] Urine Protein Urine Glucose (UA) Urine Ketones Urine Blood Urine Nitrite Ur Leukocyte Esterase Urine WBC (Auto) Urine RBC (Auto) 02/02/20 02/02/20 02/02/20 15:10 15:10 18:25 Creatine Kinase 59 CK-MB (CK-2) 1.48 Troponin I < 0.012 0.540 NT-Pro-B Natriuret Pep 02/02/20 02/03/20 02/03/20 21:40 10:30 10:30 Creatine Kinase CK-MB (CK-2) Troponin I 0.776 0.295 NT-Pro-B Natriuret Pep 1500 H 02/03/20 10:30 Creatine Kinase 953 H CK-MB (CK-2) Troponin I NT-Pro-B Natriuret Pep Impressions: Chest X-Ray 02/02/20 14:50 IMPRESSION: Left medial basilar patchy airspace opacities. Assessment and Plan - Diagnosis (1) Acute metabolic encephalopathy Is this a current diagnosis for this admission?: Yes (2) Hypotension due to hypovolemia Is this a current diagnosis for this admission?: Yes (3) Dehydration Is this a current diagnosis for this admission?: Yes (4) Dementia with behavioral disturbance Qualifiers: Dementia type: Alzheimer's disease Alzheimer's disease onset: unspecified onset Qualified Code(s): G30.9 - Alzheimer's disease, unspecified; F02.81 - Dementia in other diseases classified elsewhere with behavioral disturbance Is this a current diagnosis for this admission?: Yes (5) DM2 (diabetes mellitus, type 2) Qualifiers: Diabetes mellitus custodial insulin use: with intermodal dispatcher use Diabetes mellitus complication status: with neurologic complications Diabetes mellitus complication detail: with polyneuropathy Qualified Code(s): E11.42 - Type 2 diabetes mellitus with diabetic polyneuropathy; Z79.4 - terminologist (current) use of insulin Is this a current diagnosis for this admission?: Yes (6) Orthostatic syncope Is this a current diagnosis for this admission?: Yes (7) Hypertension Qualifiers: Hypertension type: essential hypertension Qualified Code(s): I10 - Esse ntial (primary) hypertension Is this a current diagnosis for this admission?: Yes (8) Advance care planning Is this a current diagnosis for this admission?: Yes (9) NSTEMI (non-ST elevated myocardial infarction) Is this a current diagnosis for this admission?: Yes (10) ELENI (acute kidney injury) Is this a current diagnosis for this admission?: Yes - Plan Summary Summary: Mr. DAVID SANTANA is a 74 year old [place] [employer] with PMH of dementia with behavioral disturbance, HTN, HLD, DM2, osteoarthritis who presented on 02/02/2020 from [facility] with AMS. He appeared to be in his usual state of health on the day of admission but, right after lunch, he took a nap and, after his nap, he walked out and sat in the common area, where he "suddenly slumped over" and became less responsive than usual. He did not have LOC. He became pale and clammy, and EMS was called. EMS found him to be hypotensive and brought him to the ED. Upon initial presentation to the ED, BP was 60/40 and he was initiated on Levophed. His BP improved dramatically after several IVF boluses and Levophed was discontinued. At baseline, he doesn't "speak" per se, but he does mumble, although sometimes incoherently. He is disoriented and frequently does not recognize family. He walks independently and is physically quite strong. He does have recent onset of decreased appetite and oral intake and, per his LATOYA, he has lost 10 pounds in the last 4-6 weeks. Hypotension due to Hypovolemia: Per the staff at his [facility] and his family, it sounds like he has been having progression of his underlying dementia over the last few months, and his appetite and oral intake have decreased as a result. He has not only been losing weight, but appears quite dehydrated on exam still after having received several IVF boluses. I suspect his presentation was due to orthostatic pre-syncope in the s/o hypovolemia. We will rule out infection of course. He will need COVID testing given that he lives in a facility and AMS is sometimes the only presenting sign of COVID-19 in elderly, demented patients, although my concern for this is lower. - BCx x2 pending - UCx NGTD - Covid pending - CXR without clear evidence of an infiltrate Acute Hypoxemic Respiratory Failure: he has been having desaturations with minimal exertion, likely due to volume overload today given aggressive IVF hydration yesterday. Will hold IVF for now. I am also concerned for possible PE given his presentation which was quite sudden onset, with hypotension and now hypoxemia. - already on therapeutic dose Lovenox - CTA Chest to rule out PE NSTEMI, type 2: on presentation, troponin was undetectable and EKG showed no ischemic changes. He is demented and therefore a poor historian, but he is able to point to his hips when I ask him about pain, and denies chest pain on repeated asking. Repeat EKG still without ischemic changes and troponin down-jadon nding. NSTEMI was likely due to hypotension/hypovolemia. - continue ASA, high intensity statin - telemetry - no need to trend troponin further ELENI/ATN: due to hypotension/hypovolemia, now resolved and kidney function is at baseline Essential HTN: hold his BP medications. Will need to discontinue HCTZ altogether given recent onset of decreased oral intake. Diuretics put him at increased risk for future similar episodes due to dehydration. Prior history of DM2: HbA1c 5.6% and glucose well controlled. - he has no need for insulin therapy, which will be discontinued Chronic Pain due to OA: Patient's only complaint is bilateral hip pain, which he has at baseline. Restart home pain medications. Fall precautions. Abnormal TSH - add on FT4 Goals of Care: I had an extensive and lengthy discussion with his daughter, Angela Justice, about his health and the progressive nature of dementia. She would like to make sure that any easily reversible illness is found and treated, but do not want him to be hospitalized for an extended period of time, or to undergo uncomfortable/confusing procedures and tests. Code Status: DNR/DNI - Time Time Spent with patient: 35 or more minutes Anticipated Discharge Disposition: [facility] Anticipated Discharge Timeframe: within 48 hours
--- NOTE | 2020-02-03 14:34 | RADIOLOGY REPORT (SQ) ---
EXAM DESCRIPTION: CTA CHEST IMAGES COMPLETED DATE/TIME: 02/03/2020 1:56 pm REASON FOR STUDY: rule out PE COMPARISON: None. TECHNIQUE: CT scan of the chest performed using helical scanning technique with dynamic intravenous contrast injection. Images reviewed with lung, soft tissue and bone windows. Reconstructed coronal and sagittal MPR images reviewed. Additional 3 dimensional post-processing performed to develop Maximal Intensity Projection images (HI P). All images stored on PACS. All CT scanners at this facility use dose modulation, iterative reconstruction, and/or weight based d osing when appropriate to reduce radiation dose to as low as reasonably achievable (ALARA). [facility]: Dose Right [facility]: CareDose [facility]: Dose Right [facility]: Teradose 4D [facility]: [employer] CONTRAST TYPE AND DOSE: contrast/concentration: Isovue 350.00 mmol/ml; Total Contrast Delivered: 65. 0 ml; Total Saline Delivered: 80.0 ml Contrast bolus optimized for the pulmonary arteries. Not diagnostic for the aorta RENAL FUNCTION: GFR > 60. RADIATION DOSE: CT Rad equipment meets quality standard of care and radiation dose reduction techniq ues were employed. CTDIvol: 31.2 - 33.1 mGy. DLP: 1095 mGy-cm. . LIMITATIONS: None. FINDINGS: LUNGS AND PLEURA: No pneumothorax. Bilateral posterior lower lobe confluent airspace opac ities -atelectasis and small pleural effusions. AORTA AND GREAT VESSELS: No aneurysm. Contrast bolus not optimized for the aorta. HEART: No pericardial effusion. Moderate coronary artery calcifications. PULMONARY ARTERIES: No emboli visualized in the main pulmonary arteries or the segmental branches. HILAR AND MEDIASTINAL STRUCTURES: No identified masses or abnormal nodes. HARDWARE: None in the chest. UPPER ABDOMEN: No acute findings. Limited exam. THYROID AND OTHER SOFT TISSUES: No masses. No adenopathy. BONES: No acute or significant finding. 3D MIPS: Confirm above findings. OTHER: No other significant finding. IMPRESSION: No emboli visualized in the main pulmonary arteries or the segmental branches.Bilateral posterior lower lobe confluent airspace opacities -atelectasis and small pleural effusions. COMMENT: Quality ID # [id number]: Final reports with documentation of one or more dose reduction techniques (e.g., Automated exposure control, adjustment of the mA and/or kV according to patient size, use of iterative reconstruction technique) TECHNICAL DOCUMENTATION: JOB ID: [id number] [place]-72 2010 [employer] All Rights Reserved Reading location - IP/workstation name: [email or web address]
[2020-02-03] MEDS ORDERED: FUROSEMIDE 20 MG TABLET PO ONE (16:00)
[2020-02-03] MEDS: PANTOPRAZOLE SODIUM 40 MG TABLET.DR PO SCH (17:10)
[2020-02-03] MEDS ORDERED: CEFTRIAXONE 1 GM/D5W RTU 1 GM/50 ML RTUPB IV SCH (18:00)
[2020-02-03] MEDS ORDERED: AZITHROMYCIN 500 MG in DEXTROSE 5%-WATER 250 ML IV SCH (18:00)
[2020-02-03] MEDS: DIVALPROEX SODIUM 125 MG CAP.SPRINK PO SCH (21:24)
[2020-02-03] MEDS: ACETAMINOPHEN 325 MG TABLET PO PRN (21:30)
[2020-02-03] MEDS ORDERED: ATORVASTATIN CALCIUM 80 MG TABLET PO SCH (22:00)
[2020-02-04] MEDS: PANTOPRAZOLE SODIUM 40 MG TABLET.DR PO SCH ×2 (05:30→17:05)
[2020-02-04] MEDS: ENOXAPARIN SODIUM INJ 100 MG/1 ML DISP.SYRIN SUBCUT SCH (05:30)
--- NOTE | 2020-02-04 09:10 | PDOC CONSULTATION ---
Consultation Consult Date: 02/04/20 Attending physician:: SHELBIE MARROQUIN Provider Consulted: HEIDI ZAPIEN Consult reason:: Elevated troponin History of Present Illness Admission Date/PCP: 02/02/20 18:13 History of Present Illness: The history is obtained from record review as the patient is unable to provide any significant information. DAVID SANTANA is a 74 year old male with history of dementia, behavioral disturbance, hypertension, hyperlipidemia, DM2, and osteoarthritis who is consulted to our service for an elevated troponin. He presented to our emergency room on 02/02/2020 from [facility] via EMS with mental status changes. He was in his usual state of health until after lunch when he was found slumped over and less responsive. EMS found him to be hypotensive where his initial blood pressure was 60/40 therefore he was put on Levophed. He also received 3 L of normal saline with a significant improvement in his blood pressure. Physical exam on 02/04/2020: GENERAL: Demented. Unable to answer any questions. Not in acute distress. Well groomed and well developed. HEENT: Normocephalic, atraumatic. Pupils equal. Sclerae anicteric. Oropharynx moist. NECK: No JVD. No carotid bruits. LUNGS: Clear to auscultation bilaterally. Normal respiratory effort without the use of accessory muscles or intercostal retractions. CARDIOVASCULAR: Regular rate and rhythm, normal S1 and S2 without murmurs, rubs, or gallops. PMI not displaced. ABDOMEN: No masses or tenderness to palpation. No bruit. No splenomegaly or hepatomegaly. No abdominal aorta bruit noted. EXTREMITIES: No edema, no cyanosis, no clubbing. +2 pulses femoral and pedal pulses bilaterally. SKIN: No lesions or rashes. MUSCULOSKELETAL: No chest tenderness to palpation. NEUROLOGIC: Nonfocal. No gross sensory or motor deficits bilateral upper or lower extremities. Past Medical History Cardiac Medical History: Reports: Hyperlipidema, Hypertension Denies: Atrial Fibrillation, Congestive Heart Failure, Myocardial Infarction Neurological Medical History: Reports: Other - dementia Endocrine Medical History: Reports: Diabetes Mellitus Type 2 Malignancy Medical History: Musculoskeltal Medical History: Reports: Arthritis - osteo Skin Medical History: Reports: Other - blister on foot Psychiatric Medical History: Reports: Dementia - Alzheimer's, Depression Hematology: Infectious Medical History: Past Surgical History Past Surgical History: Reports: Appendectomy, Orthopedic Surgery - left hip replacement, Tonsillectomy Denies: Cholecystectomy Social History Lives with: Other - LONG-TERM Smoking Status: Unknown if Ever Smoked Frequency of Alcohol Use: None Hx Recreational Drug Use: No Hx Prescription Drug Abuse: No - Advance Directive Resuscitation Status: Do Not Resuscitate Family History Family History: Reviewed & Not Pertinent, Other - Patient states he does not know his family history he left home when he was 19 did not know it before then and never went back home now they're both he is an only child. Parental Family History Reviewed: Yes Children Family History Reviewed: Yes Sibling(s) Family History Reviewed.: Yes Medication/Allergy Home Medications: Aspirin [Ecotrin 81 mg EC Tablet] 81 mg PO DAILY 01/10/17 Celecoxib [Celebrex 200 mg Capsule] 200 mg PO DAILY 01/10/17 Gabapentin [Neurontin 300 mg Capsule] 300 mg PO Q8 01/10/17 Hydrochlorothiazide [Hydrodiuril 12.5 mg Tablet] 12.5 mg PO DAILY 01/10/17 Lisinopril [Prinivil 40 mg Tablet] 40 mg PO DAILY 01/10/17 Metoprolol Succinate [Toprol Xl 50 mg Tab.sr] 50 mg PO DAILY 01/10/17 Thiamine HCl 100 mg PO DAILY 08/22/17 Cyclobenzaprine HCl [Flexeril 10 mg Tablet] 10 mg PO BIDP PRN 08/29/17 Acetaminophen [Tylenol] 650 mg PO BID 02/03/20 Ascorbic Acid [Vitamin C 500 mg Tablet] 500 mg PO DAILY 02/03/20 Bacitracin Zinc [Bacitracin Oint 15 gm] 1 applic TP ASDIR PRN 02/03/20 Divalproex Sodium [Depakote Sprinkle 125 Mg Capsule] 125 mg PO QHS 02/03/20 Insulin Lispro [Humalog Kwikpen] 0 unit SQ .SLIDING SCALE 02/03/20 Lorazepam [Ativan 0.5 mg Tablet] 0.5 mg PO Q12HP PRN 02/03/20 Multivitamin [Tab-A-Frannie (Multiple Vitamin) Tablet] 1 tab PO DAILY 02/03/20 Risperidone [Risperdal 1 mg Tablet] 0.5 mg PO DAILY 02/03/20 Sertraline HCl 25 mg PO DAILY 02/03/20 Zinc Gluconate [Zinc] 30 mg PO DAILY 02/03/20 Allergies/Adverse Reactions: No Known Allergies Allergy (Verified 02/02/20 19:06) Physical Exam Vital Signs: Temp Pulse Resp BP Pulse Ox 98.4 F 94 16 147/65 H 94 02/04/20 07:38 02/04/20 07:17 02/04/20 07:17 02/04/20 07:17 02/04/20 07:17 Intake & Output 02/03/20 02/04/20 02/05/20 06:59 06:59 06:59 Intake Total 3247 1188 Output Total 550 Balance 2697 1188 Weight 75.6 kg 75.5 kg Results Laboratory Results: 02/03/20 10:30 02/03/20 10:30 02/03/20 02/03/20 02/03/20 10:30 10:30 10:30 WBC 5.8 RBC 3.77 L Hgb 11.5 L Hct 34.0 L MCV 90 MCH 30.4 MCHC 33.7 RDW 14.2 H Plt Count 161 Sodium 138.6 Potassium 3.8 Chloride 106 Carbon Dioxide 26 Anion Gap 7 BUN 11 Creatinine 0.52 Est GFR ( Amer) > 60 Glucose 82 Calcium 8.3 L Magnesium 1.8 Triglycerides 86 Cholesterol 139.25 LDL Cholesterol Direct 85 VLDL Cholesterol 17.0 HDL Cholesterol 35 L TSH 0.36 L Free T4 02/03/20 02/03/20 10:30 10:30 WBC Cancelled RBC Cancelled Hgb Cancelled Hct Cancelled MCV Cancelled MCH Cancelled MCHC Cancelled RDW Cancelled Plt Count Cancelled Sodium Potassium Chloride Carbon Dioxide Anion Gap BUN Creatinine Est GFR ( Amer) Glucose Calcium Magnesium Triglycerides Cholesterol LDL Cholesterol Direct VLDL Cholesterol HDL Cholesterol TSH Free T4 1.03 02/02/20 02/02/20 02/02/20 15:10 15:10 18:25 Creatine Kinase 59 CK-MB (CK-2) 1.48 Troponin I < 0.012 0.540 NT-Pro-B Natriuret Pep 02/02/20 02/03/20 02/03/20 21:40 10:30 10:30 Creatine Kinase CK-MB (CK-2) Troponin I 0.776 0.295 NT-Pro-B Natriuret Pep 1500 H 02/03/20 10:30 Creatine Kinase 953 H CK-MB (CK-2) Troponin I NT-Pro-B Natriuret Pep Impressions: Chest X-Ray 02/02/20 14:50 IMPRESSION: Left medial basilar patchy airspace opacities. Chest/Abdomen CTA 02/03/20 00:00 IMPRESSION: No emboli visualized in the main pulmonary arteries or the segmental branches.Bilateral posterior lower lobe confluent airspace opacities - atelectasis and small pleural effusions. 02/03/20 10:30 02/03/20 10:30 MCV 90 fl (80-97) 02/03/20 10:30 MCV Cancelled 02/03/20 10:30 MCH 30.4 pg (27.0-33.4) 02/03/20 10:30 MCH Cancelled 02/03/20 10:30 MCHC 33.7 g/dL (32.0-36.0) 02/03/20 10:30 MCHC Cancelled 02/03/20 10:30 RDW 14.2 % (11.5-14.0) H 02/03/20 10:30 RDW Cancelled 02/03/20 10:30 Seg Neutrophils % 81.0 % (42-78) H 02/02/20 15:10 Chloride 106 mmol/L (98-107) 02/03/20 10:30 Carbon Dioxide 26 mmol/L (22-30) 02/03/20 10:30 Anion Gap 7 (5-19) 02/03/20 10:30 Est GFR ( Amer) > 60 (>60) 02/03/20 10:30 Glucose 82 mg/dL (75-110) 02/03/20 10:30 Lactic Acid 1.3 mmol/L (0.7-2.1) 02/02/20 16:40 Calcium 8.3 mg/dL (8.4-10.2) L 02/03/20 10:30 Magnesium 1.8 mg/dL (1.6-2.3) 02/03/20 10:30 Total Bilirubin 0.7 mg/dL (0.2-1.3) 02/02/20 15:10 AST 54 U/L (17-59) 02/02/20 15:10 Alkaline Phosphatase 90 U/L (38-126) 02/02/20 15:10 Total Protein 6.4 g/dL (6.3-8.2) 02/02/20 15:10 Albumin 3.6 g/dL (3.5-5.0) 02/02/20 15:10 Triglycerides 86 mg/dL (<150) 02/03/20 10:30 Cholesterol 139.25 mg/dL (0-200) 02/03/20 10:30 LDL Cholesterol Direct 85 mg/dL (<100) 02/03/20 10:30 VLDL Cholesterol 17.0 mg/dL (10-31) 02/03/20 10:30 HDL Cholesterol 35 mg/dL (>40) L 02/03/20 10:30 TSH 0.36 uIU/mL (0.47-4.68) L 02/03/20 10:30 Free T4 1.03 ng/dL (0.78-2.19) 02/03/20 10:30 Urine Color RC 02/02/20 16:40 Urine Appearance SLIGHTLY-CLOUDY 02/02/20 16:40 Urine pH 6.0 (5.0-9.0) 02/02/20 16:40 Ur Specific [place] 1.017 02/02/20 16:40 Urine Protein 100 mg/dL (NEGATIVE) H 02/02/20 16:40 Urine Glucose (UA) NEGATIVE mg/dL (NEGATIVE) 02/02/20 16:40 Urine Ketones NEGATIVE mg/dL (NEGATIVE) 02/02/20 16:40 Urine Blood NEGATIVE (NEGATIVE) 02/02/20 16:40 Urine Nitrite NEGATIVE (NEGATIVE) 02/02/20 16:40 Ur Leukocyte Esterase NEGATIVE (NEGATIVE) 02/02/20 16:40 Urine WBC (Auto) 1 /HPF 02/02/20 16:40 Urine RBC (Auto) 4 /HPF 02/02/20 16:40 02/02/20 02/02/20 02/02/20 15:10 15:10 18:25 Creatine Kinase 59 CK-MB (CK-2) 1.48 Troponin I < 0.012 0.540 NT-Pro-B Natriuret Pep 02/02/20 02/03/20 02/03/20 21:40 10:30 10:30 Creatine Kinase CK-MB (CK-2) Troponin I 0.776 0.295 NT-Pro-B Natriuret Pep 1500 H 02/03/20 10:30 Creatine Kinase 953 H CK-MB (CK-2) Troponin I NT-Pro-B Natriuret Pep Current Medication List Generic Name Dose Route Start Last Admin Trade Name Freq PRN Reason Stop Dose Admin Acetaminophen 975 mg 02/03/20 10:00 02/03/20 17:10 Tylenol 325 Mg Tablet PO 03/04/20 09:59 Not Given TID CHARLES Aspirin 81 mg 02/03/20 10:00 02/03/20 09:17 Aspirin 81 Mg Chewable Tablet PO 03/04/20 09:59 81 mg DAILY CHARLES Administration Atorvastatin Calcium 80 mg 02/03/20 22:00 02/03/20 21:26 Lipitor 80 Mg Tablet PO 03/04/20 21:59 80 mg QHS CHARLES Administration Celecoxib 200 mg 02/03/20 10:00 02/03/20 09:17 Celebrex 200 Mg Capsule PO 03/04/20 09:59 200 mg DAILY CHARLES Administration Cyclobenzaprine HCl 5 mg 02/02/20 22:00 02/03/20 21:25 Flexeril 10 Mg Tablet PO 03/03/20 21:59 5 mg Q12 CHARLES Administration Divalproex Sodium 125 mg 02/02/20 22:00 02/03/20 21:24 Depakote Sprinkle 125 Mg Capsule PO 03/03/20 21:59 125 mg QHS CHARLES Administration Gabapentin 300 mg 02/02/20 18:30 02/03/20 17:10 Neurontin 300 Mg Capsule PO 03/03/20 18:29 Not Given TID CHARLES Levalbuterol HCl 0.63 mg 02/02/20 18:15 Xopenex Neb 0.63 Mg/3 Ml Ampul NEB 03/03/20 18:14 RTQ4HP PRN SHORTNESS OF BREATH Ondansetron HCl 4 mg 02/02/20 18:15 Zofran Inj/Pf 4 Mg/2 Ml Sdv IV 03/03/20 18:14 Q6HP PRN FOR NAUSEA/VOMITING Pantoprazole Sodium 40 mg 02/03/20 17:00 02/04/20 05:[address] Tablet PO 03/04/20 16:59 40 mg BID@0600,1700 CHARLES Administration Risperidone 0.5 mg 02/03/20 10:00 02/03/20 09:17 Risperdal 0.25 Mg Tablet PO 03/04/20 09:59 0.5 mg DAILY CHARLES Administration Sertraline HCl 25 mg 02/03/20 10:00 02/03/20 09:17 Zoloft 50 Mg Tablet PO 03/04/20 09:59 25 mg DAILY CHARLES Administration Discontinued Medications Generic Name Dose Route Start Last Admin Trade Name Freq PRN Reason Stop Dose Admin Acetaminophen 650 mg 02/02/20 18:15 02/03/20 21:30 Tylenol 325 Mg Tablet PO 03/03/20 18:14 650 mg Q4HP PRN Administration FOR PAIN Aspirin 324 mg 02/02/20 19:32 02/02/20 20:41 Aspirin 81 Mg Chewable Tablet PO 02/02/20 19:33 324 mg NOW ONE Administration Azithromycin 500 mg 02/02/20 17:12 02/02/20 18:18 Zithromax Inj 500 Mg Vial IV 02/02/20 17:13 500 mg IVBAG (ED) ONE Administration Celecoxib 200 mg 02/02/20 19:00 02/02/20 20:44 Celebrex 200 Mg Capsule PO 02/02/20 19:01 200 mg NOW ONE Administration Cyclobenzaprine HCl 10 mg 02/03/20 13:50 Flexeril 10 Mg Tablet PO 03/04/20 13:49 BIDP PRN FOR MUSCLE SPASMS Enoxaparin Sodium 40 mg 02/03/20 10:00 Lovenox Inj 40 Mg/0.4 Ml Disp.Syrin SUBCUT 03/04/20 09:59 DAILY CHARLES Enoxaparin Sodium 85 mg 02/03/20 06:00 02/04/20 05:30 Lovenox Inj 100 Mg/1 Ml Disp.Syrin SUBCUT 03/04/20 05:59 85 mg Q12A CHARLES Administration Enoxaparin Sodium 85 mg 02/02/20 19:45 02/02/20 22:00 Lovenox Inj 100 Mg/1 Ml Disp.Syrin SUBCUT 02/02/20 19:46 Not Given NOW ONE Furosemide 20 mg 02/03/20 16:00 02/03/20 17:09 Lasix 20 Mg Tablet PO 02/03/20 16:01 Not Given NOW ONE Sodium Chloride 1,000 mls @ 0 mls/hr 02/02/20 15:31 02/02/20 17:23 Nacl 0.9% 1000 Ml Iv Soln IV 02/02/20 15:32 Infused BOLUS ONE Infusion Wide Open Sodium Chloride 1,000 mls @ 0 mls/hr 02/02/20 17:00 02/02/20 19:14 Nacl 0.9% 1000 Ml Iv Soln IV 02/02/20 17:01 Infused BOLUS ONE Infusion Wide Open Sodium Chloride 1,000 mls @ 200 mls/hr 02/02/20 17:00 02/02/20 19:15 Nacl 0.9% 1000 Ml Iv Soln IV 02/02/20 21:59 Infused NOW ONE Infusion Ceftriaxone Sodium/Dextrose 1 gm in 50 mls @ 100 mls/hr 02/02/20 17:12 02/02/20 18:47 Rocephin Rtu 1 Gm/D5w 50 Ml Premix IV 02/02/20 17:41 Infused NOW ONE Infusion Norepinephrine Bitartrate 4 mg 250 mls @ 0 mls/hr 02/02/20 17:49 02/02/20 16:04 / Dextrose IV 03/03/20 17:48 Infused CONTINUOUS PRN Titration THIS MED IS NOT "PRN" Protocol Titrate Ceftriaxone Sodium/Dextrose 1 gm in 50 mls @ 100 mls/hr 02/03/20 18:00 02/03/20 18:23 Rocephin Rtu 1 Gm/D5w 50 Ml Premix IV 02/10/20 17:59 Infused QPM CHARLES Infusion Sodium Chloride 1,000 mls @ 150 mls/hr 02/02/20 18:51 02/03/20 12:04 Nacl 0.9% 1000 Ml Iv Soln IV 03/03/20 18:50 Infused CONTINUOUS PRN Infusion THIS MED IS NOT "PRN" Azithromycin 500 mg/ Dextrose 250 mls @ 250 mls/hr 02/03/20 18:00 02/03/20 21:27 IV 02/10/20 17:59 Infused QPM CHARLES Infusion Lorazepam 0.5 mg 02/03/20 12:01 02/03/20 13:18 Ativan Inj 2 Mg/1 Ml Vial IV 02/03/20 23:59 [address] PRN Administration THIS MED IS NOT "PRN" Assessment & Plan - Diagnosis (1) Elevated troponin Is this a current diagnosis for this admission?: Yes Plan: Likely secondary to a type II AK due to his severe hypotension that appeared to be secondary to hypovolemia. The patient is currently not a candidate for invasive cardiovascular assessment due to his dementia. His troponin already peaked at 0.77 and it is already trending down. He is hemodynamically stable. Recommendations: -Continue with current medical management. -Echocardiogram to assess systolic function. -Cardiology does not have further recommendations therefore we will signed off the case. I will review the echocardiogram when available. -Please reconsult if necessary.
[2020-02-04] MEDS: RISPERIDONE 0.25 MG TABLET PO SCH (10:18)
[2020-02-04] MEDS: CELECOXIB 200 MG CAPSULE PO SCH (10:18)
[2020-02-04] MEDS: GABAPENTIN 300 MG CAPSULE PO SCH ×2 (10:18→13:41)
[2020-02-04] MEDS: ASPIRIN 81 MG TABLET, CHEWABLE PO SCH (10:18)
[2020-02-04] MEDS: SERTRALINE HCL 50 MG TABLET PO SCH (10:18)
[2020-02-04] MEDS: ACETAMINOPHEN 325 MG TABLET PO SCH ×2 (10:19→13:41)
[2020-02-04] MEDS: CYCLOBENZAPRINE HCL 10 MG TABLET PO SCH (10:19)
--- NOTE | 2020-02-04 16:22 | PDOC DISCHARGE SUMMARY ---
Impression - Admit/DC Date/PCP Admission Date/Primary Care Provider: 02/02/20 18:13 Discharge Date: 02/04/20 - Discharge Diagnosis (1) Acute metabolic encephalopathy Is this a current diagnosis for this admission?: Yes (2) Hypotension due to hypovolemia Is this a current diagnosis for this admission?: Yes (3) Dehydration Is this a current diagnosis for this admission?: Yes (4) Dementia with behavioral disturbance Is this a current diagnosis for this admission?: Yes (5) DM2 (diabetes mellitus, type 2) Is this a current diagnosis for this admission?: Yes (6) Orthostatic syncope Is this a current diagnosis for this admission?: Yes (7) Hypertension Is this a current diagnosis for this admission?: Yes (8) Advance care planning Is this a current diagnosis for this admission?: Yes (9) NSTEMI (non-ST elevated myocardial infarction) Is this a current diagnosis for this admission?: Yes (10) ELENI (acute kidney injury) Is this a current diagnosis for this admission?: Yes - Assessment Summary: Mr. DAVID GILMORE is a 74 year old [place] with PMH of dementia with behavioral disturbance, HTN, HLD, DM2, osteoarthritis who presented on 02/02/2020 from [facility] with AMS. He appeared to be in his usual state of health on the day of admission but, right after lunch, he took a nap and, after his nap, he walked out and sat in the common area, where he "suddenly slumped over" and became less responsive than usual. He did not have LOC. He became pale and clammy, and EMS was called. EMS found him to be hypotensive and brought him to the ED. Upon initial presentation to the ED, BP was 60/40 and he was initiated on Levophed. His BP improved dramatically after several IVF boluses and Levophed was quickly discontinued. At baseline, he doesn't "speak" per se, but he does mumble, although sometimes incoherently. He is disoriented and frequently does not recognize family. He walks independently and is physically quite strong. He does have recent onset of decreased appetite and oral intake and, per his [facility], he has lost >10 pounds in the last 4-6 weeks. Hypotension due to Hypovolemia: Per the staff at his [facility] and his family, it sounds like he has been having progression of his underlying dementia over the last few months, and his appetite and oral intake have decreased dramatically as a result. He has not only been losing weight, but appeared quite dehydrated on exam on presentation. I suspect his presentation was due to orthostatic pre- syncope in the setting of hypovolemia. Infection was ruled out with negative blood cultures, negative urine culture and negative COVID test. His CXR was without clear evidence of an infiltrate. His symptoms resolved without antibiotic therapy. CTA Chest was negative for embolus. NSTEMI, type 2: on presentation, troponin was initially undetectable and EKG showed no ischemic changes. He is demented and therefore a poor historian, but he is able to point to his hips when I ask him about pain, and denies chest pain on repeated asking. Troponin was minimally elevated, likely due to hypotension/hypovolemia. Cardiology was consulted and agreed with this assessment. TTE was performed, the results of which are currently pending. No further work up necessary. Aute Kidney Injury: due to hypotension/hypovolemia, and resolved with IVF hydration and holding of BP medications. Prior history of Hypertension: RESOLVED. All of his home BP medications have been discontinued and his BP is normal. He no longer has HTN after recent weight loss. Prior history of DM2: RESOLVED. HbA1c 5.6% and glucose well controlled without insulin. He has no need for insulin therapy, which has been discontinued. He no longer has DM2 after recent weight loss. Chronic Pain due to OA: Patient's only complaint is bilateral hip pain, which he has at baseline. Fall precautions. Goals of Care: I had an extensive discussion with his daughter, Angela Justice, about his health and the progressive nature of dementia. She would like to make sure that any easily reversible illness is treated, but does not want him to be hospitalized for an extended period of time, or to undergo uncomfortable/confusing procedures and tests. I have advised her that Mr. Gilmore would be an excellent candidate for home hospice services, which she plan to pursue. Code Status: DNR/DNI - Additional Information Resuscitation Status: Do Not Resuscitate Discharge Diet: Regular Discharge Activity: Activity As Tolerated, Supervised Activity Home Medications: Aspirin [Ecotrin 81 mg EC Tablet] 81 mg PO DAILY 01/10/17 Celecoxib [Celebrex 200 mg Capsule] 200 mg PO DAILY 01/10/17 Gabapentin [Neurontin 300 mg Capsule] 300 mg PO Q8 01/10/17 Cyclobenzaprine HCl [Flexeril 10 mg Tablet] 10 mg PO BIDP PRN 08/29/17 Acetaminophen [Tylenol] 650 mg PO BID 02/03/20 Bacitracin Zinc [Bacitracin Oint 15 gm] 1 applic TP ASDIR PRN 02/03/20 Divalproex Sodium [Depakote Sprinkle 125 mg Capsule] 125 mg PO QHS 02/03/20 Lorazepam [Ativan 0.5 mg Tablet] 0.5 mg PO Q12HP PRN 02/03/20 Risperidone [Risperdal 1 mg Tablet] 0.5 mg PO DAILY 02/03/20 Sertraline HCl 25 mg PO DAILY 02/03/20 History of Present Illiness History of Present Illness: Mr. DAVID GILMORE is a 74 year old [place] with PMH of dementia with behavioral disturbance, HTN, DM2, osteoarthritis who presented from [facility] with AMS. History gathered from staff at his [facility] and his daughter/POA, Angela. He appeared to be in his usual state of health today. Right after lunch, he took a nap. After his nap, he walked out and sat in the common area, where he "suddenly slumped over" and became less responsive than usual. He did not have LOC. He became pale and clammy, and EMS was called. EMS found him to be hypotensive and brought him to the ED. At baseline, he doesn't "speak" per se, but he does mumble, although sometimes incoherently. He is disoriented and frequently does not recognize family. He walks independently and is physically quite strong. He does have recent onset of decreased appetite and oral intake, and has lost 10 pounds in the last 4-6 weeks. He has had no sick contacts. No recent travel. No known fevers, cough, SOB, CP, or abdominal pain. He has a tendency to "pick at his skin" and gets bacitracin to multiple superficial skin lesions as well as a foot blister, but none of them have looked infected recently. No recent antibiotic usage. He is not tested re gularly at his facility, but they also do not allow visitors there. Upon initial presentation to the ED, BP was 60/40 and he was initiated on Levophed. His BP improved dramatically after several IVF boluses and Levophed was discontinued. Physical Exam Vital Signs: Temp Pulse Resp BP Pulse Ox 98.4 F 56 L 16 119/54 L 93 02/04/20 07:38 02/04/20 14:00 02/04/20 10:53 02/04/20 10:53 02/04/20 09:04 Intake & Output 02/03/20 02/04/20 02/05/20 06:59 06:59 06:59 Intake Total 3247 1188 0 Output Total 550 Balance 2697 1188 0 Weight 75.6 kg 75.5 kg Results Laboratory Results: WBC 5.8 10^3/uL (4.0-10.5) 02/03/20 10:30 WBC Cancelled 02/03/20 10:30 RBC 3.77 10^6/uL (4.35-5.55) L 02/03/20 10:30 RBC Cancelled 02/03/20 10:30 Hgb 11.5 g/dL (13.5-17.0) L 02/03/20 10:30 Hgb Cancelled 02/03/20 10:30 Hct 34.0 % (37.9-51.0) L 02/03/20 10:30 Hct Cancelled 02/03/20 10:30 MCV 90 fl (80-97) 02/03/20 10:30 MCV Cancelled 02/03/20 10:30 MCH 30.4 pg (27.0-33.4) 02/03/20 10:30 MCH Cancelled 02/03/20 10:30 MCHC 33.7 g/dL (32.0-36.0) 02/03/20 10:30 MCHC Cancelled 02/03/20 10:30 RDW 14.2 % (11.5-14.0) H 02/03/20 10:30 RDW Cancelled 02/03/20 10:30 Plt Count 161 10^3/uL (150-450) 02/03/20 10:30 Plt Count Cancelled 02/03/20 10:30 Lymph % (Auto) 11.6 % (13-45) L 02/02/20 15:10 Jay % (Auto) 6.0 % (3-13) 02/02/20 15:10 Eos % (Auto) 0.9 % (0-6) 02/02/20 15:10 Baso % (Auto) 0.5 % (0-2) 02/02/20 15:10 Absolute Neuts (auto) 7.1 10^3/uL (1.7-8.2) 02/02/20 15:10 Absolute Lymphs (auto) 1.0 10^3/uL (0.5-4.7) 02/02/20 15:10 Absolute Monos (auto) 0.5 10^3/uL (0.1-1.4) 02/02/20 15:10 Absolute Eos (auto) 0.1 10^3/uL (0.0-0.6) 02/02/20 15:10 Absolute Basos (auto) 0.0 10^3/uL (0.0-0.2) 02/02/20 15:10 Seg Neutrophils % 81.0 % (42-78) H 02/02/20 15:10 Platelet Estimate Cancelled 02/03/20 10:30 Sodium 138.6 mmol/L (137-145) 02/03/20 10:30 Potassium 3.8 mmol/L (3.6-5.0) 02/03/20 10:30 Chloride 106 mmol/L (98-107) 02/03/20 10:30 Carbon Dioxide 26 mmol/L (22-30) 02/03/20 10:30 Anion Gap 7 (5-19) 02/03/20 10:30 BUN 11 mg/dL (7-20) 02/03/20 10:30 Creatinine 0.52 mg/dL (0.52-1.25) 02/03/20 10:30 Est GFR ( Amer) > 60 (>60) 02/03/20 10:30 Est GFR (MDRD) Non-Af > 60 (>60) 02/03/20 10:30 Glucose 82 mg/dL (75-110) 02/03/20 10:30 Hemoglobin A1c % 5.6 % (4.7-6.0) 02/03/20 10:30 Lactic Acid 1.3 mmol/L (0.7-2.1) 02/02/20 16:40 Calcium 8.3 mg/dL (8.4-10.2) L 02/03/20 10:30 Magnesium 1.8 mg/dL (1.6-2.3) 02/03/20 10:30 Total Bilirubin 0.7 mg/dL (0.2-1.3) 02/02/20 15:10 Direct Bilirubin 0.4 mg/dL (0.0-0.4) 02/02/20 15:10 Neonat Total Bilirubin Not Reportable 02/02/20 15:10 Neonat Direct Bilirubin Not Reportable 02/02/20 15:10 Neonat Indirect Bili Not Reportable 02/02/20 15:10 AST 54 U/L (17-59) 02/02/20 15:10 ALT 36 U/L (<50) 02/02/20 15:10 Alkaline Phosphatase 90 U/L (38-126) 02/02/20 15:10 Creatine Kinase 953 U/L (55-170) H 02/03/20 10:30 CK-MB (CK-2) 1.48 ng/mL (<4.55) 02/02/20 15:10 Troponin I 0.295 ng/mL 02/03/20 10:30 NT-Pro-B Natriuret Pep 1500 pg/mL (<125) H 02/03/20 10:30 Total Protein 6.4 g/dL (6.3-8.2) 02/02/20 15:10 Albumin 3.6 g/dL (3.5-5.0) 02/02/20 15:10 Triglycerides 86 mg/dL (<150) 02/03/20 10:30 Cholesterol 139.25 mg/dL (0-200) 02/03/20 10:30 LDL Cholesterol Direct 85 mg/dL (<100) 02/03/20 10:30 VLDL Cholesterol 17.0 mg/dL (10-31) 02/03/20 10:30 HDL Cholesterol 35 mg/dL (>40) L 02/03/20 10:30 TSH 0.36 uIU/mL (0.47-4.68) L 02/03/20 10:30 Free T4 1.03 ng/dL (0.78-2.19) 02/03/20 10:30 Urine Color RC 02/02/20 16:40 Urine Appearance SLIGHTLY-CLOUDY 02/02/20 16:40 Urine pH 6.0 (5.0-9.0) 02/02/20 16:40 Ur Specific [place] 1.017 02/02/20 16:40 Urine Protein 100 mg/dL (NEGATIVE) H 02/02/20 16:40 Urine Glucose (UA) NEGATIVE mg/dL (NEGATIVE) 02/02/20 16:40 Urine Ketones NEGATIVE mg/dL (NEGATIVE) 02/02/20 16:40 Urine Blood NEGATIVE (NEGATIVE) 02/02/20 16:40 Urine Nitrite NEGATIVE (NEGATIVE) 02/02/20 16:40 Urine Bilirubin NEGATIVE (NEGATIVE) 02/02/20 16:40 Urine Urobilinogen 4.0 mg/dL (<2.0) H 02/02/20 16:40 Ur Leukocyte Esterase NEGATIVE (NEGATIVE) 02/02/20 16:40 Urine WBC (Auto) 1 /HPF 02/02/20 16:40 Urine RBC (Auto) 4 /HPF 02/02/20 16:40 U Hyaline Cast (Auto) 7 /LPF 02/02/20 16:40 Urine Bacteria (Auto) TRACE /HPF 02/02/20 16:40 Squamous Epi Cells Auto 1 /HPF 02/02/20 16:40 Urine Mucus (Auto) RARE /LPF 02/02/20 16:40 Urine Ascorbic Acid 40 (NEGATIVE) H 02/02/20 16:40 COVID-19 Source See comment 02/02/20 18:21 COVID-19 (KAUSHIK) Not Detected (Not Detect) 02/02/20 18:21 Slides for Path Review Cancelled 02/03/20 10:30 02/02/20 02/02/20 02/02/20 15:10 18:25 21:40 CK-MB (CK-2) 1.48 Troponin I < 0.012 0.540 0.776 NT-Pro-B Natriuret Pep 02/03/20 02/03/20 10:30 10:30 CK-MB (CK-2) Troponin I 0.295 NT-Pro-B Natriuret Pep 1500 H Impressions: Chest X-Ray 02/02/20 14:50 IMPRESSION: Left medial basilar patchy airspace opacities. Chest/Abdomen CTA 02/03/20 00:00 IMPRESSION: No emboli visualized in the main pulmonary arteries or the segmental branches.Bilateral posterior lower lobe confluent airspace opacities - atelectasis and small pleural effusions. Stroke Is this a Stroke Patient?: No Acute Heart Failure Is this a Heart Failure Patient?: No
[2020-02-04 16:48] VITALS: BP 233/192
--- NOTE | 2020-02-04 20:11 | XCELERA REPORT ---
[address] [address] Transthoracic Echocardiogram Report Name: DAVID SANTANA Age: 74 yrs Gender: Male : 1945 Patient Status: Inpatient Patient Location: [address] [place], [place] [address] Study Date: 02/04/2020 01:46 PM Height: 71 in Weight: 156 lb BSA: 1.9 m2 Procedure: A complete two-dimensional transthoracic echocardiogram was performed (2D, M-mode, spectral and color flow Doppler). Study Quality: Technically suboptimal. Reason For Study: NSTEMI, hypotension Ordering Physician: SHELBIE MARROQUIN Performed By: Miroslava Morgan Interpretation Summary There is mild concentric left ventricular hypertrophy. Left ventricular systolic function is normal. The Ejection Fraction estimate is 65-70%. Doppler measurements suggest impaired left ventricular relaxation, which is associated with grade I/IV or mild diastolic dysfunction. Regional wall motion abnormalities cannot be excluded due to limited visualization. Trace MR. No prior studies for comparison. MMode/2D Measurements & Calculations RVDd: 2.1 cm LVIDd: 5.4 cm FS: 34.0 % Ao root diam: 2.9 cm IVSd: 1.1 cm LVIDs: 3.5 cm EDV(Teich): 138.8 ml Ao root area: 6.6 cm2 LVPWd: 1.2 cm ESV(Teich): 52.1 ml EF(Teich): 62.4 % Doppler Measurements & Calculations MV E max derek: MV dec slope: Ao V2 max: LV V1 max P.1 cm/sec 483.5 cm/sec2 115.8 cm/sec 2.5 mmHg MV A max derek: MV dec time: 0.16 sec Ao max PG: LV V1 max: 87.2 cm/sec 5.4 mmHg 79.2 cm/sec MV E/A: 0.86 PA V2 max: 124.4 cm/sec PA max P.2 mmHg Left Ventricle There is mild concentric left ventricular hypertrophy. Left ventricular systolic function is normal. The Ejection Fraction estimate is 65-70%. Doppler measurements suggest impaired left ventricular relaxation, which is associated with grade I/IV or mild diastolic dysfunction. Regional wall motion abnormalities cannot be excluded due to limited visualization. Right Ventricle The right ventricle is normal in size, thickness and function. The right ventricular systolic function is normal. Atria The right atrium is normal. The left atrial size is normal. The interatrial septum is difficult to see, but appears to be grossly normal. Mitral Valve The mitral valve is normal in structure and function. There is a trace amount of mitral regurgitation. Aortic Valve The aortic valve is not well visualized secondary to technical limitations. No aortic regurgitation is present. Tricuspid Valve The tricuspid is normal in structure and function. No tricuspid regurgitation. Pulmonic Valve The pulmonic valve is not well visualized. There is no pulmonic valvular regurgitation. : SHELBIE MARROQUIN Antonio
== END 2020-02-04 17:40 | DRG 280 ==
LOC: ER 14:43 → EH 18:13 → 3W 19:15
PROVIDERS: ADMIT Hospitalist; ATTEND Hospitalist
DX: I95.1 Orthostatic hypotension (principal); G93.41 Metabolic encephalopathy; I21.A1 Myocardial infarction type 2; J96.01 Acute respiratory failure with hypoxia; N17.9 Acute kidney failure, unspecified; F02.81 Dementia in other diseases classified elsewhere, unspecified severity, with behavioral disturbance; E86.1 Hypovolemia; G30.9 Alzheimer's disease, unspecified; E11.42 Type 2 diabetes mellitus with diabetic polyneuropathy; I10 Essential (primary) hypertension; M19.90 Unspecified osteoarthritis, unspecified site; G89.29 Other chronic pain; Z66 Do not resuscitate; Z20.828 Contact with and (suspected) exposure to other viral communicable diseases; Z79.84 Long term (current) use of oral hypoglycemic drugs; Z79.82 Long term (current) use of aspirin; Z79.891 Long term (current) use of opiate analgesic; Z79.899 Other long term (current) drug therapy
CPT/HCPCS: 36415; 71045; 71275; 80048; 80053; 80061; 81001; 82550; 82553; 83036; 83605; 83735; 83880; 84439; 84443; 84484; 85025; 85027; 87040; 87086; 87635; 93005; 93010; 93306; 94799; 96361; 96365; 99285; C9803; J0456; J0696; J1650; J2060; J3490; J7030; J7060